=== PATIENT | male | born 2000 | race Caucasian/White ===

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

== ENCOUNTER 2019-10-20 13:11 | Emergency (ER) | payer BC ==
[2019-10-20] MEDS ORDERED: MORPHINE 4 MG/ML SYR ONE (14:46)
[2019-10-20] MEDS ORDERED: ONDANSETRON 4 MG/2 ML VIAL ONE (14:46)
[2019-10-20] MEDS ORDERED: NA CHLORIDE 0.9% 1,000 ML ONE (14:46)
[2019-10-20 14:47] LABS: Absolute Lymphocytes (CBC) 1.7 K/uL (0.7-4.9); Basophils % 0.9 % (0-1.3); Hematocrit 41.9 % (39.6-49.0); Lymphocytes % 19.3 % (15.3-44.8); MPV 9.1 fL (7.6-11.3); RBC Red Blood Cell Count 4.81 M/uL (4.33-5.43)
[2019-10-20 15:11] LABS: Albumin 4.1 g/dL (3.4-5.0); Bilirubin Direct 0.1 mg/dL (0-0.2); Bilirubin Total 0.5 mg/dL (0.2-1.0); Potassium 3.6 mmol/L (3.5-5.1); Protein, Total 7.1 g/dL (6.4-8.2)
--- NOTE | 2019-10-20 15:23 | RAD REPORT ---
EXAM DESCRIPTION: CT - Stone Protocol - 10/20/2019 2:52 pm CLINICAL HISTORY: Abdominal pain, dysuria, history of kidney stones COMPARISON: April 2018 CT comparison TECHNIQUE: Axial 5 mm thick images were obtained without oral or IV contrast. The sriit-si-hewu span s the entirety of the system partially obscuring uppermost abdomen and lung bases. All CT scans are performed using dose optimization technique as appropriate and may include automated exposure control or mA/KV adjustment according to patient size. FINDINGS: No hydronephrosis is present and no obstructing ureteral calculi. No suspicious renal mass es. Isodense masses and pyelonephritis are not excluded on a stone protocol CT scan. No urinary bladd er suspicious finding. No significant adrenal finding. Prostate gland normal. Imaged portions of the liver, spleen and pancreas show no suspicious findings on non-contrast imaging . No gallbladder or biliary tree abnormality identified. Gallbladder is contracted. Stones can be occ ult on CT imaging. No suspicious bowel findings. Appendix is normal. Moderate stool volume throughout colon. Rectum is d istended by stool. No hernia, mass or bulky lymphadenopathy noted. No free air, free fluid or inflammatory stranding. No significant bony abnormality. IMPRESSION: No hydronephrosis, obstructing calculus or acute finding. Isodense masses and pyelonephritis are not excluded on stone protocol technique. Moderate stool volume throughout the colon with the rectum distended by stool.
--- NOTE | 2019-10-20 15:56 | EDPHYS ---
Physician Documentation [facility] Name: Hari Rincon Age: 19 yrs Sex: Male : 2000 Arrival Date: 10/20/2019 Time: 13:15 Bed 27 Private MD: Cuba Whittaker B ED Physician Julius Koo HPI: 10/20 14:10 This 19 yrs old Male presents to ER via Ambulatory with complaints of Back jmm Pain. 14:10 The patient presents with pain that is acute. Onset: The symptoms/episode jmm began/occurred gradually, 2 day(s) ago. The pain does not radiate. Associated signs and symptoms: Pertinent positives: dysuria. This is a 19 year old male with a history of kidney stones that presents to the ED with complaints with bilateral flank pain worse on the left side. Denies vomiting or fever. Complains of difficulty with urination. . Historical: - Allergies: 13:22 No Known Allergies; sv - PMHx: 13:23 Kidney stones; sv - PSHx: 13:23 Lithotripsy; hand; sv - Immunization history:: Adult Immunizations up to date, Flu vaccine is not up to date. - Social history:: Smoking status: Patient/guardian denies using tobacco. - Ebola Screening: : No symptoms or risks identified at this time. ROS: 14:10 Constitutional: Negative for fever, chills, and weight loss, Cardiovascular: Negative jmm for chest pain, palpitations, and edema, Respiratory: Negative for shortness of breath, cough, wheezing, and pleuritic chest pain. 14:10 Back: Positive for flank pain, on the left. 14:10 All other systems are negative. Exam: 14:10 Constitutional: This is a well developed, well nourished patient who is awake, alert, jmm and in no acute distress. Head/Face: atraumatic. Eyes: EOMI, no conjunctival erythema appreciated ENT: Moist Mucus Membranes Neck: Trachea midline, Supple Chest/axilla: Normal chest wall appearance and motion. Cardiovascular: Regular rate and rhythm. No edema appreciated Respiratory: Normal respirations, no respiratory distress appreciated 14:10 Abdomen/GI: Inspection: abdomen appears normal, Bowel sounds: normal, Palpation: abdomen is soft and non-tender. 14:10 Back: CVA tenderness, is absent. 14:10 Musculoskeletal/extremity: ROM: intact in all extremities. 14:10 Skin: Appearance: Color: normal in color. 14:10 Neuro: Orientation: is normal, Mentation: is normal, Memory: is normal. 14:10 Psych: Behavior/mood is pleasant, cooperative. Vital Signs: 13:23 BP 148 / 100; Pulse 86; Resp 20; Temp 98; Pulse Ox 100% ; Weight 74.84 kg; Height 5 ft. sv 9 in. (175.26 cm); Pain 2/10; 13:23 Body Mass Index 24.37 (74.84 kg, 175.26 cm) sv MDM: 14:10 Patient medically screened. [facility] 15:54 Data reviewed: vital signs, nurses notes. Counseling: I had a detailed discussion with [facility] the patient and/or guardian regarding: the historical points, exam findings, and any diagnostic results supporting the discharge/admit diagnosis, lab results, radiology results, to return to the emergency department if symptoms worsen or persist or if there are any questions or concerns that arise at home. 10/20 14:21 Order name: Basic Metabolic Panel; Complete Time: 15:26 [facility] 10/20 14:21 Order name: CBC with Diff; Complete Time: 15: [facility] 10/20 14:21 Order name: Creatinine for Radiology; Complete Time: 15: [facility] 10/20 14:21 Order name: Hepatic Function; Complete Time: 15: [facility] 10/20 14:21 Order name: Lipase; Complete Time: 15: [facility] 10/20 14:50 Order name: Urine Dipstick--Ancillary (enter results) [place] 10/20 14:21 Order name: CT Stone Protocol; Complete Time: 15:26 [facility] 10/20 14:21 Order name: IV Saline Lock; Complete Time: 14:33 [facility] 10/20 14:21 Order name: Labs collected and sent; Complete Time: 14:33 [facility] Administered Medications: 15:22 Drug: Zofran 4 mg Route: IVP; Site: left antecubital; tr5 16:00 Follow up: Response: Nausea is decreased tr5 15:22 Drug: NS 0.9% 1000 ml Route: IV; Rate: 1 bolus; Site: left antecubital; tr5 16:00 Follow up: IV Status: Completed infusion; IV Intake: 1000ml tr5 15:23 Drug: morphine 4 mg {Note: RASS:0.} Route: IVP; Site: left antecubital; tr5 16:00 Follow up: Response: Pain is decreased; RASS: Alert and Calm (0) tr5 Disposition: 10/21 07:53 Co-signature as Attending Physician, Julius Koo MD I agree with the assessment and kdr plan of care. Disposition: 10/20/19 15:55 Discharged to Home. Impression: Flank Pain, Dysuria, Constipation, unspecified. - Condition is Stable. - Discharge Instructions: Constipation, Adult, Dysuria. - Prescriptions for Miralax 17 gram/dose Oral - take 1 packet by ORAL route once daily dilute powder in 8 ounces of water or juice; 1 Pack. - Work release form, Medication Reconciliation Form, Thank You Letter, Antibiotic Education, Prescription Opioid Use form. - Follow up: Cuba Whittaker MD; When: 2 - 3 days; Reason: Recheck today's complaints, Continuance of care, Re-evaluation by your physician. Signatures: Dispatcher [employer] EDTreasure Kaye, RN RN Julius Koo MD MD kdr Mickail, Joel, PA PA jmm Rodriguez, Tommie RN RN tr5 Corrections: (The following items were deleted from the chart) 10/20 16:12 15:55 10/20/2019 15:55 Discharged to Home. Impression: Flank Pain; Dysuria; tr5 Constipation, unspecified. Condition is Stable. Forms are Medication Reconciliation Form, Thank You Letter, Antibiotic Education, Prescription Opioid Use. Follow up: Cuba Whittaker; When: 2 - 3 days; Reason: Recheck today's complaints, Continuance of care, Re-evaluation by your physician. noemi
--- NOTE | 2019-10-20 15:56 | ER ---
Nurse's Notes [facility] Name: Hari Rincon Age: 19 yrs Sex: Male : 2000 Arrival Date: 10/20/2019 Time: 13:15 Bed 27 Private MD: Cuba Whittaker B Diagnosis: Flank Pain;Dysuria;Constipation, unspecified Presentation: 10/20 13:21 Presenting complaint: Patient states: bilateral low back pain started 2 days, denies sv dysuria. Transition of care: patient was not received from another setting of care. Onset of symptoms was October 18, 2019. Risk Assessment: Do you want to hurt yourself or someone else? Patient reports no desire to harm self or others. Care prior to arrival: Medication(s) given: Motrin, Flomax taken an hr ago. 13:21 Method Of Arrival: Ambulatory sv 13:21 Acuity: NANDO 3 sv 14:15 Initial Sepsis Screen: Does the patient meet any 2 criteria? No. Patient's initial tr5 sepsis screen is negative. Does the patient have a suspected source of infection? No. Patient's initial sepsis screen is negative. Historical: - Allergies: 13:22 No Known Allergies; sv - PMHx: 13:23 Kidney stones; sv - PSHx: 13:23 Lithotripsy; hand; sv - Immunization history:: Adult Immunizations up to date, Flu vaccine is not up to date. - Social history:: Smoking status: Patient/guardian denies using tobacco. - Ebola Screening: : No symptoms or risks identified at this time. Screenin:20 Abuse screen: Denies threats or abuse. Nutritional screening: No deficits noted. tr5 Tuberculosis screening: No symptoms or risk factors identified. Fall Risk None identified. Assessment: 14:20 General: Appears uncomfortable, Behavior is calm, cooperative, appropriate for age. tr5 Pain: Complains of pain in back. Neuro: Level of Consciousness is awake, Oriented to person, place, time. Cardiovascular: Heart tones present. Respiratory: Airway is patent Respiratory effort is even, unlabored, Respiratory pattern is regular, symmetrical, Breath sounds are clear bilaterally. GI: No signs and/or symptoms were reported involving the gastrointestinal system. : No signs and/or symptoms were reported regarding the genitourinary system. EENT: No signs and/or symptoms were reported regarding the EENT system. Derm: No signs and/or symptoms reported regarding the dermatologic system. Musculoskeletal: No signs and/or symptoms reported regarding the musculoskeletal system. Vital Signs: 13:23 BP 148 / 100; Pulse 86; Resp 20; Temp 98; Pulse Ox 100% ; Weight 74.84 kg; Height 5 ft. sv 9 in. (175.26 cm); Pain 2/10; 13:23 Body Mass Index 24.37 (74.84 kg, 175.26 cm) sv ED Course: 13:15 Patient arrived in ED. mr 13:15 Cuba Whittaker MD is Private Physician. mr 13:22 Triage completed. sv 13:24 Arm band placed on. sv 13:58 Brady Hicks PA is PHCP. jmm 13:58 Julius Koo MD is Attending Physician. jmm 14:10 Rolando Workman, KAITLIN is Primary Nurse. tr5 14:20 Bed in low position. Call light in reach. Side rails up X 1. tr5 14:37 Initial lab(s) drawn, by me, sent to lab. Inserted saline lock: 20 gauge in left lt1 antecubital area, using aseptic technique. 14:53 CT Stone Protocol In Process Unspecified. EDMS 14:53 CT completed. Patient tolerated procedure well. Patient moved back from CT. bq 15:55 Cuba Whittaker MD is Referral Physician. [facility] 16:11 No provider procedures requiring assistance completed. IV discontinued. tr5 Administered Medications: 15:22 Drug: Zofran 4 mg Route: IVP; Site: left antecubital; tr5 16:00 Follow up: Response: Nausea is decreased tr5 15:22 Drug: NS 0.9% 1000 ml Route: IV; Rate: 1 bolus; Site: left antecubital; tr5 16:00 Follow up: IV Status: Completed infusion; IV Intake: 1000ml tr5 15:23 Drug: morphine 4 mg {Note: RASS:0.} Route: IVP; Site: left antecubital; tr5 16:00 Follow up: Response: Pain is decreased; RASS: Alert and Calm (0) tr5 Intake: 16:00 IV: 1000ml; Total: 1000ml. tr5 Outcome: 15:55 Discharge ordered by . jmm 16:11 Discharged to home ambulatory, with family. tr5 16:11 Condition: stable 16:11 Discharge instructions given to patient, family, Instructed on discharge instructions, follow up and referral plans. medication usage, Demonstrated understanding of instructions, follow-up care, medications, Prescriptions given X 1. 16:12 Patient left the ED. tr5 Signatures: Dispatcher [employer] Treasure Zelaya RN RN Brady Hicks PA PA jmm Rivera, Supriya mr Glynndung, Syl [facility], [facility] Rolando Workman, KAITLIN RN tr5 Corrections: (The following items were deleted from the chart) 13:22 13:21 Care prior to arrival: None. sv sv 13:25 13:21 Acuity: NANDO 4 sv sv 13:25 13:23 Pulse 86bpm; Resp 20bpm; Pulse Ox 100%; Temp 98F; 74.84 kg; Height 5 ft. 9 in.; sv BMI: 24.3; Pain 2/10; sv
[2019-10-20 16:45] LABS: Urine Blood NEGATIVE (NEG); Urine Glucose NEGATIVE (NEG); Urine Protein NEGATIVE (NEG)
[2019-10-20 17:16] VITALS: BP 148/100; TEMP 98; O2SAT 100
== END 2019-10-20 16:12 | disposition home or self-care (01) ==
LOC: ER 13:11
DX: R30.0 Dysuria (principal); K59.00 Constipation, unspecified
CPT/HCPCS: 96361; 85025; 80048; 36415; 80076; 81003; 83690; 76377; 74176; 96375; 96374; 99284; J7030; J2405

== ENCOUNTER 2020-06-10 18:29 | Emergency (ER) | payer BC ==
[2020-06-10 19:03] LABS: Urine Blood 2+ (NEG); Urine Glucose NEGATIVE (NEG); Urine Protein NEGATIVE (NEG); Urine Specific Gravity 1.025 (1.005-1.030)
[2020-06-10] MEDS ORDERED: KETOROLAC 30 MG/ML INJ ONE (19:07)
[2020-06-10] MEDS ORDERED: NA CHLORIDE 0.9% 1,000 ML ONE (19:07)
[2020-06-10 19:25] LABS: Absolute Lymphocytes (CBC) 2.7 K/uL (0.7-4.9); Basophils % 0.8 % (0-1.3); Hematocrit 44.7 % (39.6-49.0); Lymphocytes % 29.4 % (15.3-44.8); MPV 10.3 fL (7.6-11.3); RBC Red Blood Cell Count 5.11 M/uL (4.33-5.43)
--- NOTE | 2020-06-10 19:28 | RAD REPORT ---
EXAM DESCRIPTION: CT - Stone Protocol - 06/10/2020 7:10 pm CLINICAL HISTORY: FLANK PAIN COMPARISON: Stone Protocol dated 10/20/2019 TECHNIQUE: Axial 5 mm thick images were obtained without oral or IV contrast. The uktuf-[id number]-hped span s the entirety of the system including uppermost abdomen and lung bases. All CT scans are performed using dose optimization technique as appropriate and may include automated exposure control or mA/KV adjustment according to patient size. FINDINGS: Mild left-sided hydronephrosis is present secondary to a 2 mm distal left ureteral calculu s. Stone is just proximal to the bladder. No other obstructing or nonobstructing calculi. No right-si ded hydronephrosis. No suspicious renal masses. Isodense masses and pyelonephritis are not excluded o n a stone protocol CT scan. No significant adrenal finding. No urinary bladder suspicious finding. Imaged portions of the liver, spleen and pancreas show no suspicious findings on non-contrast imaging . No gallbladder or biliary tree abnormality identified. No suspicious bowel findings. Appendix is normal. No hernia, mass or bulky lymphadenopathy noted. No free air, free fluid or inflammatory stranding. No significant bony abnormality. IMPRESSION: Mild left-sided hydronephrosis secondary to a 2 mm distal left ureteral calculus near th e UVJ. Isodense masses and pyelonephritis are not excluded on stone protocol technique.
[2020-06-10] MEDS ORDERED: MAGNESIUM SULFATE 1 gm IVPB 1 GM/100 ML BAG IV ONE (19:42)
[2020-06-10] MEDS ORDERED: TAMSULOSIN 0.4 MG SR CAP ONE (19:42)
[2020-06-10] MEDS ORDERED: MORPHINE 4 MG/ML SYR ONE (19:45)
[2020-06-10] MEDS ORDERED: ONDANSETRON 4 MG/2 ML VIAL ONE (19:45)
[2020-06-10 21:14] LABS: BUN Blood Urea Nitrogen 9 mg/dL (7-18); Bicarbonate 24 mmol/L (21-32); Glucose Level 84 mg/dL (74-106); Potassium 4.1 mmol/L (3.5-5.1); Sodium Level 143 mmol/L (136-145)
--- NOTE | 2020-06-10 21:15 | EDPHYS ---
Physician Documentation [facility] Name: Hari Rincon Age: 19 yrs Sex: Male : 2000 Arrival Date: 06/10/2020 Time: 18:31 Bed 8 Private MD: ED Physician Inderjit Acosta HPI: 06/10 19:50 This 19 yrs old Male presents to ER via Ambulatory with complaints of kb Possible Kidney Stone. 19:51 The patient complains of pain in the left flank. The pain radiates to the left lower kb quadrant. The patient has not experienced similar symptoms in the past. The patient has not recently seen a physician. 19:52 Onset: The symptoms/episode began/occurred today. Modifying factors: The symptoms are kb alleviated by nothing. the symptoms are aggravated by nothing. Associated signs and symptoms: Pertinent positives: dysuria, Pertinent negatives: diarrhea, dizziness, fever, urinary frequency, headache, hematuria, nausea, pain radiating to the lower extremities, vomiting. Severity of pain: At its worst the pain was moderate in the emergency department the pain is unchanged. 19:52 Pt reports left flank pain that radiates to left groin, painful urination and feels kb like he cannot empty bladder completely, . Historical: - Allergies: 18:44 No Known Allergies; ca1 - Home Meds: 18:44 None [Active]; ca1 - PMHx: 18:44 Kidney stones; ca1 - PSHx: 18:44 Lithotripsy; hand; ca1 - Immunization history:: Adult Immunizations up to date. - Social history:: Smoking status: Patient denies any tobacco usage or history of. ROS: 19:49 Constitutional: Negative for fever, chills, and weight loss, Cardiovascular: Negative kb for chest pain, palpitations, and edema, Respiratory: Negative for shortness of breath, cough, wheezing, and pleuritic chest pain, Abdomen/GI: Negative for abdominal pain, nausea, vomiting, diarrhea, and constipation, Back: Negative for injury and pain, MS/Extremity: Negative for injury and deformity, Skin: Negative for injury, rash, and discoloration, Neuro: Negative for headache, weakness, numbness, tingling, and seizure. 19:49 : Positive for flank pain, burning with urination. Exam: 19:49 Constitutional: This is a well developed, well nourished patient who is awake, alert, kb and in no acute distress. Head/Face: Normocephalic, atraumatic. Chest/axilla: Normal chest wall appearance and motion. Nontender with no deformity. No lesions are appreciated. Cardiovascular: Regular rate and rhythm with a normal S1 and S2. No gallops, murmurs, or rubs. Normal PMI, no JVD. No pulse deficits. Respiratory: Lungs have equal breath sounds bilaterally, clear to auscultation and percussion. No rales, rhonchi or wheezes noted. No increased work of breathing, no retractions or nasal flaring. Back: No spinal tenderness. No costovertebral tenderness. Full range of motion. Skin: Warm, dry with normal turgor. Normal color with no rashes, no lesions, and no evidence of cellulitis. MS/ Extremity: Pulses equal, no cyanosis. Neurovascular intact. Full, normal range of motion. Neuro: Awake and alert, GCS 15, oriented to person, place, time, and situation. Cranial nerves II-XII grossly intact. Motor strength 5/5 in all extremities. Sensory grossly intact. Cerebellar exam normal. Normal gait. 19:49 Abdomen/GI: Inspection: abdomen appears normal, Bowel sounds: normal, in all quadrants, Palpation: soft, in all quadrants, mild abdominal tenderness, in the left lower quadrant. Vital Signs: 18:41 BP 138 / 93; Pulse 68; Resp 15 S; Temp 98(TE); Pulse Ox 100% on R/A; Weight 74.84 kg ca1 (R); Height 5 ft. 10 in. (177.80 cm) (R); Pain 7/10; 19:31 BP 145 / 95; Pulse 70; Resp 18; Pulse Ox 100% ; mg2 19:58 BP 125 / 84; Pulse 80; Resp 17; Pulse Ox 99% on R/A; rv 20:31 BP 121 / 87; Pulse 81; Resp 18; Pulse Ox 100% on R/A; mg2 21:22 BP 124 / 83; Pulse 60; Resp 17; Temp 98; Pulse Ox 100% on R/A; rv 18:41 Body Mass Index 23.67 (74.84 kg, 177.80 cm) ca1 MDM: 18:47 Patient medically screened. kb 19:50 Data reviewed: vital signs, nurses notes. Data interpreted: Pulse oximetry: on room air kb is 100 %. Interpretation: normal. Counseling: I had a detailed discussion with the patient and/or guardian regarding: the historical points, exam findings, and any diagnostic results supporting the discharge/admit diagnosis, lab results, radiology results, the need for outpatient follow up, a family practitioner, a urologist, to return to the emergency department if symptoms worsen or persist or if there are any questions or concerns that arise at home. 06/10 18:52 Order name: Basic Metabolic Panel; Complete Time: 21:14 kb 06/10 18:52 Order name: CBC with Diff; Complete Time: 19:40 kb 06/10 18:52 Order name: CT Stone Protocol; Complete Time: 19:30 kb 06/10 18:54 Order name: Urine Dipstick--Ancillary (enter results); Complete Time: 19:05 eb 06/10 18:36 Order name: Urine Dipstick-Ancillary (obtain specimen); Complete Time: 18:55 kb 06/10 18:52 Order name: IV Saline Lock; Complete Time: 19:02 kb 06/10 18:52 Order name: Labs collected and sent; Complete Time: 19:02 kb Administered Medications: 19:02 Drug: TORadol - Ketorolac 15 mg Route: IVP; Site: left antecubital; bp 19:30 Follow up: Response: No adverse reaction mg2 19:02 Drug: NS 0.9% 1000 ml Route: IV; Rate: 1000 ml; Site: left antecubital; bp 19:30 Follow up: Response: No adverse reaction; IV Status: Completed infusion; IV Intake: mg2 1000ml 19:41 Drug: morphine 4 mg Route: IVP; Site: left antecubital; mg2 21:06 Follow up: Response: No adverse reaction; RASS: Alert and Calm (0) mg2 19:41 Drug: Zofran (Ondansetron) 4 mg Route: IVP; Site: left antecubital; mg2 21:06 Follow up: Response: No adverse reaction mg2 19:42 Drug: Magnesium Sulfate 1 grams Route: IVPB; Infused Over: 1 hrs; Site: left mg2 antecubital; 21:23 Follow up: IV Status: Completed infusion; IV Intake: 100ml rv 19:42 Drug: Flomax 0.4 mg Route: PO; mg2 21:06 Follow up: Response: No adverse reaction mg2 Disposition: 06/11 07:06 Co-signature as Attending Physician, Inderjit Acosta MD. rn Disposition: 06/10/20 21:15 Discharged to Home. Impression: Calculus of kidney and ureter. - Condition is Stable. - Discharge Instructions: Kidney Stones, [id number], Dietary Guidelines to Help Prevent Kidney Stones. - Prescriptions for Zofran 4 mg Oral Tablet - take 1 tablet by ORAL route every 6 hours As needed; 20 tablet. Flomax 0.4 mg Oral Capsule, Sust. Release 24 hr - take 1 capsule by ORAL route once daily 1/2 hour following the same meal each day; 10 capsule. Diclofenac Sodium 75 mg Oral Tablet, Delayed Release (E.C.) - take 1 tablet by ORAL route 2 times per day As needed; 30 tablet. - Medication Reconciliation Form, Thank You Letter, Antibiotic Education, Prescription Opioid Use form. - Follow up: Emergency Department; When: As needed; Reason: Worsening of condition. Follow up: Private Physician; When: 2 - 3 days; Reason: Recheck today's complaints, Continuance of care, Re-evaluation by your physician. Signatures: Dispatcher [employer] EDMS Josy Kim, TRANSPORT TECHNICIAN-C TRANSPORT TECHNICIAN-Ckb Inderjit Acosta MD MD rn Peltier, Brian RN RN Bahman Shah, Enrique Fair RN, Yu Ruiz RN RN RN ca1 Corrections: (The following items were deleted from the chart) 06/10 21:23 21:15 06/10/2020 21:15 Discharged to Home. Impression: Calculus of kidney and ureter. rv Condition is Stable. Forms are Medication Reconciliation Form, Thank You Letter, Antibiotic Education, Prescription Opioid Use. Follow up: Emergency Department; When: As needed; Reason: Worsening of condition. Follow up: Private Physician; When: 2 - 3 days; Reason: Recheck today's complaints, Continuance of care, Re-evaluation by your physician. kb
--- NOTE | 2020-06-10 21:15 | ER ---
Nurse's Notes [facility] Name: Hari Rincon Age: 19 yrs Sex: Male : 2000 Arrival Date: 06/10/2020 Time: 18:31 Bed 8 Private MD: Diagnosis: Calculus of kidney and ureter Presentation: 06/10 18:41 Chief complaint: Patient states: L flank pain radiating to the front since 10 hrs ago. ca1 Had previous kidney stones and feels exactly the same. Reports nausea and burning with urination. Coronavirus screen: Proceed with normal triage. Patient denies a cough. Patient denies shortness of breath or difficulty breathing. Patient denies measured and/or subjective temperature greater than 100.4F prior to today's visit. Patient denies travel on a cruise ship or to a country the [facility] currently lists as an affected area. Patient denies contact with known and/or suspected case of COVID-19. Ebola Screen: Patient negative for fever greater than or equal to 101.5 degrees Fahrenheit, and additional compatible Ebola Virus Disease symptoms Patient denies exposure to infectious person. Patient denies travel to an Ebola-affected area in the 21 days before illness onset. No symptoms or risks identified at this time. Initial Sepsis Screen: Does the patient meet any 2 criteria? No. Patient's initial sepsis screen is negative. Does the patient have a suspected source of infection? No. Patient's initial sepsis screen is negative. Risk Assessment: Do you want to hurt yourself or someone else? Patient reports no desire to harm self or others. Onset of symptoms was June 10, 2020. 18:41 Method Of Arrival: Ambulatory ca1 18:41 Acuity: NANDO 3 ca1 Triage Assessment: 18:49 General: Appears in no apparent distress. uncomfortable, Behavior is calm, cooperative, bp appropriate for age. Pain: Complains of pain in left flank. EENT: No deficits noted. Neuro: No deficits noted. Cardiovascular: No deficits noted. Respiratory: No deficits noted. GI: Abdomen is non-distended. : Reports burning with urination. Derm: No deficits noted. Musculoskeletal: No deficits noted. Historical: - Allergies: 18:44 No Known Allergies; ca1 - Home Meds: 18:44 None [Active]; ca1 - PMHx: 18:44 Kidney stones; ca1 - PSHx: 18:44 Lithotripsy; hand; ca1 - Immunization history:: Adult Immunizations up to date. - Social history:: Smoking status: Patient denies any tobacco usage or history of. Screenin:50 Abuse screen: Denies threats or abuse. Denies injuries from another. Nutritional bp screening: No deficits noted. Tuberculosis screening: No symptoms or risk factors identified. Fall Risk None identified. Assessment: 18:50 General: SEE TRIAGE NOTE. bp 19:21 General: Appears in no apparent distress. comfortable, Behavior is calm, cooperative. mg2 Pain: Complains of pain in left flank Pain currently is 5 out of 10 on a pain scale. Quality of pain is described as aching, Pain began gradually. Neuro: Level of Consciousness is awake, alert, obeys commands, Oriented to person, place, time, situation. Cardiovascular: Capillary refill < 3 seconds Patient's skin is warm and dry. Respiratory: Airway is patent Respiratory effort is even, unlabored, Respiratory pattern is regular, symmetrical. GI: Bowel sounds present X 4 quads. Abd is soft X 4 quads. :. EENT: No signs and/or symptoms were reported regarding the EENT system. Derm: Skin is intact, is healthy with good turgor, Skin is pink, warm \T\ dry. normal. Musculoskeletal: Circulation, motion, and sensation intact. Capillary refill < 3 seconds. 20:31 Reassessment: Patient appears in no apparent distress at this time. Patient and/or mg2 family updated on plan of care and expected duration. Pain level reassessed. Patient is alert, oriented x 3, equal unlabored respirations, skin warm/dry/pink. Vital Signs: 18:41 BP 138 / 93; Pulse 68; Resp 15 S; Temp 98(TE); Pulse Ox 100% on R/A; Weight 74.84 kg ca1 (R); Height 5 ft. 10 in. (177.80 cm) (R); Pain 7/10; 19:31 BP 145 / 95; Pulse 70; Resp 18; Pulse Ox 100% ; mg2 19:58 BP 125 / 84; Pulse 80; Resp 17; Pulse Ox 99% on R/A; rv 20:31 BP 121 / 87; Pulse 81; Resp 18; Pulse Ox 100% on R/A; mg2 21:22 BP 124 / 83; Pulse 60; Resp 17; Temp 98; Pulse Ox 100% on R/A; rv 18:41 Body Mass Index 23.67 (74.84 kg, 177.80 cm) ca1 ED Course: 18:31 Patient arrived in ED. bp1 18:36 Josy Kim FNP-C is PHCP. kb 18:36 Inderjit Acosta MD is Attending Physician. kb 18:44 Triage completed. ca1 18:44 Arm band placed on right wrist. ca1 18:45 Matti Herrera, KAITLIN is Primary Nurse. bp 18:50 Patient has correct armband on for positive identification. Bed in low position. Call bp light in reach. Side rails up X2. 19:00 Inserted saline lock: 18 gauge in left antecubital area, using aseptic technique. Blood mt2 collected. 19:01 Initial lab(s) drawn, by me, sent to lab. mt2 19:02 Basic Metabolic Panel Sent. mt2 19:02 CBC with Diff Sent. mt2 19:11 CT Stone Protocol In Process Unspecified. EDMS 19:27 No provider procedures requiring assistance completed. mg2 Administered Medications: 19:02 Drug: TORadol - Ketorolac 15 mg Route: IVP; Site: left antecubital; bp 19:30 Follow up: Response: No adverse reaction mg2 19:02 Drug: NS 0.9% 1000 ml Route: IV; Rate: 1000 ml; Site: left antecubital; bp 19:30 Follow up: Response: No adverse reaction; IV Status: Completed infusion; IV Intake: mg2 1000ml 19:41 Drug: morphine 4 mg Route: IVP; Site: left antecubital; mg2 21:06 Follow up: Response: No adverse reaction; RASS: Alert and Calm (0) mg2 19:41 Drug: Zofran (Ondansetron) 4 mg Route: IVP; Site: left antecubital; mg2 21:06 Follow up: Response: No adverse reaction mg2 19:42 Drug: Magnesium Sulfate 1 grams Route: IVPB; Infused Over: 1 hrs; Site: left mg2 antecubital; 21:23 Follow up: IV Status: Completed infusion; IV Intake: 100ml rv 19:42 Drug: Flomax 0.4 mg Route: PO; mg2 21:06 Follow up: Response: No adverse reaction mg2 Intake: 19:30 IV: 1000ml; Total: 1000ml. mg2 21:23 IV: 100ml; Total: 1100ml. rv Outcome: 21:15 Discharge ordered by MD. paige 21:23 Patient left the ED. rv Signatures: Dispatcher [employer] EDMS Josy Kim, KORTNEY MARTINEZ-Matti Presley, RN RN bp Bahman Wallace RN RN mg2 Enrique Marsh RN RN rv Yu Carvajal RN RN [facility] Jess Mujica [facility] Alida Lora RN RN mt2
[2020-06-10 21:48] VITALS: TEMP 98
[2020-06-10 21:52] VITALS: O2SAT 100
[2020-06-10 21:53] VITALS: BP 124/83
== END 2020-06-10 21:23 | disposition home or self-care (01) ==
LOC: ER 18:29
DX: N20.2 Calculus of kidney with calculus of ureter (principal); Z87.442 Personal history of urinary calculi
CPT/HCPCS: 96365; 85025; 80048; 36415; 81003; 76377; 74176; 96375; 99284; 96366; J3475; J7030; J2405

== ENCOUNTER 2020-06-11 01:23 | Emergency (ER) | payer BC ==
[2020-06-11] MEDS ORDERED: MORPHINE 4 MG/ML SYR ONE (01:49)
[2020-06-11] MEDS ORDERED: ONDANSETRON 4 MG/2 ML VIAL ONE (01:50)
[2020-06-11] MEDS ORDERED: KETOROLAC 30 MG/ML INJ ONE (01:56)
[2020-06-11] MEDS ORDERED: NA CHLORIDE 0.9% 1,000 ML ONE (01:56)
[2020-06-11] MEDS ORDERED: FENTANYL CITR 100 MCG/2 ML ONE (02:32)
--- NOTE | 2020-06-11 04:07 | ER ---
Nurse's Notes [facility] Name: Hari Rincon Age: 19 yrs Sex: Male : 2000 Arrival Date: 06/11/2020 Time: 01:23 Bed 14 Private MD: Diagnosis: Hydronephrosis with renal and ureteral calculous obstruction-2mm distal left Presentation: 06/11 01:29 Chief complaint: Patient states: Reports he was here earlier tonight, was diagnosed ea with kidney stone, pt reports the pain has gotten worse since. Coronavirus screen: Proceed with normal triage. Ebola Screen: No symptoms or risks identified at this time. Initial Sepsis Screen: Does the patient meet any 2 criteria? HR > 90 bpm. No. Patient's initial sepsis screen is negative. Does the patient have a suspected source of infection? No. Patient's initial sepsis screen is negative. Risk Assessment: Do you want to hurt yourself or someone else? Patient reports no desire to harm self or others. Onset of symptoms was June 11, 2020. 01:29 Method Of Arrival: Wheelchair ea 01:29 Acuity: NANDO 3 ea Triage Assessment: 01:31 General: Appears uncomfortable, Behavior is appropriate for age. Pain: Complains of ea pain in left flank. Historical: - Allergies: 02:51 No Known Allergies; ea - PMHx: 02:51 Kidney stones; ea - PSHx: 02:51 Lithotripsy; hand; ea - Immunization history:: Adult Immunizations up to date. - Social history:: Smoking status: unknown. Screenin:31 Abuse screen: Denies threats or abuse. Nutritional screening: No deficits noted. ea Tuberculosis screening: No symptoms or risk factors identified. Fall Risk None identified. Assessment: 01:35 General: Appears uncomfortable, Behavior is restless. Pain: Complains of pain in left ea flank and left lower quadrant. Neuro: Level of Consciousness is awake, alert, obeys commands, Oriented to person, place, time. Respiratory: Airway is patent Respiratory effort is even, unlabored, Respiratory pattern is regular, symmetrical. Derm: Skin is pink, warm \T\ dry. 01:51 Reassessment: Pt resting with eyes closed, prior to administration of pain medication. ea Pt responded to verbal stimulus, when asked what his pain level was pt reported it was a 9/10 on his left side. 02:40 Reassessment: Patient and/or family updated on plan of care and expected duration. Pain ea level reassessed. Patient is alert, oriented x 3, equal unlabored respirations, skin warm/dry/pink. 04:18 Reassessment: Patient and/or family updated on plan of care and expected duration. Pain ea level reassessed. Patient is alert, oriented x 3, equal unlabored respirations, skin warm/dry/pink. Discharge instruction given to patient, verbalized the understanding of instruction. Pt awaiting for ride to come pick him up. 04:20 Reassessment: Patient and/or family updated on plan of care and expected duration. Pain ea level reassessed. Patient is alert, oriented x 3, equal unlabored respirations, skin warm/dry/pink. Pt ride at facility, pt left ED ambulatory, tolerating well. Vital Signs: 01:29 BP 150 / 94; Pulse 104; Resp 19; Temp 98.6; Pulse Ox 99% ; Weight 74.84 kg; Height 5 ea ft. 10 in. (177.80 cm); Pain 9/10; 02:50 BP 128 / 72; Pulse 58; Resp 16; Pulse Ox 98% ; ea 03:16 BP 114 / 70; Pulse 57; Resp 16; Pulse Ox 96% on R/A; ea 04:19 BP 121 / 61; Pulse 60; Resp 18; Temp 98.4; Pulse Ox 98% ; ea 01:29 Body Mass Index 23.67 (74.84 kg, 177.80 cm) ea ED Course: 01:23 Patient arrived in ED. ds1 01:26 Pippa Morales, RN is Primary Nurse. ea 01:31 Triage completed. ea 01:31 Arm band placed on right wrist. Patient placed in an exam room, on a stretcher, on ea pulse oximetry. 01:31 Patient has correct armband on for positive identification. Bed in low position. Call ea light in reach. 01:35 Josy Kim FNP-C is PHCP. kb 01:35 Gage Rosa MD is Attending Physician. kb 01:35 Inserted saline lock: 22 gauge in right forearm, using aseptic technique. ea 04:06 Miguel Andres MD is Referral Physician. roni 04:19 No provider procedures requiring assistance completed. IV discontinued, intact, ea bleeding controlled, No redness/swelling at site. Pressure dressing applied. Administered Medications: 01:45 Drug: morphine 4 mg Route: IVP; Site: right forearm; ea 02:00 Follow up: Response: No adverse reaction; Pain is decreased ea 01:45 Drug: Zofran (Ondansetron) 4 mg Route: IVP; Site: right forearm; ea 02:00 Follow up: Response: No adverse reaction ea 01:50 Drug: NS 0.9% 1000 ml Route: IV; Rate: 1000 ml; Site: right forearm; ea 02:30 Follow up: Response: No adverse reaction; IV Status: Completed infusion; IV Intake: ea 1000ml 01:50 Drug: TORadol 30 mg Route: IVP; Site: right forearm; ea 02:00 Follow up: Response: No adverse reaction ea 02:26 Drug: fentaNYL (PF) 50 mcg {Note: rass 0.} Route: IVP; Site: right forearm; ea 03:17 Follow up: Response: No adverse reaction; Pain is decreased ea Intake: 02:30 IV: 1000ml; Total: 1000ml. ea Outcome: 04:06 Discharge ordered by . roni 04:20 Discharge instructions given to patient, Instructed on discharge instructions, follow ea up and referral plans. medication usage, Demonstrated understanding of instructions, follow-up care, medications, Prescriptions given X 2. 04:20 Discharged to home ambulatory, with family. ea 04:20 Condition: stable 04:20 Patient left the ED. ea Signatures: Josy Kim, WEAPONS SYSTEM INSTRUMENT MECHANIC-C WEAPONS SYSTEM INSTRUMENT MECHANIC-Ckb Gage Rosa MD MD cha Sanford, Demi ds1 Pippa Morales RN RN ea Corrections: (The following items were deleted from the chart) 01:45 General: Appears uncomfortable, Behavior is restless, ea ea 53 01:45 Pain: Complains of pain in left flank and left lower quadrant ea ea 01:45 Neuro: Level of Consciousness is awake, alert, obeys commands, Oriented to ea person, place, time, ea 01:45 Respiratory: Airway is patent Respiratory effort is even, unlabored, Respiratory ea pattern is regular, symmetrical, ea 01:45 Derm: Skin is pink, warm \T\ dry. ea ea
--- NOTE | 2020-06-11 04:07 | EDPHYS ---
Physician Documentation [facility] Name: Hari Rincon Age: 19 yrs Sex: Male : 2000 Arrival Date: 06/11/2020 Time: 01:23 Bed 14 Private MD: EVA Physician Gage Rosa HPI: 06/11 01:40 This 19 yrs old Male presents to ER via Wheelchair with complaints of Kidney kb Stone. 01:40 The patient complains of pain in the left flank. The pain radiates to the left lower kb quadrant. Onset: The symptoms/episode began/occurred this morning. Modifying factors: The symptoms are alleviated by nothing. the symptoms are aggravated by nothing. Associated signs and symptoms: Pertinent positives: dysuria, Pertinent negatives: diarrhea, dizziness, fever, urinary frequency, headache, hematuria, nausea, pain radiating to the lower extremities, vomiting. Severity of pain: At its worst the pain was moderate severe in the emergency department the pain is unchanged. The patient has experienced similar episodes in the past. The patient has been recently seen at the [facility] Emergency Department, today, by me, for similar complaints labs were performed, CT scan was performed, was given a prescription for pain medications, was given a prescription for an antiemetic. Pt was diagnosed with 2mm stone distal left ureter with mild hydronephrosis earlier tonight. Pain resolved with morphine at the time, labs were normal. Pt discharged home to follow up with nephrology. Returned to ER for increasing pain.. Historical: - Allergies: 02:51 No Known Allergies; ea - PMHx: 02:51 Kidney stones; ea - PSHx: 02:51 Lithotripsy; hand; ea - Immunization history:: Adult Immunizations up to date. - Social history:: Smoking status: unknown. ROS: 01:39 Constitutional: Negative for fever, chills, and weight loss, Cardiovascular: Negative kb for chest pain, palpitations, and edema, Respiratory: Negative for shortness of breath, cough, wheezing, and pleuritic chest pain, Back: Negative for injury and pain, MS/Extremity: Negative for injury and deformity, Skin: Negative for injury, rash, and discoloration, Neuro: Negative for headache, weakness, numbness, tingling, and seizure. 01:39 Abdomen/GI: Positive for abdominal pain, Negative for nausea, vomiting, and diarrhea. kb 01:39 : Positive for burning with urination, difficulty urinating. Exam: 01:39 Constitutional: This is a well developed, well nourished patient who is awake, alert, kb and in no acute distress. Head/Face: Normocephalic, atraumatic. Chest/axilla: Normal chest wall appearance and motion. Nontender with no deformity. No lesions are appreciated. Cardiovascular: Regular rate and rhythm with a normal S1 and S2. No gallops, murmurs, or rubs. Normal PMI, no JVD. No pulse deficits. Respiratory: Lungs have equal breath sounds bilaterally, clear to auscultation and percussion. No rales, rhonchi or wheezes noted. No increased work of breathing, no retractions or nasal flaring. Back: No spinal tenderness. No costovertebral tenderness. Full range of motion. Skin: Warm, dry with normal turgor. Normal color with no rashes, no lesions, and no evidence of cellulitis. MS/ Extremity: Pulses equal, no cyanosis. Neurovascular intact. Full, normal range of motion. Neuro: Awake and alert, GCS 15, oriented to person, place, time, and situation. Cranial nerves II-XII grossly intact. Motor strength 5/5 in all extremities. Sensory grossly intact. Cerebellar exam normal. Normal gait. 01:39 Abdomen/GI: Inspection: abdomen appears normal, Bowel sounds: normal, in all quadrants, Palpation: soft, in all quadrants, mild abdominal tenderness, in the left lower quadrant. Vital Signs: 01:29 BP 150 / 94; Pulse 104; Resp 19; Temp 98.6; Pulse Ox 99% ; Weight 74.84 kg; Height 5 ea ft. 10 in. (177.80 cm); Pain 9/10; 02:50 BP 128 / 72; Pulse 58; Resp 16; Pulse Ox 98% ; ea 03:16 BP 114 / 70; Pulse 57; Resp 16; Pulse Ox 96% on R/A; ea 04:19 BP 121 / 61; Pulse 60; Resp 18; Temp 98.4; Pulse Ox 98% ; ea 01:29 Body Mass Index 23.67 (74.84 kg, 177.80 cm) ea MDM: 01:35 Patient medically screened. kb 01:39 Data reviewed: vital signs, nurses notes. Data interpreted: Pulse oximetry: on room air kb is 99 %. Interpretation: normal. 01:44 ED course: Discussed pt condition and prior visit as well as diagnostics with ERP. kb Recommended NS bolus and 30mg toradol IV. . 02:44 Transition of care: After a detail discussion of the patient's case, care is kb transferred to Gage Rosa MD. 06/11 01:38 Order name: IV Start; Complete Time: 01:39 kb Administered Medications: 01:45 Drug: morphine 4 mg Route: IVP; Site: right forearm; ea 02:00 Follow up: Response: No adverse reaction; Pain is decreased ea 01:45 Drug: Zofran (Ondansetron) 4 mg Route: IVP; Site: right forearm; ea 02:00 Follow up: Response: No adverse reaction ea 01:50 Drug: NS 0.9% 1000 ml Route: IV; Rate: 1000 ml; Site: right forearm; ea 02:30 Follow up: Response: No adverse reaction; IV Status: Completed infusion; IV Intake: ea 1000ml 01:50 Drug: TORadol 30 mg Route: IVP; Site: right forearm; ea 02:00 Follow up: Response: No adverse reaction ea 02:26 Drug: fentaNYL (PF) 50 mcg {Note: rass 0.} Route: IVP; Site: right forearm; ea 03:17 Follow up: Response: No adverse reaction; Pain is decreased ea Disposition: 08:42 Co-signature as Attending Physician, Gage Rosa MD I agree with the assessment and roni plan of care. Disposition: 06/11/20 04:06 Discharged to Home. Impression: Hydronephrosis with renal and ureteral calculous obstruction - 2mm distal left. - Condition is Stable. - Discharge Instructions: Kidney Stones, Kidney Stones, [id number], Hydronephrosis, Dietary Guidelines to Help Prevent Kidney Stones. - Prescriptions for Tylenol- Codeine #3 300-30 mg Oral Tablet - take 2 tablets by ORAL route every 6 hours As needed; 20 tablet. Bactrim DS 800- 160 mg Oral Tablet - take 1 tablet by ORAL route every 12 hours for 5 days; 10 tablet. - Medication Reconciliation Form, Thank You Letter, Antibiotic Education, Prescription Opioid Use form. - Follow up: Private Physician; When: 2 - 3 days; Reason: Recheck today's complaints, Continuance of care, Re-evaluation by your physician. Follow up: Miguel Andres; When: 2 - 3 days; Reason: Recheck today's complaints, Re-evaluation by your physician. - Problem is new. - Symptoms have improved. Signatures: Josy Kim, VIDEO INTERN-C VIDEO INTERN-Ckb Gage Rosa MD MD cha Antunez, Elena RN RN ea Corrections: (The following items were deleted from the chart) 01:40 01:39 Constitutional: Negative for fever, chills, and weight loss, Cardiovascular: kb Negative for chest pain, palpitations, and edema, Respiratory: Negative for shortness of breath, cough, wheezing, and pleuritic chest pain, Back: Negative for injury and pain, MS/Extremity: Negative for injury and deformity, Skin: Negative for injury, rash, and discoloration, Neuro: Negative for headache, weakness, numbness, tingling, and seizure, kb 04:20 04:06 06/11/2020 04:06 Discharged to Home. Impression: Hydronephrosis with renal and ea ureteral calculous obstruction - 2mm distal left. Condition is Stable. Discharge Instructions: Kidney Stones, Kidney Stones, Dtie-il-Pece, Hydronephrosis, Dietary Guidelines to Help Prevent Kidney Stones. Prescriptions for Tylenol-Codeine #3 300-30 mg Oral Tablet - take 2 tablets by ORAL route every 6 hours As needed; 20 tablet, Bactrim DS 800-160 mg Oral Tablet - take 1 tablet by ORAL route every 12 hours for 5 days; 10 tablet. and Forms are Medication Reconciliation Form, Thank You Letter, Antibiotic Education, Prescription Opioid Use. Follow up: Private Physician; When: 2 - 3 days; Reason: Recheck today's complaints, Continuance of care, Re-evaluation by your physician. Follow up: Miguel Andres; When: 2 - 3 days; Reason: Recheck today's complaints, Re-evaluation by your physician. Problem is new. Symptoms have improved. roni
[2020-06-11 04:53] VITALS: BP 121/61; TEMP 98.4; O2SAT 98
== END 2020-06-11 04:20 | disposition home or self-care (01) ==
LOC: ER 01:23
DX: N13.2 Hydronephrosis with renal and ureteral calculous obstruction (principal); Z87.442 Personal history of urinary calculi
CPT/HCPCS: 96361; 96375; 96374; 99284; J3010; J7030; J2405

== ENCOUNTER 2020-06-11 21:47 | Emergency (ER) | payer BC ==
[2020-06-11 22:31] LABS: Urine Blood 2+ (NEG); Urine Glucose NEGATIVE (NEG); Urine Protein NEGATIVE (NEG); Urine Specific Gravity 1.005 (1.005-1.030)
[2020-06-11] MEDS ORDERED: KETOROLAC 30 MG/ML INJ ONE (23:36)
[2020-06-11] MEDS ORDERED: ONDANSETRON 4 MG/2 ML VIAL ONE (23:37)
[2020-06-12 00:01] LABS: Absolute Lymphocytes (CBC) 2.7 K/uL (0.7-4.9); Basophils % 0.6 % (0-1.3); Lymphocytes % 33.2 % (15.3-44.8); MPV 10.4 fL (7.6-11.3); RBC Red Blood Cell Count 4.76 M/uL (4.33-5.43)
[2020-06-12 00:09] LABS: Potassium 3.3 mmol/L (3.5-5.1)
--- NOTE | 2020-06-12 00:24 | ER ---
Nurse's Notes [facility] Name: Hari Rincon Age: 19 yrs Sex: Male : 2000 Arrival Date: 06/11/2020 Time: 21:50 Bed 14 Private MD: Diagnosis: Hydronephrosis with renal and ureteral calculous obstruction Presentation: 06/11 22:21 Chief complaint: Patient states: c/o L lower back pain radiating to groin an L leg. Pt ks7 seen in ED last night for similar complaint, d/c DX: kidney stones. Pain intolerable tonight. Coronavirus screen: Patient denies a cough. Patient denies shortness of breath or difficulty breathing. Patient denies measured and/or subjective temperature greater than 100.4F prior to today's visit. Patient denies travel on a cruise ship or to a country the [facility] currently lists as an affected area. Patient denies contact with known and/or suspected case of COVID-19. Proceed with normal triage. 22:21 Method Of Arrival: Ambulatory ks7 22:21 Ebola Screen: Patient negative for fever greater than or equal to 101.5 degrees ks7 Fahrenheit, and additional compatible Ebola Virus Disease symptoms Patient denies exposure to infectious person. Patient denies travel to an Ebola-affected area in the 21 days before illness onset. No symptoms or risks identified at this time. Initial Sepsis Screen: Does the patient meet any 2 criteria? No. Patient's initial sepsis screen is negative. Does the patient have a suspected source of infection? No. Patient's initial sepsis screen is negative. Risk Assessment: Do you want to hurt yourself or someone else? Patient reports no desire to harm self or others. Onset of symptoms was June 07, 2020. 22:21 Acuity: NANDO 3 ks7 Triage Assessment: 22:27 General: Appears uncomfortable. Pain: Complains of pain in buttocks and back Pain ks7 radiates to back of left leg. Musculoskeletal: pain to L back, flank, buttock 06/12 00:31 General: Behavior is cooperative. ks7 Historical: - Allergies: 06/11 22:26 No Known Allergies; ks7 - Home Meds: 22:27 None [Active]; ks7 - Immunization history:: Adult Immunizations up to date. - Social history:: Smoking status: Patient denies any tobacco usage or history of. Screenin:30 Abuse screen: Denies threats or abuse. Nutritional screening: No deficits noted. ks7 Tuberculosis screening: No symptoms or risk factors identified. Fall Risk None identified. Assessment: 22:30 General: Appears uncomfortable. Neuro: No deficits noted. : CVA tenderness noted on ks7 left Reports pain in left flank(s), in lower back. 06/12 00:08 Reassessment: Patient states feeling better. 3/10 pain. pt feels better, able to sleep. ks7 Vital Signs: 06/11 22:21 BP 137 / 91; Pulse 80; Resp 18; Temp 99.1(TE); Pulse Ox 99% on R/A; Weight 74.84 kg; ks7 Height 5 ft. 10 in. (177.80 cm); Pain 8/10; 22:29 Temp 99.2(TE); ks7 23:33 BP 113 / 86; Pulse 58; Resp 18; Pulse Ox 99% on R/A; Pain 8/10; ks7 06/12 00:07 BP 112 / 62; Pulse 60; Resp 16; Temp 98(TE); Pulse Ox 98% on R/A; Pain 3/10; ks7 00:07 BP 112 / 62; Pulse 66; Resp 16; Temp 98(TE); Pulse Ox 99% ; Pain 3/10; ks7 00:07 Temp 98(TE); Pulse Ox 99% ; Pain 3/10; ks7 00:30 BP 113 / 65; Pulse 65; Resp 16; Temp 98(TE); Pulse Ox 98% on R/A; Pain 3/10; ks7 06/11 22:21 Body Mass Index 23.67 (74.84 kg, 177.80 cm) ks7 ED Course: 06/11 21:50 Patient arrived in ED. ag3 22:19 Rei Ray, KAITLIN is Primary Nurse. rr5 22:19 Favian Turpin PA is PHCP. jr8 22:20 Gage Rosa MD is Attending Physician. jr8 22:26 Triage completed. ks7 22:27 Arm band placed on right wrist. Patient urine sample obtained. ks7 22:30 Patient has correct armband on for positive identification. Bed in low position. Call ks7 light in reach. Side rails up X2. 22:30 Urine Dipstick--Ancillary (enter results) Sent. ks7 22:30 No provider procedures requiring assistance completed. ks7 22:42 Helen Nolasco, RN is Primary Nurse. ks7 23:24 Inserted saline lock: 20 gauge in right antecubital area, using aseptic technique. 4 23:25 Basic Metabolic Panel Sent. ks7 23:25 CBC with Diff Sent. ks7 06/12 00:23 Suzanne Palacios MD is Referral Physician. jr8 00:31 Patient did not have IV access during this emergency room visit. ks7 Administered Medications: 06/11 22:30 Drug: Zofran (Ondansetron) 4 mg Route: IVP; Site: left antecubital; ks7 06/12 00:07 Follow up: BP 112 / 62; Pulse 66 bpm; Resp 16 bpm; Temp 98 Temporal; Pulse Ox 99% ; ks7 Pain 3/10 Adult 06/11 22:31 Drug: TORadol - Ketorolac 15 mg Route: IVP; Site: left antecubital; ks7 06/12 00:07 Follow up: Temp 98 Temporal; Pulse Ox 99% ; Pain 3/10 Adult ks7 00:33 Not Given (patient left prior to admin): Potassium Chloride 40 mEq PO once ks7 Outcome: 00:23 Discharge ordered by . jr8 00:30 Discharged to home ambulatory. ks7 00:30 Condition: stable 00:30 Discharge instructions given to patient, Instructed on discharge instructions, Demonstrated understanding of instructions. 00:32 Patient left the ED. ks7 Signatures: Favian Turpin PA PA jr8 Harika Morgan 3 Rei Ray, RN RN rr5 Uzair Woodard 4 Helen Nolasco, RN RN ks7
--- NOTE | 2020-06-12 00:24 | EDPHYS ---
Physician Documentation [facility] Name: Hari Rincon Age: 19 yrs Sex: Male : 2000 Arrival Date: 06/11/2020 Time: 21:50 Bed 14 Private MD: ED Physician Gage Rosa HPI: 06/11 23:00 This 19 yrs old Male presents to ER via Ambulatory with complaints of Flank jr8 Pain. 23:00 The patient complains of pain in the left flank. The pain radiates to the abdomen. jr8 Onset: The symptoms/episode began/occurred acutely, 2 day(s) ago. Modifying factors: The symptoms are alleviated by nothing. the symptoms are aggravated by nothing. Associated signs and symptoms: The patient has no apparent associated signs or symptoms. Severity of pain: At its worst the pain was moderate in the emergency department the pain is unchanged. The patient has experienced similar episodes in the past, a few times. The patient has been recently seen by a physician:. This is patients third time to ED in last 2 days. Diagnosed with distal left ureteral stone. Given pain meds, Abx, and flomax. Came back today for continued worsening pain despite his meds being taken . Historical: - Allergies: 22:26 No Known Allergies; ks7 - Home Meds: 22:27 None [Active]; ks7 - Immunization history:: Adult Immunizations up to date. - Social history:: Smoking status: Patient denies any tobacco usage or history of. ROS: 23:00 Eyes: Negative for injury, pain, redness, and discharge, ENT: Negative for injury, jr8 pain, and discharge, Neck: Negative for injury, pain, and swelling, Cardiovascular: Negative for chest pain, palpitations, and edema, Respiratory: Negative for shortness of breath, cough, wheezing, and pleuritic chest pain, MS/Extremity: Negative for injury and deformity, Skin: Negative for injury, rash, and discoloration, Neuro: Negative for headache, weakness, numbness, tingling, and seizure. 23:00 Abdomen/GI: Positive for abdominal pain, nausea, Negative for vomiting, diarrhea, constipation, abdominal cramps, abdominal distension, anorexia, dysphagia, hematemesis, black/tarry stool, rectal pain, rectal bleeding, bowel incontinence, flatulence. 23:00 Back: Positive for flank pain, on the left. 23:00 : Positive for difficulty urinating. jr8 Exam: 23:00 Eyes: Pupils equal round and reactive to light, extra-ocular motions intact. Lids and jr8 lashes normal. Conjunctiva and sclera are non-icteric and not injected. Cornea within normal limits. Periorbital areas with no swelling, redness, or edema. ENT: Nares patent. No nasal discharge, no septal abnormalities noted. Tympanic membranes are normal and external auditory canals are clear. Oropharynx with no redness, swelling, or masses, exudates, or evidence of obstruction, uvula midline. Mucous membranes moist. Neck: Trachea midline, no thyromegaly or masses palpated, and no cervical lymphadenopathy. Supple, full range of motion without nuchal rigidity, or vertebral point tenderness. No Meningismus. Cardiovascular: Regular rate and rhythm with a normal S1 and S2. No gallops, murmurs, or rubs. Normal PMI, no JVD. No pulse deficits. Respiratory: Lungs have equal breath sounds bilaterally, clear to auscultation and percussion. No rales, rhonchi or wheezes noted. No increased work of breathing, no retractions or nasal flaring. Skin: Warm, dry with normal turgor. Normal color with no rashes, no lesions, and no evidence of cellulitis. MS/ Extremity: Pulses equal, no cyanosis. Neurovascular intact. Full, normal range of motion. Neuro: Awake and alert, GCS 15, oriented to person, place, time, and situation. Cranial nerves II-XII grossly intact. Motor strength 5/5 in all extremities. Sensory grossly intact. Cerebellar exam normal. Normal gait. 23:00 Abdomen/GI: Inspection: abdomen appears normal, Bowel sounds: active, all quadrants, Palpation: soft, in all quadrants, mild abdominal tenderness, in the anterior aspect of left lateral abdomen and left lower quadrant, mass, is not appreciated, rebound tenderness, is not appreciated, voluntary guarding, is elicited in all quadrants, involuntary guarding, is not appreciated, no appreciated organomegaly, Indicators: McBurney's point is not tender, Cool's sign is negative, Rovsing's sign is negative, Liver: tenderness, is not appreciated. 23:00 Back: pain, that is moderate, of the left flank, ROM is normal, normal spinal alignment noted, CVA tenderness, is absent. Vital Signs: 22:21 BP 137 / 91; Pulse 80; Resp 18; Temp 99.1(TE); Pulse Ox 99% on R/A; Weight 74.84 kg; ks7 Height 5 ft. 10 in. (177.80 cm); Pain 8/10; 22:29 Temp 99.2(TE); ks7 23:33 BP 113 / 86; Pulse 58; Resp 18; Pulse Ox 99% on R/A; Pain 8/10; ks7 06/12 00:07 BP 112 / 62; Pulse 60; Resp 16; Temp 98(TE); Pulse Ox 98% on R/A; Pain 3/10; ks7 00:07 BP 112 / 62; Pulse 66; Resp 16; Temp 98(TE); Pulse Ox 99% ; Pain 3/10; ks7 00:07 Temp 98(TE); Pulse Ox 99% ; Pain 3/10; ks7 00:30 BP 113 / 65; Pulse 65; Resp 16; Temp 98(TE); Pulse Ox 98% on R/A; Pain 3/10; ks7 06/11 22:21 Body Mass Index 23.67 (74.84 kg, 177.80 cm) ks7 MDM: 06/11 22:20 Patient medically screened. jr8 06/12 00:22 Data reviewed: vital signs, nurses notes, old medical records. Data interpreted: Pulse jr8 oximetry: on room air is 98 %. Interpretation: normal. Counseling: I had a detailed discussion with the patient and/or guardian regarding: the historical points, exam findings, and any diagnostic results supporting the discharge/admit diagnosis, lab results, radiology results, the need for outpatient follow up, a urologist, to return to the emergency department if symptoms worsen or persist or if there are any questions or concerns that arise at home. Response to treatment: the patient's symptoms have markedly improved after treatment. ED course: No changes in labs. Pain in control. Able to urinate and keep fluids down. VS stable. Will d/c home to f/u with urology. Knows to come back if worse . 06/11 22:26 Order name: Urine Dipstick--Ancillary (enter results); Complete Time: 22:47 tt3 06/11 22:51 Order name: Basic Metabolic Panel; Complete Time: 00:10 06/11 22:51 Order name: CBC with Diff; Complete Time: 00:04 06/11 22:51 Order name: IV Saline Lock; Complete Time: 23:25 06/11 22:51 Order name: Labs collected and sent; Complete Time: 23:25 Administered Medications: 06/11 22:30 Drug: Zofran (Ondansetron) 4 mg Route: IVP; Site: left antecubital; ks7 06/12 00:07 Follow up: BP 112 / 62; Pulse 66 bpm; Resp 16 bpm; Temp 98 Temporal; Pulse Ox 99% ; ks7 Pain 3/10 Adult 06/11 22:31 Drug: TORadol - Ketorolac 15 mg Route: IVP; Site: left antecubital; 06/12 00:07 Follow up: Temp 98 Temporal; Pulse Ox 99% ; Pain 02/03 Adult 00:33 Not Given (patient left prior to admin): Potassium Chloride 40 mEq PO once ks7 Disposition: 06:12 Co-signature as Attending Physician, Gage Rosa MD I agree with the assessment and roni plan of care. Disposition: 06/12/20 00:23 Discharged to Home. Impression: Hydronephrosis with renal and ureteral calculous obstruction. - Condition is Stable. - Discharge Instructions: Kidney Stones, Hydronephrosis. - Medication Reconciliation Form, Thank You Letter, Antibiotic Education, Prescription Opioid Use form. - Follow up: Suzanne Palacios MD; When: 2 - 3 days; Reason: Recheck today's complaints, Continuance of care, Re-evaluation by your physician. - Problem is new. - Symptoms have improved. Signatures: Dispatcher [employer] [facility] Gage Rosa MD MD cha Roszak, Josh, PA PA jr8 Helen Nolasco RN RN ks7 Corrections: (The following items were deleted from the chart) 00:32 00:23 06/12/2020 00:23 Discharged to Home. Impression: Hydronephrosis with renal and ks7 ureteral calculous obstruction. Condition is Stable. Forms are Medication Reconciliation Form, Thank You Letter, Antibiotic Education, Prescription Opioid Use. Follow up: Suzanne Palacios; When: 2 - 3 days; Reason: Recheck today's complaints, Continuance of care, Re-evaluation by your physician. Problem is new. Symptoms have improved. jr8
[2020-06-12 01:45] VITALS: TEMP 98; O2SAT 98
[2020-06-12 01:48] VITALS: BP 113/65
== END 2020-06-12 00:32 | disposition home or self-care (01) ==
LOC: ER 21:47
DX: N13.2 Hydronephrosis with renal and ureteral calculous obstruction (principal)
CPT/HCPCS: 85025; 80048; 36415; 81003; 96375; 96374; 99284; J2405

== ENCOUNTER 2021-07-12 15:34 | Emergency (ER) | payer BC ==
[2021-07-12 16:02] LABS: Absolute Lymphocytes (CBC) 2.1 K/uL (0.7-4.9); Basophils % 0.5 % (0-1.3); Hematocrit 43.1 % (39.6-49.0); MPV 9.1 fL (7.6-11.3); RBC Red Blood Cell Count 4.88 M/uL (4.33-5.43)
[2021-07-12 16:23] LABS: Protime INR 1.13
[2021-07-12 16:40] LABS: Albumin 4.9 g/dL (3.4-5.0); Bilirubin Direct 0.2 mg/dL (0-0.2); Bilirubin Total 0.8 mg/dL (0.2-1.0); Magnesium 1.7 mg/dL (1.8-2.4); Potassium 2.8 mmol/L (3.5-5.1); Protein, Total 8.5 g/dL (6.4-8.2); Troponin (Emerg Dept Use Only) 0.02 ng/mL (0.0-0.045)
[2021-07-12] MEDS ORDERED: NA CHLORIDE 0.9% 1,000 ML ONE ×2 (17:19→18:12)
[2021-07-12] MEDS ORDERED: KCL 20 MEQ/100 mL IVPB 20 MEQ/100 ML BAG IV ONE (17:19)
[2021-07-12] MEDS ORDERED: POTASSIUM CL SA 10 MEQ TAB PO ONE (19:05)
--- NOTE | 2021-07-12 20:28 | EDPHYS ---
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 Patient states this has happened previously which was initially attributed to a anxiety related condition. Patient currently denies chest pain or shortness of breath.. ROS: 15:43 Constitutional: Negative for fever, chills, and weight loss, Cardiovascular: Negative [facility] for chest pain, palpitations, and edema, Respiratory: Negative for shortness of breath, cough, wheezing, and pleuritic chest pain. 15:43 Neuro: Positive for tingling. 15:43 All other systems are negative. Exam: 15:43 Constitutional: This is a well developed, well nourished patient who is awake, alert, [facility] and in no acute distress. Head/Face: atraumatic. Eyes: EOMI, no conjunctival erythema appreciated ENT: Moist Mucus Membranes Neck: Trachea midline, Supple Chest/axilla: Normal chest wall appearance and motion. Cardiovascular: Regular rate and rhythm. No edema appreciated Respiratory: Normal respirations, no respiratory distress appreciated Abdomen/GI: Non distended, soft Back: Normal ROM Skin: General appearance color normal MS/ Extremity: Moves all extremities, no obvious deformities appreciated, no edema noted to the lower extremities Neuro: Awake and alert, normal gait Psych: Behavior is normal, Mood is normal, Patient is cooperative and pleasant Vital Signs: 16:50 Weight 79.38 kg; iw 17:13 BP 134 / 78; Pulse 66; Resp 16; Temp 97.6; Pulse Ox 100% on R/A; iw MDM: 16:00 Patient medically screened. [facility] 18:48 Data reviewed: vital signs, nurses notes. Counseling: I had a detailed discussion with [facility] the patient and/or guardian regarding: the historical points, exam findings, and any diagnostic results supporting the discharge/admit diagnosis, lab results, the need for outpatient follow up, to return to the emergency department if symptoms worsen or persist or if there are any questions or concerns that arise at home. ED course: Labs concerning for dehydration. Patient does not have any ST changes concerning for a STEMI. After rehydration the patient states he felt much better. I did want to repeat labs chemistries and troponin. Patient declined. Patient eloped from the ED prior to final disposition.. 07/12 15:43 Order name: Basic Metabolic Panel; Complete Time: 16:45 [facility] 07/12 15:43 Order name: CBC with Diff; Complete Time: 16:45 [facility] 07/12 15:43 Order name: LFT's; Complete Time: 16:45 [facility] 07/12 15:43 Order name: Magnesium; Complete Time: 16:45 [facility] 07/12 15:43 Order name: NT PRO-BNP; Complete Time: 16:45 [facility] 07/12 15:43 Order name: PT-INR; Complete Time: 16:45 [facility] 07/12 15:43 Order name: Troponin (emerg Dept Use Only); Complete Time: 16:45 [facility] 07/12 15:43 Order name: EKG; Complete Time: 15:43 [facility] 07/12 15:43 Order name: Cardiac monitoring [facility] 07/12 15:43 Order name: EKG - Nurse/Tech [facility] 07/12 15:45 Order name: CPK; Complete Time: 16:45 [facility] 07/12 15:43 Order name: IV Saline Lock; Complete Time: 17:26 [facility] 07/12 15:43 Order name: Labs collected and sent; Complete Time: 17:26 [facility] 07/12 15:43 Order name: O2 Per Protocol [facility] 07/12 15:43 Order name: O2 Sat Monitoring [facility] Administered Medications: 17:15 Drug: NS 0.9% (30 ml/kg) 30 ml/kg Route: IV; Rate: bolus; Site: right antecubital; iw 19:00 Follow up: IV Status: Completed infusion iw 17:15 Drug: Potassium Chloride 10 mEq Route: IV; Rate: calculated rate; Site: right iw antecubital; 19:00 Follow up: IV Status: Completed infusion iw 18:46 Drug: Potassium Chloride Liquid 40 mEq Route: PO; iw 19:00 Follow up: Response: No adverse reaction iw Disposition: 07/13 18:55 Co-signature as Attending Physician, Cammy Avila I agree with the assessment and plan sp3 of care. Disposition Summary: 07/12/21 20:27 Eloped Disposition: after being seen by provider noemi Reason: feeling better noemi Condition: Stable noemi Diagnosis - Hypokalemia jmm - Dehydration mae Followup: jmm - With: Private Physician - When: 2 - 3 days - Reason: Recheck today's complaints, Continuance of care, Re-evaluation by your physician Signatures: Dispatcher [employer] EDMS Brady Hicks PA PA jmm Williams, Irene, RN RN Cammy Duque sp3 Corrections: (The following items were deleted from the chart) 07/12 20:26 18:48 ED course: Labs concerning for dehydration. . noemi franklin
--- NOTE | 2021-07-12 20:28 | ER ---
Nurse's Notes [facility] Name: Hari Rincon Age: 20 yrs Sex: Male : 2000 Arrival Date: 07/12/2021 Time: 15:40 Bed External Waiting Private MD: Diagnosis: Hypokalemia;Dehydration Presentation: 07/12 15:40 Chief complaint: EMS states: possible dehydration and anxiety, was having cramping and iw hyperventilating, works outside, fluids given and symptoms improved. Initial Sepsis Screen: Does the patient meet any 2 criteria? No. Patient's initial sepsis screen is negative. Does the patient have a suspected source of infection? No. Patient's initial sepsis screen is negative. Risk Assessment: Do you want to hurt yourself or someone else? Patient reports no desire to harm self or others. Onset of symptoms was July 12, 2021. 15:40 Acuity: NANDO 3 iw Vital Signs: 16:50 Weight 79.38 kg; iw 17:13 BP 134 / 78; Pulse 66; Resp 16; Temp 97.6; Pulse Ox 100% on R/A; iw ED Course: 15:40 Patient arrived in ED. iw 15:41 Triage completed. iw 15:42 Brady Hicks PA is PHCP. [facility] 15:42 Cammy Avila is Attending Physician. [facility] 16:46 Rhina Kang, KAITLIN is Primary Nurse. iw 19:30 Primary Nurse role handed off by Rhina Kang, KAITLIN mw2 Administered Medications: 17:15 Drug: NS 0.9% (30 ml/kg) 30 ml/kg Route: IV; Rate: bolus; Site: right antecubital; iw 19:00 Follow up: IV Status: Completed infusion iw 17:15 Drug: Potassium Chloride 10 mEq Route: IV; Rate: calculated rate; Site: right iw antecubital; 19:00 Follow up: IV Status: Completed infusion iw 18:46 Drug: Potassium Chloride Liquid 40 mEq Route: PO; iw 19:00 Follow up: Response: No adverse reaction iw Outcome: 20:27 Patient left the ED. iw 20:27 Eloped from patient exam room, after seeing physician Signatures: Brady Hicks PA PA jmm Ballard, Brenda, RN RN Rhina Kang RN RN Ml Haywood mw2 Corrections: (The following items were deleted from the chart) 07/13 07:32 07:11 Patient left the ED. george gupta
[2021-07-13 07:15] VITALS: BP 134/78; TEMP 97.6; O2SAT 100
--- NOTE | 2021-07-13 16:56 | EKG ---
Test Date: 2021-07-12 Test Time: 18:54:36 Qm Nurse: LU MEASUREMENT RESULTS: Intervals: Rate: 81 ND: 128 QRSD: 100 QT: 346 QTc: 401 [place]: P: 52 ND: 128 QRS: 58 T: 57 INTERPRETIVE STATEMENTS: Normal sinus rhythm with sinus arrhythmia Nonspecific ST and T wave abnormality Abnormal ECG Compared to ECG 03/12/2013 10:50:40 T-wave abnormality no longer present ST (T wave) deviation still present Electronically Signed On 07-13-21 16:53:39 CDT by Rolando Lopez
== END 2021-07-13 07:11 | disposition left against medical advice (07) ==
LOC: ER 15:34
DX: E86.0 Dehydration (principal)
CPT/HCPCS: 96365; 96368; 93005; 85025; 80048; 36415; 83735; 82550; 85610; 80076; 84484; 83880; 99282; 96366; J3480; J7030 ×2

== ENCOUNTER 2021-08-25 21:02 | Emergency (ER) | payer BC ==
[2021-08-25] MEDS ORDERED: ALBUTEROL 2.5 MG/3 ML NEB SOL ONE (22:18)
[2021-08-25] MEDS ORDERED: METHYLPREDNISOLONE 125 MG INJ ONE (22:18)
[2021-08-25] MEDS ORDERED: IPRATROPIUM BROM 0.5MG/2.5ML ONE (22:19)
--- NOTE | 2021-08-25 22:26 | EDPHYS ---
Physician Documentation [facility] Name: Hari Rincon Age: 20 yrs Sex: Male : 2000 Arrival Date: 08/25/2021 Time: 21:03 Bed 11 Private MD: ED Physician Hardy Adorno HPI: 08/25 22:24 This 20 yrs old Male presents to ER via Ambulatory with complaints of jr8 Shortness Of Breath, Asthma Exacerbation. 22:24 The patient has shortness of breath at rest. Onset: The symptoms/episode began/occurred jr8 acutely, today. Duration: The symptoms are continuous. The patient's shortness of breath has no apparent modifying factors. Associated signs and symptoms: Pertinent positives: non-productive cough. Severity of symptoms: At their worst the symptoms were mild in the emergency department the symptoms are unchanged. The patient has experienced similar episodes in the past, a few times. The patient has not recently seen a physician. Patient stated that he has been out of his asthmatic medications. Started habits mild flareup today. Historical: - Allergies: 21:09 No Known Allergies; kg - Home Meds: 21:09 albuterol sulfate Inhl [Active]; kg - PMHx: 21:09 Asthma; kg - PSHx: 21:09 None; kg - Immunization history:: Adult Immunizations not up to date, Client reports having NOT received the Covid vaccine. - Social history:: Smoking status: Reported history of juuling and/or vaping. Patient uses alcohol, but reports only rare drinking. ROS: 22:24 Eyes: Negative for injury, pain, redness, and discharge, ENT: Negative for injury, jr8 pain, and discharge, Neck: Negative for injury, pain, and swelling, Cardiovascular: Negative for chest pain, palpitations, and edema, Abdomen/GI: Negative for abdominal pain, nausea, vomiting, diarrhea, and constipation, Back: Negative for injury and pain, MS/Extremity: Negative for injury and deformity, Skin: Negative for injury, rash, and discoloration, Neuro: Negative for headache, weakness, numbness, tingling, and seizure. 22:24 Respiratory: Positive for cough, shortness of breath, wheezing. Exam: 22:24 Constitutional: This is a well developed, well nourished patient who is awake, alert, jr8 and in no acute distress. Cardiovascular: Regular rate and rhythm with a normal S1 and S2. No gallops, murmurs, or rubs. Normal PMI, no JVD. No pulse deficits. Abdomen/GI: Soft, non-tender, with normal bowel sounds. No distension or tympany. No guarding or rebound. No evidence of tenderness throughout. Back: No spinal tenderness. No costovertebral tenderness. Full range of motion. Skin: Warm, dry with normal turgor. Normal color with no rashes, no lesions, and no evidence of cellulitis. MS/ Extremity: Pulses equal, no cyanosis. Neurovascular intact. Full, normal range of motion. Neuro: Awake and alert, GCS 15, oriented to person, place, time, and situation. Cranial nerves II-XII grossly intact. Motor strength 5/5 in all extremities. Sensory grossly intact. Cerebellar exam normal. Normal gait. 22:24 Respiratory: the patient does not display signs of respiratory distress, Respirations: normal, Breath sounds: wheezing: expiratory that is mild, is heard diffusely. Vital Signs: 20:00 BP 137 / 90; Pulse 86; Resp 18; Pulse Ox 100% ; cc4 21:06 Pulse 79; Resp 20; Temp 97.7(TE); Pulse Ox 100% on R/A; Weight 77.11 kg (R); Height 5 kg ft. 10 in. (177.80 cm); Pain 0/10; 22:45 BP 128 / 74; Pulse 98; Resp 16; Temp 96.1; Pulse Ox 97% on R/A; cc4 21:06 Body Mass Index 24.39 (77.11 kg, 177.80 cm) kg MDM: 21:50 Patient medically screened. jr8 22:24 Data reviewed: vital signs, nurses notes, and as a result, I will discharge patient. jr8 Data interpreted: Pulse oximetry: on room air is 100 %. Interpretation: normal. Counseling: I had a detailed discussion with the patient and/or guardian regarding: the historical points, exam findings, and any diagnostic results supporting the discharge/admit diagnosis, the need for outpatient follow up, a family practitioner, to return to the emergency department if symptoms worsen or persist or if there are any questions or concerns that arise at home. ED course: Patient feels markedly better. No wheezing bilaterally upon reexamination. We will send him home on steroids, albuterol ampules, and new inhaler.. Administered Medications: 22:00 Drug: SOLU-Medrol (methylPREDNISolone sodium succinate) 125 mg Route: IM; Site: left cc4 gluteus; 22:45 Follow up: Response: No adverse reaction; Marked relief of symptoms cc4 22:01 Drug: Albuterol - atroVENT (ipratropium) (3:1) (2.5 mg - 0.5 mg) 3 ml Route: Nebulizer; cc4 22:45 Follow up: Response: No adverse reaction; Marked relief of symptoms cc4 Disposition: 08/26 00:24 Co-signature as Attending Physician, Hardy Adorno MD. pkl Disposition Summary: 08/25/21 22:25 Discharge Ordered Location: Home jr8 Problem: new jr8 Symptoms: have improved jr8 Condition: Stable jr8 Diagnosis - Mild intermittent asthma with (acute) exacerbation jr8 Followup: jr8 - With: Private Physician - When: 2 - 3 days - Reason: Recheck today's complaints, Continuance of care, Re-evaluation by your physician Discharge Instructions: - Discharge Summary Sheet jr8 - Asthma, Adult jr8 Forms: - Medication Reconciliation Form jr8 - Thank You Letter jr8 - Antibiotic Education jr8 - Prescription Opioid Use jr8 Prescriptions: - albuterol sulfate 90 mcg/actuation Inhalation HFA aerosol inhaler - inhale 2 puff by INHALATION route every 4 hours; 1 Inhaler; Refills: 0, Product jr8 Selection Permitted - Prednisone 20 mg Oral Tablet - take 1 tablet by ORAL route once daily for 5 days; 5 tablet; Refills: 0, jr8 Product Selection Permitted - Albuterol Sulfate 2.5 mg /3 mL (0.083 %) Inhalation Solution for Nebulization - inhale 1 unit by NEBULIZATION route every 8 hours As needed; 1 box; Refills: 0, jr8 Product Selection Permitted Signatures: Hardy Adorno MD MD pkFavian Olson PA PA jr8 Elida Okeefe RN RN kg Kelly Gaytan RN RN cc4 Corrections: (The following items were deleted from the chart) 08/25 21:09 21:09 PSHx: Unable to Obtain; kg kg
--- NOTE | 2021-08-25 22:26 | ER ---
Nurse's Notes [facility] Name: Hari Ricnon Age: 20 yrs Sex: Male : 2000 Arrival Date: 08/25/2021 Time: 21:03 Bed 11 Private MD: Diagnosis: Mild intermittent asthma with (acute) exacerbation Presentation: 08/25 21:06 Chief complaint: Patient states: Pt stated, " I woke up from a nap and was really SOB kg at 20:30. I have allergy induced asthma but I'm not sure what would cause this. I have an inhaler but I'm out. Coronavirus screen: Vaccine status: Patient reports being unvaccinated. Client denies travel out of the [place] in the last 14 days. shortness of breath, Client presents with at least one sign or symptom that may indicate coronavirus-19. Standard/surgical mask placed on the client. Provider contacted for isolation considerations. Ebola Screen: Patient negative for fever greater than or equal to 101.5 degrees Fahrenheit, and additional compatible Ebola Virus Disease symptoms Patient denies exposure to infectious person. Patient denies travel to an Ebola-affected area in the 21 days before illness onset. Initial Sepsis Screen: Does the patient meet any 2 criteria? No. Patient's initial sepsis screen is negative. Does the patient have a suspected source of infection? No. Patient's initial sepsis screen is negative. Risk Assessment: Do you want to hurt yourself or someone else? Patient reports no desire to harm self or others. Onset of symptoms was August 25, 2021 at 20:30. 21:06 Method Of Arrival: Ambulatory kg 21:06 Acuity: NANDO 3 kg Triage Assessment: 21:09 General: Appears distressed, Behavior is calm, cooperative, appropriate for age, quiet. kg Pain: Denies pain. Respiratory: Reports shortness of breath at rest on exertion since 20:30 air hunger since 20:30 Onset: The symptoms/episode began/occurred suddenly, the patient has moderate shortness of breath. Historical: - Allergies: 21:09 No Known Allergies; kg - Home Meds: 21:09 albuterol sulfate Inhl [Active]; kg - PMHx: 21:09 Asthma; kg - PSHx: 21:09 None; kg - Immunization history:: Adult Immunizations not up to date, Client reports having NOT received the Covid vaccine. - Social history:: Smoking status: Reported history of juuling and/or vaping. Patient uses alcohol, but reports only rare drinking. Screenin:51 Abuse screen: Denies threats or abuse. Nutritional screening: No deficits noted. cc4 Tuberculosis screening: No symptoms or risk factors identified. Fall Risk None identified. Assessment: 21:51 Respiratory: Airway is patent slight inspiratory wheeze lung left upper/lower lung cc4 field; right lung field CTA. 21:51 Cardiovascular: Rhythm is sinus rhythm. cc4 22:45 Respiratory: Respiratory effort is even, unlabored, relaxed, Breath sounds are clear cc4 bilaterally. Vital Signs: 20:00 BP 137 / 90; Pulse 86; Resp 18; Pulse Ox 100% ; cc4 21:06 Pulse 79; Resp 20; Temp 97.7(TE); Pulse Ox 100% on R/A; Weight 77.11 kg (R); Height 5 kg ft. 10 in. (177.80 cm); Pain 0/10; 22:45 BP 128 / 74; Pulse 98; Resp 16; Temp 96.1; Pulse Ox 97% on R/A; cc4 21:06 Body Mass Index 24.39 (77.11 kg, 177.80 cm) kg ED Course: 21:03 Patient arrived in ED. do 21:09 Triage completed. kg 21:09 Arm band placed on right wrist. kg 21:36 Kelly Gaytan, KAITLIN is Primary Nurse. cc4 21:50 Favian Turpin PA is PHCP. jr8 21:50 Hardy Adorno MD is Attending Physician. jr8 21:51 No provider procedures requiring assistance completed. cc4 22:45 Patient has correct armband on for positive identification. Call light in reach. cc4 22:45 Patient did not have IV access during this emergency room visit. cc4 Administered Medications: 22:00 Drug: SOLU-Medrol (methylPREDNISolone sodium succinate) 125 mg Route: IM; Site: left cc4 gluteus; 22:45 Follow up: Response: No adverse reaction; Marked relief of symptoms cc4 22:01 Drug: Albuterol - atroVENT (ipratropium) (3:1) (2.5 mg - 0.5 mg) 3 ml Route: Nebulizer; cc4 22:45 Follow up: Response: No adverse reaction; Marked relief of symptoms cc4 Outcome: 22:25 Discharge ordered by MD. steel 22:45 Condition: improved cc4 22:45 Discharged to home ambulatory. cc4 22:45 Condition: improved 22:45 Discharge instructions given to patient, Instructed on discharge instructions, follow up and referral plans. medication usage, Demonstrated understanding of instructions, follow-up care, medications. 22:53 Patient left the ED. cc4 Signatures: Favian Turpin PA PA jr8 [place], Danielle do Graham, Kristen RN RN kg Kelly Gaytan RN RN cc4 Corrections: (The following items were deleted from the chart) 21:09 21:09 PSHx: Unable to Obtain; kg kg
[2021-08-25 23:15] VITALS: BP 128/74; TEMP 96.1; O2SAT 97
== END 2021-08-25 22:53 | disposition home or self-care (01) ==
LOC: ER 21:02
DX: J45.21 Mild intermittent asthma with (acute) exacerbation (principal)
CPT/HCPCS: 96372; 99284; J2930

== ENCOUNTER 2021-10-06 12:19 | Emergency (ER) | payer BC ==
[2021-10-06] MEDS ORDERED: LORazepam 2 MG/ML VIAL ONE (12:37)
[2021-10-06 12:53] LABS: Absolute Lymphocytes (CBC) 1.9 K/uL (0.7-4.9); Basophils % 0.5 % (0-1.3); Hematocrit 44.6 % (39.6-49.0); Lymphocytes % 14.7 % (15.3-44.8); MPV 9.3 fL (7.6-11.3); RBC Red Blood Cell Count 5.06 M/uL (4.33-5.43)
[2021-10-06 13:01] LABS: Potassium 3.1 mmol/L (3.5-5.1); Sodium Level 144 mmol/L (136-145)
[2021-10-06 13:08] LABS: BUN Blood Urea Nitrogen 10 mg/dL (7-18); Bicarbonate 19 mmol/L (21-32); Creatine Phosphokinase 96 U/L (39-308); Glucose Level 88 mg/dL (74-106); Magnesium 1.5 mg/dL (1.8-2.4)
[2021-10-06] MEDS ORDERED: Magnesium Sulfate 2gm IVPB 2 G/50 ML BAG IV ONE (13:27)
[2021-10-06] MEDS ORDERED: POTASSIUM CL SA 10 MEQ TAB PO ONE (13:27)
[2021-10-06] MEDS ORDERED: NA CHLORIDE 0.9% 1,000 ML ONE (13:27)
--- NOTE | 2021-10-06 14:28 | EDPHYS ---
Physician Documentation [facility] Name: Hari Rincon Age: 21 yrs Sex: Male : 2000 Arrival Date: 10/06/2021 Time: 12:22 Bed 24 Private MD: ED Physician Jared Morgan HPI: 10/06 13:17 This 21 yrs old Male presents to ER via EMS with complaints of Dizziness. jr 13:17 This is a 21-year-old male patient with a history of anxiety that presented to the [facility] emergency room after becoming dizzy and vomiting at work. Patient stated that he had just finished lunch and was going back to work when he became acutely dizzy and then had vomited. Patient stated since then he has had anxiety and feels increased shortness of breath.. Historical: - Allergies: 12:29 No Known Allergies; ss - Home Meds: 12:29 None [Active]; ss - PMHx: 12:29 Anxiety; ss - PSHx: 12:29 None; ss - Immunization history:: Client reports having NOT received the Covid vaccine. - Social history:: Smoking status: Patient denies any tobacco usage or history of. Patient/guardian denies using alcohol, street drugs. ROS: 13:17 Eyes: Negative for injury, pain, redness, and discharge, ENT: Negative for injury, jr8 pain, and discharge, Neck: Negative for injury, pain, and swelling, Cardiovascular: Negative for chest pain, palpitations, and edema, Back: Negative for injury and pain, MS/Extremity: Negative for injury and deformity, Skin: Negative for injury, rash, and discoloration. 13:17 Respiratory: Positive for shortness of breath. 13:17 Abdomen/GI: Positive for nausea and vomiting, Negative for abdominal pain, diarrhea. 13:17 Neuro: Positive for dizziness. 13:17 Psych: Positive for anxiety. Exam: 13:17 Eyes: Pupils equal round and reactive to light, extra-ocular motions intact. Lids and jr8 lashes normal. Conjunctiva and sclera are non-icteric and not injected. Cornea within normal limits. Periorbital areas with no swelling, redness, or edema. ENT: Nares patent. No nasal discharge, no septal abnormalities noted. Tympanic membranes are normal and external auditory canals are clear. Oropharynx with no redness, swelling, or masses, exudates, or evidence of obstruction, uvula midline. Mucous membranes moist. Neck: Trachea midline, no thyromegaly or masses palpated, and no cervical lymphadenopathy. Supple, full range of motion without nuchal rigidity, or vertebral point tenderness. No Meningismus. Abdomen/GI: Soft, non-tender, with normal bowel sounds. No distension or tympany. No guarding or rebound. No evidence of tenderness throughout. Back: No spinal tenderness. No costovertebral tenderness. Full range of motion. Skin: Warm, dry with normal turgor. Normal color with no rashes, no lesions, and no evidence of cellulitis. MS/ Extremity: Pulses equal, no cyanosis. Neurovascular intact. Full, normal range of motion. Neuro: Awake and alert, GCS 15, oriented to person, place, time, and situation. Cranial nerves II-XII grossly intact. Motor strength 5/5 in all extremities. Sensory grossly intact. Cerebellar exam normal. Normal gait. 13:17 Cardiovascular: Regular rate and rhythm with a normal S1 and S2. No gallops, murmurs, or rubs. Normal PMI, no JVD. No pulse deficits. 13:17 Constitutional: The patient appears alert, awake, anxious. 13:17 Respiratory: the patient does not display signs of respiratory distress, Respirations: tachypnea, that is mild, Breath sounds: are clear throughout, no bronchial sounds, no decreased breath sounds, no rales, rhonchi, no stridor, no wheezing. Vital Signs: 12:25 BP 145 / 104; Pulse 100; Resp 24; Temp 98.4(O); Pulse Ox 100% on R/A; Weight 72.57 kg; ss Height 5 ft. 10 in. (177.80 cm); Pain 0/10; 12:40 BP 143 / 101; Pulse 92; Resp 21; Pulse Ox 94% on R/A; ld1 13:30 BP 148 / 97; Pulse 91; Resp 26; Pulse Ox 99% on R/A; ld1 14:15 BP 154 / 89; Pulse 91; Resp 17; Pulse Ox 100% on R/A; ld1 12:25 Body Mass Index 22.96 (72.57 kg, 177.80 cm) MDM: 12:28 Patient medically screened. jr8 13:17 Data reviewed: vital signs, nurses notes, lab test result(s). Data interpreted: Pulse jr8 oximetry: on room air is 95 %. Interpretation: normal. Counseling: I had a detailed discussion with the patient and/or guardian regarding: the historical points, exam findings, and any diagnostic results supporting the discharge/admit diagnosis, lab results, the need for outpatient follow up, a family practitioner, to return to the emergency department if symptoms worsen or persist or if there are any questions or concerns that arise at home. 14:26 ED course: Patient feeling markedly better. Vital signs stable at this time. We will jr8 send him home with close return precautions. Counseled him on fluid hydration electrolyte replacement. Reviewed worsening point time to come back. Patient good with all this at this time and will follow up otherwise.. 10/06 12:33 Order name: CBC with Diff; Complete Time: 13:8 10/06 12:33 Order name: Basic Metabolic Panel; Complete Time: 13: 8 10/06 12:33 Order name: Magnesium; Complete Time: 13:8 10/06 12:33 Order name: CPK; Complete Time: 13:8 10/06 12:33 Order name: IV; Complete Time: 12:35 jr8 Administered Medications: 12:44 Drug: Ativan (LORazepam) 0.5 mg Route: IVP; Site: right antecubital; ld1 12:44 Follow up: Response: No adverse reaction ld1 13:42 Drug: NS 0.9% 1000 ml Route: IV; Rate: 1000 ml; Site: right antecubital; ld1 13:42 Drug: Magnesium Sulfate 2 grams Route: IVPB; Infused Over: 2 hrs; Site: right ld1 antecubital; 13:42 Drug: Potassium Chloride 40 mEq Route: PO; ld1 13:42 Follow up: Response: No adverse reaction ld1 Disposition Summary: 10/06/21 14:27 Discharge Ordered Location: Home [facility] Problem: new jr8 Symptoms: have improved jr8 Condition: Stable jr8 Diagnosis - Dehydration jr8 - Hypomagnesemia jr8 - Hypokalemia jr8 Followup: jr8 - With: Private Physician - When: 1 - 2 days - Reason: Recheck today's complaints, Continuance of care, Re-evaluation by your physician Discharge Instructions: - Discharge Summary Sheet jr8 - Dehydration, Adult jr8 - Rehydration, Adult jr8 Forms: - Medication Reconciliation Form jr8 - Thank You Letter jr8 - Work release form ss - Antibiotic Education jr8 - Prescription Opioid Use jr8 Addendum: 10/11/2021 05:31 Co-signature as Attending Physician, Jared stevens a2 Signatures: Dispatcher [employer] Johanna Patterson RN RN ss Favian Turpin PA PA jr8 Jared Morgan MD MD ma2 Ale Donnelly RN RN ld1 Corrections: (The following items were deleted from the chart) 10/06 12:30 12:29 PMHx: Asthma; ss ss
--- NOTE | 2021-10-06 14:28 | ER ---
Nurse's Notes [facility] Name: Hari Rincon Age: 21 yrs Sex: Male : 2000 Arrival Date: 10/06/2021 Time: 12:22 Bed 24 Private MD: Diagnosis: Dehydration;Hypomagnesemia;Hypokalemia Presentation: 10/06 12:25 Chief complaint: EMS states: "He was found subconscious on the ground in the parking ss lot at work. Last time this happened he was overheated and began to cramp up. It wasn't that hot outside today and his oral temperature was 98.4. Also c/o cramping to hands and feet." Pt states, "I just started tingling all over and was really dizzy.". Coronavirus screen: Client denies travel out of the [place] in the last 14 days. Ebola Screen: Patient denies exposure to infectious person. Patient denies travel to an Ebola-affected area in the 21 days before illness onset. Initial Sepsis Screen: Does the patient meet any 2 criteria? No. Patient's initial sepsis screen is negative. Does the patient have a suspected source of infection? No. Patient's initial sepsis screen is negative. Risk Assessment: Do you want to hurt yourself or someone else? Patient reports no desire to harm self or others. Onset of symptoms was October 06, 2021. 12:25 Method Of Arrival: EMS: [facility] 12:25 Acuity: NANDO 3 ss Historical: - Allergies: 12:29 No Known Allergies; ss - Home Meds: 12:29 None [Active]; ss - PMHx: 12:29 Anxiety; ss - PSHx: 12:29 None; ss - Immunization history:: Client reports having NOT received the Covid vaccine. - Social history:: Smoking status: Patient denies any tobacco usage or history of. Patient/guardian denies using alcohol, street drugs. Screenin:02 Abuse screen: Denies threats or abuse. Denies injuries from another. Nutritional ld1 screening: No deficits noted. Tuberculosis screening: No symptoms or risk factors identified. Fall Risk None identified. Assessment: 12:40 General: Appears in no apparent distress. uncomfortable, Behavior is cooperative, ld1 appropriate for age, anxious. 12:40 Pain: Denies pain. Neuro: Level of Consciousness is awake, alert, obeys commands, ld1 Oriented to person, place, time, situation, Appropriate for age. Cardiovascular: Capillary refill < 3 seconds Patient's skin is warm and dry. Rhythm is regular. Respiratory: Airway is patent Respiratory effort is even, unlabored, Respiratory pattern is regular, symmetrical. GI: Abdomen is flat, non-distended. : No signs and/or symptoms were reported regarding the genitourinary system. EENT: No signs and/or symptoms were reported regarding the EENT system. Derm: No signs and/or symptoms reported regarding the dermatologic system. Musculoskeletal: No signs and/or symptoms reported regarding the musculoskeletal system. 13:45 Reassessment: Patient appears in no apparent distress at this time. Patient and/or ld1 family updated on plan of care and expected duration. Pain level reassessed. Patient is alert, oriented x 3, equal unlabored respirations, skin warm/dry/pink. Laying in bed resting. Denies concerns at this time. RR 25. Vital Signs: 12:25 BP 145 / 104; Pulse 100; Resp 24; Temp 98.4(O); Pulse Ox 100% on R/A; Weight 72.57 kg; Height 5 ft. 10 in. (177.80 cm); Pain 0/10; 12:40 BP 143 / 101; Pulse 92; Resp 21; Pulse Ox 94% on R/A; ld1 13:30 BP 148 / 97; Pulse 91; Resp 26; Pulse Ox 99% on R/A; ld1 14:15 BP 154 / 89; Pulse 91; Resp 17; Pulse Ox 100% on R/A; ld1 12:25 Body Mass Index 22.96 (72.57 kg, 177.80 cm) ED Course: 12:22 Patient arrived in ED. ds1 12:28 Favian Turpin PA is PHCP. jr8 12:28 Jared Morgan MD is Attending Physician. jr8 12:29 Triage completed. ss 12:29 Arm band placed on right wrist. ss 13:00 Ale Donnelly, KAITLIN is Primary Nurse. ld1 13:02 Patient has correct armband on for positive identification. Bed in low position. Call ld1 light in reach. Side rails up X2. strategy consultant on. Pulse ox on. NIBP on. Door closed. Noise minimized. Warm blanket given. 13:02 No provider procedures requiring assistance completed. Maintain EMS IV. Dressing ld1 intact. Good blood return noted. Site clean \\T\\ dry. Gauge \\T\\ site: 20G RAC. 14:41 IV discontinued, intact, bleeding controlled, No redness/swelling at site. ld1 Administered Medications: 12:44 Drug: Ativan (LORazepam) 0.5 mg Route: IVP; Site: right antecubital; ld1 12:44 Follow up: Response: No adverse reaction ld1 13:42 Drug: NS 0.9% 1000 ml Route: IV; Rate: 1000 ml; Site: right antecubital; ld1 13:42 Drug: Magnesium Sulfate 2 grams Route: IVPB; Infused Over: 2 hrs; Site: right ld1 antecubital; 13:42 Drug: Potassium Chloride 40 mEq Route: PO; ld1 13:42 Follow up: Response: No adverse reaction ld1 Outcome: 14:27 Discharge ordered by MD. steel 14:41 Discharged to home ambulatory, with family. ld1 14:41 Condition: stable 14:41 Discharge instructions given to patient, family, Instructed on discharge instructions, follow up and referral plans. Demonstrated understanding of instructions, follow-up care. 14:41 Patient left the ED. ld1 Signatures: Belem Hernandez1 Johanna Duarte RN RN Favian Turpin PA PA jr8 Ale Donnelly RN RN ld1 Corrections: (The following items were deleted from the chart) 12:30 12:29 PMHx: Asthma; ss ss
[2021-10-06 15:10] VITALS: TEMP 98.4
[2021-10-06 15:14] VITALS: BP 154/89; O2SAT 100
== END 2021-10-06 14:41 | disposition home or self-care (01) ==
LOC: ER 12:19
DX: E86.0 Dehydration (principal); E87.6 Hypokalemia; E83.42 Hypomagnesemia; F41.9 Anxiety disorder, unspecified
CPT/HCPCS: 85025; 80048; 36415; 83735; 82550; 96375; 96374; 99284; J3475; J7030

== ENCOUNTER 2022-07-05 15:49 | Emergency (ER) | payer BC ==
[2022-07-05] MEDS ORDERED: ONDANSETRON 4 MG/2 ML VIAL ONE (16:24)
[2022-07-05] MEDS ORDERED: MORPHINE 4 MG/ML SYR ONE ×2 (16:24→17:34)
[2022-07-05] MEDS ORDERED: NA CHLORIDE 0.9% 1,000 ML ONE (16:25)
[2022-07-05 16:29] LABS: Absolute Lymphocytes (CBC) 3.6 K/uL (0.7-4.9); Hematocrit 49.1 % (39.6-49.0); Lymphocytes % 29.5 % (15.3-44.8); MCV 87.2 fL (80-100); MPV 9.5 fL (7.6-11.3); RBC Red Blood Cell Count 5.63 M/uL (4.33-5.43)
[2022-07-05 16:41] LABS: Albumin 4.9 g/dL (3.4-5.0); Bilirubin Total 0.6 mg/dL (0.2-1.0); Potassium 3.3 mmol/L (3.5-5.1); Protein, Total 8.3 g/dL (6.4-8.2)
--- NOTE | 2022-07-05 16:53 | RAD REPORT ---
EXAM DESCRIPTION: CT - Stone Protocol - 07/05/2022 4:44 pm CLINICAL HISTORY: Flank pain. flank pain COMPARISON: Stone Protocol dated 06/10/2020 TECHNIQUE: Axial images were obtained without oral or IV contrast. Lack of contrast limits solid org an and vascular assessment. The [id number] spans the entirety of the system partially obscuring uppermost abdomen and lung bases. Coronal reformatted images were obtained and reviewed. All CT scans are performed using dose optimization technique as appropriate and may include automated exposure control or mA/KV adjustment according to patient size. FINDINGS: The lower lung gomez are clear. Imaged portions of the liver and spleen show no suspicious findings on non-contrast imaging. The panc reas and adrenal glands are normal. No pathologic lymphadenopathy in the abdomen or pelvis. 1-2 mm calculus is present left UVJ with mild left hydronephrosis. Additional punctate calculi are se en in the calices of both kidneys. No bowel obstruction, free air, free fluid or abscess. Normal appendix noted. No significant bony abnormality. IMPRESSION: Quite small punctate stone left UVJ with mild left hydronephrosis.
[2022-07-05] MEDS ORDERED: MAGNESIUM SULFATE 1 gm IVPB 1 GM/100 ML BAG IV ONE (17:11)
[2022-07-05] MEDS ORDERED: KETOROLAC 30 MG/ML INJ ONE (17:11)
[2022-07-05] MEDS ORDERED: TAMSULOSIN 0.4 MG SR CAP ONE (17:11)
[2022-07-05 18:02] LABS: Urine Blood 3+ (Negative); Urine Glucose Negative (Negative); Urine Protein Negative (Negative); Urine pH 6.5 (5.0-7.0)
[2022-07-05] MEDS ORDERED: HYDROMORPHONE HCL 1 MG/ML INJ ONE (18:13)
[2022-07-05] MEDS ORDERED: POTASSIUM CL SA 10 MEQ TAB PO ONE (18:19)
--- NOTE | 2022-07-05 18:57 | EDPHYS ---
Physician Documentation [facility] Name: Hari Rincon Age: 21 yrs Sex: Male : 2000 Arrival Date: 07/05/2022 Time: 15:49 Bed 9 Private MD: EVA Physician Gage Rosa HPI: 07/05 20:25 This 21 yrs old Male presents to ER via Wheelchair with complaints of Possible Kidney kb Stone. 20:25 The patient complains of pain in the left flank. The pain radiates to the left lower kb quadrant. Onset: The symptoms/episode began/occurred this morning. Modifying factors: The symptoms are alleviated by nothing. the symptoms are aggravated by nothing. Associated signs and symptoms: The patient has no apparent associated signs or symptoms. Severity of pain: At its worst the pain was moderate severe in the emergency department the pain is unchanged. The patient has not experienced similar symptoms in the past. The patient has not recently seen a physician. Historical: - Allergies: 16:00 No Known Allergies; iw - Home Meds: 16:00 None [Active]; iw - PMHx: 16:00 Anxiety; Kidney stone; iw - PSHx: 16:00 Lithotripsy; iw - Immunization history:: Adult Immunizations up to date. - Social history:: Smoking status: unknown. ROS: 20:21 Constitutional: Negative for fever, chills, and weight loss. kb 20:21 Back: Positive for flank pain, on the left. 20:21 All other systems are negative. kb Exam: 20:25 Constitutional: This is a well developed, well nourished patient who is awake, alert, kb and in no acute distress. Head/Face: Normocephalic, atraumatic. ENT: Moist Mucous membranes Cardiovascular: Regular rate and rhythm with a normal S1 and S2. No gallops, murmurs, or rubs. No pulse deficits. Respiratory: Respirations even and unlabored. No increased work of breathing. Talking in full sentences Skin: Warm, dry with normal turgor. Normal color. MS/ Extremity: Pulses equal, no cyanosis. Neurovascular intact. Full, normal range of motion. Neuro: Awake and alert, GCS 15, oriented to person, place, time, and situation. Moves all extremities. Normal gait. Psych: Awake, alert, with orientation to person, place and time. Behavior, mood, and affect are within normal limits. 20:25 Abdomen/GI: Inspection: abdomen appears normal, Bowel sounds: normal, in all quadrants, Palpation: soft, in all quadrants, mild abdominal tenderness, in the left lower quadrant. 20:25 Back: CVA tenderness, that is moderate, is noted on the left. Vital Signs: 15:58 BP 134 / 85; Pulse 89; Resp 18; Temp 97.9; Pulse Ox 100% on R/A; iw 17:34 Pulse 81; Resp 18; Pulse Ox 100% on R/A; Pain 9/10; ss MDM: 16:00 Patient medically screened. kb 20:23 Data reviewed: vital signs, nurses notes. Data interpreted: Pulse oximetry: on room air kb is 100 %. Interpretation: normal. Counseling: I had a detailed discussion with the patient and/or guardian regarding: the historical points, exam findings, and any diagnostic results supporting the discharge/admit diagnosis, lab results, radiology results, the need for outpatient follow up, a urologist, to return to the emergency department if symptoms worsen or persist or if there are any questions or concerns that arise at home. ED course: Pain controlled prior to discharge. Mother states they will follow up with urology, will call tomorrow to make an appt. . 07/05 16:09 Order name: CBC with Diff; Complete Time: 16:31 kb 07/05 16:09 Order name: CMP; Complete Time: 16:55 kb 07/05 16:00 Order name: CT Stone Protocol; Complete Time: 16:55 kb 07/05 18:03 Order name: Urine Dipstick-Ancillary; Complete Time: 18:03 EDMS 07/05 16:00 Order name: Urine Dipstick-Ancillary (obtain specimen); Complete Time: 18:01 kb 07/05 16:09 Order name: IV Saline Lock; Complete Time: 16:14 kb 07/05 16:09 Order name: Labs collected and sent; Complete Time: 16:14 kb Administered Medications: 16:17 Drug: NS 0.9% 1000 ml Route: IV; Rate: 1 bolus; Site: left antecubital; jh5 16:17 Drug: Zofran (Ondansetron) 4 mg Route: IVP; Site: left antecubital; 5 17:13 Follow up: Response: No adverse reaction ss 16:17 Drug: morphine 4 mg Route: IVP; Infused Over: 4 mins; Site: left antecubital; 5 17:33 Follow up: Response: No adverse reaction; minimal relief of pain for short period of ss time. 17:10 Drug: Ketorolac 15 mg Route: IVP; Site: left antecubital; 5 17:34 Follow up: Response: No adverse reaction ss 17:10 Drug: Magnesium Sulfate 1 grams Route: IVPB; Infused Over: 1 hrs; Site: left [facility] antecubital; 18:10 Follow up: IV Status: Completed infusion; IV Intake: 100ml ss 17:10 Drug: Flomax (tamsulosin) 0.4 mg Route: PO; 5 17:34 Follow up: Response: No adverse reaction ss 17:33 Drug: morphine 4 mg {Note: RASS 0.} Route: IVP; Infused Over: 4 mins; Site: left antecubital; 18:09 Follow up: Response: No adverse reaction; RASS: Restless (+1) ss 18:09 Drug: Dilaudid (HYDROmorphone) 1 mg {Note: RASS +1.} Route: IVP; Site: left antecubital; 18:18 Follow up: Response: No adverse reaction; Marked relief of symptoms; Pain is decreased; RASS: Alert and Calm (0) 18:18 Drug: Potassium Chloride 20 mEq Route: PO; ss 19:07 Follow up: Response: No adverse reaction; Medication administered at discharge. ss Disposition Summary: 07/05/22 18:56 Discharge Ordered Location: Home kb Condition: Stable kb Diagnosis - Calculus of kidney with calculus of ureter kb Followup: kb - With: Emergency Department - When: As needed - Reason: Worsening of condition Followup: kb - With: Private Physician - When: 2 - 3 days - Reason: Recheck today's complaints, Continuance of care, Re-evaluation by your physician Followup: kb - With: Harley Chun MD - When: 2 - 3 days - Reason: Recheck today's complaints Discharge Instructions: - Discharge Summary Sheet kb - Kidney Stones, [id number] kb - Dietary Guidelines to Help Prevent Kidney Stones kb Forms: - Medication Reconciliation Form kb - Thank You Letter kb - Antibiotic Education kb - Prescription Opioid Use kb Prescriptions: - Zofran 4 mg Oral Tablet - take 1 tablet by ORAL route every 6 hours As needed; 20 tablet; Refills: 0, kb Product Selection Permitted - Cipro 500 mg Oral Tablet - take 1 tablet by ORAL route every 12 hours for 7 days; 14 tablet; Refills: 0, kb Product Selection Permitted - Flomax 0.4 mg Oral capsule - take 1 capsule by ORAL route once daily 1/2 hour following the same meal each kb day; 10 capsule; Refills: 0, Product Selection Permitted - Diclofenac Sodium 75 mg Oral tablet,delayed release (DR/EC) - take 1 tablet by ORAL route 2 times per day As needed; 30 tablet; Refills: 0, kb Product Selection Permitted Signatures: Dispatcher [employer] Josy Salazar, WATER MANGLE TENDER-C WATER MANGLE TENDER-Rhina Malik RN RN iw Johanna Duarte RN RN ss Ila Hodges RN RN jh5 Corrections: (The following items were deleted from the chart) 20:22 20:21 Back: Positive for flank pain, kb kb
--- NOTE | 2022-07-05 18:57 | ER ---
Nurse's Notes [facility] Name: Hari Rincon Age: 21 yrs Sex: Male : 2000 Arrival Date: 07/05/2022 Time: 15:49 Bed 9 Private MD: Diagnosis: Calculus of kidney with calculus of ureter Presentation: 07/05 15:58 Chief complaint: Parent and/or Guardian states: pt has hx of kidney stones with iw lithotripsy and two retrievals , left flank pain today. Coronavirus screen: At this time, the client does not indicate any symptoms associated with coronavirus-19. Ebola Screen: Patient negative for fever greater than or equal to 101.5 degrees Fahrenheit, and additional compatible Ebola Virus Disease symptoms Patient denies exposure to infectious person. Patient denies travel to an Ebola-affected area in the 21 days before illness onset. No symptoms or risks identified at this time. Initial Sepsis Screen: Does the patient meet any 2 criteria? No. Patient's initial sepsis screen is negative. Does the patient have a suspected source of infection? No. Patient's initial sepsis screen is negative. Risk Assessment: Do you want to hurt yourself or someone else? Patient reports no desire to harm self or others. Onset of symptoms was July 05, 2022. 15:58 Method Of Arrival: Wheelchair 15:58 Acuity: NANDO 3 iw Historical: - Allergies: 16:00 No Known Allergies; iw - Home Meds: 16:00 None [Active]; iw - PMHx: 16:00 Anxiety; Kidney stone; iw - PSHx: 16:00 Lithotripsy; iw - Immunization history:: Adult Immunizations up to date. - Social history:: Smoking status: unknown. Screenin:34 Abuse screen: Denies threats or abuse. Denies injuries from another. Nutritional ss screening: On no prescribed diet. Tuberculosis screening: Never had TB. Fall Risk None identified. Assessment: 17:34 General: Appears uncomfortable, Behavior is cooperative, tearful, restless. Neuro: ss Level of Consciousness is awake, alert, obeys commands, Oriented to person, place, time, situation, Associate Professor [employer] are equal bilaterally. Neuro: Deng Agitation-Sedation Scale (RASS): +1 Restless. Respiratory: Airway is patent Respiratory effort is even, unlabored, Respiratory pattern is regular, symmetrical, Denies. GI: Reports severe pain to L flank area. Derm: Skin is pink, warm \T\ dry. normal. 18:18 Reassessment: PT reports significant relief of pain after Dilaudid administration. ss Mother assisting patient to eat crackers and take PO potassium ordered. 18:57 Reassessment: Patient appears in no apparent distress at this time. Patient and/or ss family updated on plan of care and expected duration. Pain level reassessed. Patient is alert, oriented x 3, equal unlabored respirations, skin warm/dry/pink. Patient states feeling better. Patient states symptoms have improved. Pain: Pain currently is 3 out of 10 on a pain scale. Vital Signs: 15:58 BP 134 / 85; Pulse 89; Resp 18; Temp 97.9; Pulse Ox 100% on R/A; iw 17:34 Pulse 81; Resp 18; Pulse Ox 100% on R/A; Pain 9/10; ss ED Course: 15:49 Patient arrived in ED. mr 15:53 [facility]y Kim F[facility]-C [facility] kb 15:53 Gage Rosa MD is Attending Physician. kb 16:00 Triage completed. iw 16:00 Arm band placed on. iw 16:11 Ila Hodges, KAITLIN is Primary Nurse. jh5 16:14 Inserted saline lock: 20 gauge in left antecubital area, using aseptic technique. Blood kc6 collected. 16:14 CBC with Diff Sent. kc6 16:14 CMP Sent. kc6 16:45 CT Stone Protocol In Process Unspecified. EDMS 17:34 Patient has correct armband on for positive identification. Bed in low position. ss 18:57 Harley Chun MD is Referral Physician. kb 19:06 No provider procedures requiring assistance completed. Patient did not have IV access ss during this emergency room visit. Administered Medications: 16:17 Drug: NS 0.9% 1000 ml Route: IV; Rate: 1 bolus; Site: left antecubital; jh5 16:17 Drug: Zofran (Ondansetron) 4 mg Route: IVP; Site: left antecubital; jh5 17:13 Follow up: Response: No adverse reaction ss 16:17 Drug: morphine 4 mg Route: IVP; Infused Over: 4 mins; Site: left antecubital; jh5 17:33 Follow up: Response: No adverse reaction; minimal relief of pain for short period of ss time. 17:10 Drug: Ketorolac 15 mg Route: IVP; Site: left antecubital; [facility] 17:34 Follow up: Response: No adverse reaction ss 17:10 Drug: Magnesium Sulfate 1 grams Route: IVPB; Infused Over: 1 hrs; Site: left [facility] antecubital; 18:10 Follow up: IV Status: Completed infusion; IV Intake: 100ml 17:10 Drug: Flomax (tamsulosin) 0.4 mg Route: PO; [facility] 17:34 Follow up: Response: No adverse reaction ss 17:33 Drug: morphine 4 mg {Note: RASS 0.} Route: IVP; Infused Over: 4 mins; Site: left antecubital; 18:09 Follow up: Response: No adverse reaction; RASS: Restless (+1) ss 18:09 Drug: Dilaudid (HYDROmorphone) 1 mg {Note: RASS +1.} Route: IVP; Site: left antecubital; 18:18 Follow up: Response: No adverse reaction; Marked relief of symptoms; Pain is decreased; RASS: Alert and Calm (0) 18:18 Drug: Potassium Chloride 20 mEq Route: PO; 19:07 Follow up: Response: No adverse reaction; Medication administered at discharge. ss Medication: 17:34 VIS not applicable for this client. ss Intake: 18:10 IV: 100ml; Total: 100ml. Outcome: 18:56 Discharge ordered by MD. paige 19:06 Discharged to home ambulatory, with family. 19:06 Condition: improved 19:06 Discharge instructions given to patient, family, Instructed on discharge instructions, follow up and referral plans. medication usage, Demonstrated understanding of instructions, follow-up care, medications, Prescriptions given X 4. 19:06 Patient left the ED. Signatures: Dispatcher [employer] EDMS Josy Kim, [place]ACH[place]-Bethanie Nunez Supriya greer Rhina Kang, RN Johanna Greene RN RN Ila Hodges RN RN Silvana Escalante Corrections: (The following items were deleted from the chart) 17:07 15:58 Resp 18bpm; Pulse Ox 100% RA; Temp 97.9F; iw iw
[2022-07-05 20:04] VITALS: BP 134/85; TEMP 97.9; O2SAT 100
== END 2022-07-05 19:06 | disposition home or self-care (01) ==
LOC: ER 15:49
DX: N20.2 Calculus of kidney with calculus of ureter (principal); Z87.442 Personal history of urinary calculi
CPT/HCPCS: 85025; 36415; 81003; 80053; 76377; 74176; J3475; J1170; J7030; J2405; 96365; 96375; 99284

== ENCOUNTER 2022-12-30 03:55 | Emergency (ER) | payer BC ==
[2022-12-30] MEDS ORDERED: MORPHINE 4 MG/ML SYR ONE (04:20)
[2022-12-30] MEDS ORDERED: KETOROLAC 30 MG/ML INJ ONE (04:20)
[2022-12-30] MEDS ORDERED: ONDANSETRON 4 MG/2 ML VIAL ONE (04:21)
[2022-12-30 04:33] LABS: Absolute Lymphocytes (CBC) 2.7 K/uL (0.7-4.9); Hematocrit 44.6 % (39.6-49.0); Lymphocytes % 27.3 % (15.3-44.8); MCV 88.3 fL (80-100); MPV 9.3 fL (7.6-11.3); RBC Red Blood Cell Count 5.05 M/uL (4.33-5.43)
[2022-12-30] MEDS ORDERED: NA CHLORIDE 0.9% 1,000 ML ONE (04:49)
[2022-12-30 04:50] LABS: Albumin 4.5 g/dL (3.4-5.0); Bilirubin Total 0.3 mg/dL (0.2-1.0); Potassium 3.7 mmol/L (3.5-5.1); Protein, Total 7.7 g/dL (6.4-8.2)
[2022-12-30 05:15] LABS: Urine Blood 3+ (Negative); Urine Glucose Negative (Negative); Urine Protein Trace (Negative)
[2022-12-30 05:35] LABS: Urine Bacteria <20 /HPF (<20); Urine Mucus Slight /HPF (None Seen); Urine RBC >50 /HPF (None Seen)
--- NOTE | 2022-12-30 05:42 | ER ---
Nurse's Notes [facility] Name: Hari Rincon Age: 22 yrs Sex: Male : 2000 Arrival Date: 12/30/2022 Time: 03:59 Bed 5 Private MD: Diagnosis: Calculus of ureter Presentation: 12/30 04:12 Chief complaint: Patient states: "I am hurting so bad. I think it is another kidney tw5 stone." Patient states that the pain started suddenly around 3 AM. Coronavirus screen: Vaccine status: Patient reports being unvaccinated. Ebola Screen: Patient negative for fever greater than or equal to 101.5 degrees Fahrenheit, and additional compatible Ebola Virus Disease symptoms Patient denies exposure to infectious person. Patient denies travel to an Ebola-affected area in the 21 days before illness onset. Initial Sepsis Screen: Does the patient meet any 2 criteria? No. Patient's initial sepsis screen is negative. Does the patient have a suspected source of infection? No. Patient's initial sepsis screen is negative. Risk Assessment: Do you want to hurt yourself or someone else? Patient reports no desire to harm self or others. Onset of symptoms was December 30, 2022 at 03:00. 04:12 Method Of Arrival: Wheelchair tw5 04:12 Acuity: NANDO 3 tw5 Triage Assessment: 04:15 General: Appears in no apparent distress. uncomfortable, Behavior is calm, cooperative, tw5 Smells of. General: Behavior is crying. Pain: Pain currently is 10 out of 10 on a pain scale. GI:. Historical: - Allergies: 04:15 No Known Allergies; tw5 - Home Meds: 04:15 albuterol sulfate Inhl [Active]; tw5 - PMHx: 04:15 Anxiety; Kidney stone; tw5 - PSHx: 04:15 Lithotripsy; tw5 - Immunization history:: Flu vaccine is not up to date. - Social history:: Smoking status: Patient denies any tobacco usage or history of. - Family history:: not pertinent. Screenin:[address] [facility] ED Fall Risk Assessment (Adult) History of falling in the last 3 months, pf1 including since admission No falls in past 3 months (0 pts) Confusion or Disorientation No (0 pts) Intoxicated or Sedated No (0 pts) Impaired Gait No (0 pts) Mobility Assist Device Used No (0 pt) Altered Elimination No (0 pt) Score/Fall Risk Level 0 - 2 = Low Risk Oriented to surroundings, Maintained a safe environment, Educated pt \\T\\ family on fall prevention, incl call for assistance when getting out of bed, Assessed \\T\\ reinforced patient's understanding of fall precautions, Provided non-skid footwear, Hourly rounding (assess needs \\T\\ fall precautionary measures) done, Used ambulatory aids as needed (educated on \\T\\ assisted with), Used gait belt as appropriate. Abuse screen: Denies threats or abuse. Nutritional screening: No deficits noted. Tuberculosis screening: No symptoms or risk factors identified. Assessment: 04:15 General: Appears in no apparent distress. uncomfortable, well groomed, well developed, pf1 Behavior is cooperative, crying. 04:15 Pain: Complains of pain in left flank pain that radiates to LLQ,onset 0300 with nausea pf1 Pain currently is 7 out of 10 on a pain scale. Neuro: No deficits noted. Level of Consciousness is awake, alert, obeys commands, Oriented to person, place, time, situation. Cardiovascular: No deficits noted. Capillary refill < 3 seconds Patient's skin is warm and dry. Respiratory: No deficits noted. Airway is patent Trachea midline Respiratory effort is even, unlabored, Respiratory pattern is regular, symmetrical, Breath sounds are clear bilaterally. GI: Reports lower abdominal pain, nausea, with left flank pain. : Reports urinary frequency, with dysuria,onset 2 weeks. Patient stated passed a kidney stone 3 days ago. EENT: No deficits noted. No signs and/or symptoms were reported regarding the EENT system. Derm: No deficits noted. No signs and/or symptoms reported regarding the dermatologic system. 04:54 Reassessment: Patient and/or family updated on plan of care and expected duration. Pain ll3 level reassessed. Patient is alert, oriented x 3, equal unlabored respirations, skin warm/dry/pink. States pain is 2/10 Patient states symptoms have improved. Vital Signs: 04:12 BP 169 / 104; Pulse 75; Resp 18; Temp 97; Pulse Ox 100% ; Weight 74.84 kg; Height 5 ft. tw5 9 in. (175.26 cm); Pain 10/10; 04:54 BP 139 / 94; Pulse 51; Resp 16; Pulse Ox 97% on R/A; Pain 2/10; ll3 04:12 Body Mass Index 24.37 (74.84 kg, 175.26 cm) tw5 ED Course: 03:59 Patient arrived in ED. ja2 04:04 Dhaval Ramirez MD is Attending Physician. rt 04:15 Triage completed. tw5 04:15 Arm band placed on. tw5 04:22 No provider procedures requiring assistance completed. Inserted saline lock: 22 gauge pf1 in left antecubital area, using aseptic technique. Blood collected. 04:25 CMP Sent. pf1 04:25 CBC with Diff Sent. pf1 04:44 CT Abd/Pelvis - Without Contrast In Process Unspecified. EDMS 05:14 UA MICROSCOPIC Sent. pf1 05:41 Harley Chun MD is Referral Physician. rt 05:52 Patient has correct armband on for positive identification. Placed in gown. Bed in low ll3 position. Call light in reach. Side rails up X 1. 05:52 IV discontinued, intact, bleeding controlled, No redness/swelling at site. Pressure ll3 dressing applied. Administered Medications: 04:30 Drug: Ketorolac 30 mg Route: IVP; Site: left antecubital; ll3 04:54 Follow up: Response: No adverse reaction; Marked relief of symptoms ll3 04:30 Drug: morphine 4 mg Route: IVP; Infused Over: 4 mins; Site: left antecubital; ll3 04:54 Follow up: Response: No adverse reaction; Marked relief of symptoms ll3 04:30 Drug: Zofran (Ondansetron) 4 mg Route: IVP; Site: left antecubital; ll3 04:54 Follow up: Response: No adverse reaction ll3 04:47 Drug: NS 0.9% 1000 ml Route: IV; Rate: 1 bolus; Site: left antecubital; ll3 Medication: 05:52 VIS not applicable for this client. ll3 Outcome: 05:41 Discharge ordered by . rt 05:52 Discharged to home ambulatory, with family. ll3 05:52 Condition: stable 05:52 Discharge instructions given to patient, family, Instructed on discharge instructions, follow up and referral plans. medication usage, Demonstrated understanding of instructions, follow-up care, medications, Prescriptions given X 3. 05:53 Patient left the ED. ll3 Signatures: Dispatcher [employer] EDMS Ila Sims Tiffany tw5 Alexander Alves RN RN ll3 Dhaval Ramirez MD MD rt Treasure arriaga RN RN pf1
--- NOTE | 2022-12-30 05:42 | EDPHYS ---
Physician Documentation [facility] Name: Hari Rincon Age: 22 yrs Sex: Male : 2000 Arrival Date: 12/30/2022 Time: 03:59 Bed 5 Private MD: ED Physician Dhaval Ramirez HPI: 12/30 04:23 This 22 yrs old Male presents to ER via Wheelchair with complaints of Possible Kidney rt Stone. 04:23 The patient complains of pain in the left mid back. The pain radiates. Onset: The rt symptoms/episode began/occurred 2 hour(s) ago. Modifying factors: The symptoms are alleviated by nothing. the symptoms are aggravated by nothing. Associated signs and symptoms: Pertinent positives: nausea. Severity of pain: At its worst the pain was severe. The patient has experienced similar episodes in the past. Historical: - Allergies: 04:15 No Known Allergies; tw5 - Home Meds: 04:15 albuterol sulfate Inhl [Active]; tw5 - PMHx: 04:15 Anxiety; Kidney stone; tw5 - PSHx: 04:15 Lithotripsy; tw5 - Immunization history:: Flu vaccine is not up to date. - Social history:: Smoking status: Patient denies any tobacco usage or history of. - Family history:: not pertinent. ROS: 04:23 Constitutional: Negative for fever, chills, and weight loss, Cardiovascular: Negative rt for chest pain, palpitations, and edema, Respiratory: Negative for shortness of breath, cough, wheezing, and pleuritic chest pain, MS/Extremity: Negative for injury and deformity, Skin: Negative for injury, rash, and discoloration, Neuro: Negative for headache, weakness, numbness, tingling, and seizure, Psych: Negative for depression, anxiety, suicide ideation, homicidal ideation, and hallucinations. 04:23 Abdomen/GI: Positive for nausea, Negative for abdominal pain. 04:23 Back: Positive for flank pain, Negative for decreased range of motion. Exam: 04:23 Constitutional: This is a well developed, well nourished patient who is awake, alert, rt and in no acute distress. Head/Face: Normocephalic, atraumatic. Chest/axilla: Normal chest wall appearance and motion. Nontender with no deformity. No lesions are appreciated. Cardiovascular: Regular rate and rhythm with a normal S1 and S2. No gallops, murmurs, or rubs. Normal PMI, no JVD. No pulse deficits. Respiratory: Lungs have equal breath sounds bilaterally, clear to auscultation and percussion. No rales, rhonchi or wheezes noted. No increased work of breathing, no retractions or nasal flaring. Skin: Warm, dry with normal turgor. Normal color with no rashes, no lesions, and no evidence of cellulitis. MS/ Extremity: Pulses equal, no cyanosis. Neurovascular intact. Full, normal range of motion. Neuro: Awake and alert, GCS 15, oriented to person, place, time, and situation. Cranial nerves II-XII grossly intact. Motor strength 5/5 in all extremities. Sensory grossly intact. Cerebellar exam normal. Normal gait. Psych: Awake, alert, with orientation to person, place and time. Behavior, mood, and affect are within normal limits. 04:23 Abdomen/GI: Mild suprapubic tenderness without rebound, guarding, distention. 04:23 Back: CVA tenderness, that is moderate, is noted on the left. Vital Signs: 04:12 BP 169 / 104; Pulse 75; Resp 18; Temp 97; Pulse Ox 100% ; Weight 74.84 kg; Height 5 ft. tw5 9 in. (175.26 cm); Pain 10/10; 04:54 BP 139 / 94; Pulse 51; Resp 16; Pulse Ox 97% on R/A; Pain 2/10; ll3 04:12 Body Mass Index 24.37 (74.84 kg, 175.26 cm) tw5 MDM: 04:06 Patient medically screened. rt 05:46 Differential diagnosis: nephrolithiasis, pyelonephritis. Data reviewed: vital signs, rt nurses notes, lab test result(s), EKG, radiologic studies. I considered the following discharge prescriptions or medication management in the emergency department Medications were administered in the Emergency Department. See MAR. Independent interpretation of the following test(s) in the Emergency Department CT Scan: My interpretation is Reviewed kidney stone. Historians other than the Patient: Parent: Mother gave prior history. Response to treatment: the patient's symptoms have resolved after treatment. 12/30 04:14 Order name: CBC with Diff; Complete Time: 04:43 rt 12/30 04:14 Order name: CMP; Complete Time: 05:35 rt 12/30 04:14 Order name: UA MICROSCOPIC; Complete Time: 05:35 rt 12/30 04:14 Order name: CT Abd/Pelvis - Without Contrast rt 12/30 05:15 Order name: Urine Dipstick-Ancillary; Complete Time: 05:35 EDMS 12/30 04:14 Order name: Urine Dipstick-Ancillary (obtain specimen); Complete Time: 05:14 rt Administered Medications: 04:30 Drug: Ketorolac 30 mg Route: IVP; Site: left antecubital; ll3 04:54 Follow up: Response: No adverse reaction; Marked relief of symptoms ll3 04:30 Drug: morphine 4 mg Route: IVP; Infused Over: 4 mins; Site: left antecubital; ll3 04:54 Follow up: Response: No adverse reaction; Marked relief of symptoms ll3 04:30 Drug: Zofran (Ondansetron) 4 mg Route: IVP; Site: left antecubital; ll3 04:54 Follow up: Response: No adverse reaction ll3 04:47 Drug: NS 0.9% 1000 ml Route: IV; Rate: 1 bolus; Site: left antecubital; ll3 Disposition Summary: 12/30/22 05:41 Discharge Ordered Location: Home rt Problem: an acute exacerbation rt Symptoms: have improved rt Condition: Stable rt Diagnosis - Calculus of ureter rt Followup: rt - With: Harley Chun MD - When: 2 - 3 days - Reason: Discharge Instructions: - Discharge Summary Sheet rt - Kidney Stones rt Forms: - Work release form rt - Medication Reconciliation Form rt - Thank You Letter rt - Antibiotic Education rt - Prescription Opioid Use rt Prescriptions: - ketorolac 10 mg Oral tablet - take 1 tablet by ORAL route every 6 hours not to exceed 40 mg in 24hrs; 18 rt tablet; Refills: 0, Product Selection Permitted - Tylenol-Codeine #3 300 mg-30 mg Oral - take 1 tablet by ORAL route every 6 hours; 18 tablet; Refills: 0, Product rt Selection Permitted - ondansetron 4 mg Oral - take 4 milligrams by SUBLINGUAL route every 6 hours; 21 tablet; Refills: 0, rt Product Selection Permitted Signatures: Dispatcher [employer] Edilma Wallace tw5 Alexander Alves RN RN ll3 Dhaval Ramirez, MD rt
[2022-12-30 05:59] VITALS: TEMP 97
[2022-12-30 06:01] VITALS: BP 139/94; O2SAT 97
--- NOTE | 2022-12-30 15:49 | RAD REPORT ---
EXAM DESCRIPTION: Abdomen Pelvis Wo Contrast CLINICAL HISTORY: 22 years Male Flank pain, kidney stone suspected COMPARISON: CT abdomen pelvis 07/05/2022. TECHNIQUE: CT of the abdomen and pelvis without contrast. All CT scans at this facility use dose modulation, iterative reconstruction, and/or weight based dosi ng when appropriate to reduce radiation dose to as low as reasonably achievable. FINDINGS: Lower thorax: Lung bases are clear Abdomen: Stomach: Within normal limits Liver: No focal lesions. No intrahepatic ductal distention. Gallbladder: Nondistended Pancreas: Within normal limits Spleen: Within normal limits Right kidney: No hydronephrosis.. Multiple renal stones, measuring up to 3 mm. Left kidney: Moderate hydronephrosis. Distal ureteral stone near the ureterovesicular junction measur ing 2 mm. Multiple tiny renal stones measuring 1 to 2 mm. Adrenal glands: Within normal limits Vascular structures: Within normal limits (although limited evaluation on noncontrast exam). Lymph nodes: No lymphadenopathy by size criteria Pelvis: Small bowel: No significant distention. Appendix: Within normal limits Colon: No distention or acute pericolonic edema. Peritoneum: No free intraperitoneal fluid or air. Bones: No acute bone findings. Bladder: Unremarkable. Reproductive organs: No acute findings. Note that evaluation of the bowel and solid organs is somewhat limited due to lack of intravenous and oral contrast. IMPRESSION: 1. Moderate left-sided hydronephrosis with 2 mm left distal ureteral stone near the ur eterovesicular junction. 2. Bilateral nephrolithiasis as above. Electronically signed by: Kris Wang MD 12/30/2022 5:00 AM [employer] Due to temporary technical issues with the PACS/Fluency reporting system, reports are being signed by the in house radiologists without review as a courtesy to insure prompt reporting. The interpreting radiologist is fully responsible for the content of the report.
== END 2022-12-30 05:53 | disposition home or self-care (01) ==
LOC: ER 03:55
DX: N20.1 Calculus of ureter (principal); Z87.442 Personal history of urinary calculi
CPT/HCPCS: 85025; 36415; 80053; 74176; 96375; 96374; 99284; J7030; J2405; 81003; 81015

== ENCOUNTER 2023-05-29 04:41 | Emergency (ER) | payer BC ==
[2023-05-29] MEDS ORDERED: ONDANSETRON 4 MG/2 ML VIAL ONE (05:06)
[2023-05-29] MEDS ORDERED: MORPHINE 4 MG/ML SYR ONE ×2 (05:06→05:51)
[2023-05-29] MEDS ORDERED: KETOROLAC 30 MG/ML INJ ONE ×2 (05:06→06:26)
[2023-05-29] MEDS ORDERED: NA CHLORIDE 0.9% 1,000 ML ONE ×2 (05:06→06:43)
[2023-05-29 05:39] LABS: Absolute Lymphocytes (CBC) 3.4 K/uL (0.7-4.9); Hematocrit 44.8 % (39.6-49.0); Lymphocytes % 34.2 % (15.3-44.8); MCV 87.5 fL (80-100); RBC Red Blood Cell Count 5.11 M/uL (4.33-5.43)
[2023-05-29 05:56] LABS: Albumin 4.5 g/dL (3.4-5.0); Bilirubin Total 0.5 mg/dL (0.2-1.0); Potassium 3.4 mEq/L (3.5-5.1); Protein, Total 7.9 g/dL (6.4-8.2)
[2023-05-29 05:59] LABS: Calcium Oxalate Crystals- Ur Moderate /HPF (None Seen); Specific Gravity 1.026 (1.005-1.030); Urine Bacteria None Seen /HPF (<20); Urine Bilirubin NEGATIVE (Negative); Urine Blood 3+ (OVER) (Negative); Urine Clarity Extremely Turbid (Clear); Urine Color Light-Orange (Yellow); Urine Glucose NEGATIVE (Negative); Urine Mucus 4+ /HPF (None Seen); Urine Protein 2+ (Negative); Urine RBC >50 /HPF (None Seen); Urine Urobilinogen Normal (Normal)
[2023-05-29] MEDS ORDERED: CEFTRIAXONE 1000 MG/VIAL ONE (06:38)
[2023-05-29] MEDS ORDERED: HYDROMORPHONE HCL 1 MG/ML INJ ONE (06:38)
--- NOTE | 2023-05-29 06:59 | ER ---
Nurse's Notes [facility] Name: Hari Rincon Age: 22 yrs Sex: Male : 2000 Arrival Date: 05/29/2023 Time: 04:41 Bed 18 Private MD: Diagnosis: Hydronephrosis with renal and ureteral calculous obstruction-4.7 MM DISTAL RIGHT;Hypokalemia Presentation: 05/29 04:51 Chief complaint: Patient states: right flank pain that started around 0400 am this as6 morning. pt has history of kidney stones. Coronavirus screen: At this time, the client does not indicate any symptoms associated with coronavirus-19. Ebola Screen: No symptoms or risks identified at this time. Onset of symptoms was May 29, 2023. 04:51 Acuity: NANDO 3 as6 04:51 Method Of Arrival: Wheelchair as6 04:56 Initial Sepsis Screen: Does the patient meet any 2 criteria? No. Patient's initial as6 sepsis screen is negative. Does the patient have a suspected source of infection? No. Patient's initial sepsis screen is negative. Risk Assessment: Do you want to hurt yourself or someone else? Patient reports no desire to harm self or others. Triage Assessment: 04:57 General: Appears uncomfortable, slender, Behavior is cooperative, crying, restless. as6 Pain: Complains of pain in right flank. : Reports pain in right flank(s). Historical: - Allergies: 04:57 No Known Allergies; as6 - PMHx: 04:57 Anxiety; Kidney stone; as6 - PSHx: 04:57 Lithotripsy; as6 - Immunization history:: Client reports having NOT received the Covid vaccine. - Social history:: Smoking status: Patient denies any tobacco usage or history of. - Family history:: not pertinent. Screenin:41 [facility] ED Fall Risk Assessment (Adult) History of falling in the last 3 months, os including since admission No falls in past 3 months (0 pts) Confusion or Disorientation No (0 pts) Intoxicated or Sedated No (0 pts) Impaired Gait No (0 pts) Mobility Assist Device Used No (0 pt) Altered Elimination No (0 pt) Score/Fall Risk Level 0 - 2 = Low Risk. Abuse screen: Denies threats or abuse. Nutritional screening: No deficits noted. Tuberculosis screening: No symptoms or risk factors identified. Assessment: 05:50 Reassessment: Patient appears in no apparent distress at this time. Patient and/or jb4 family updated on plan of care and expected duration. Pain level reassessed. Patient is alert, oriented x 3, equal unlabored respirations, skin warm/dry/pink. Pt reports pain has decreased and is now resting in bed comfortably. 06:44 Reassessment: Patient appears in no apparent distress at this time. Patient and/or jb4 family updated on plan of care and expected duration. Pain level reassessed. Patient is alert, oriented x 3, equal unlabored respirations, skin warm/dry/pink. 06:49 Reassessment: Pt noted to desat to 88% on RA after medication administration. Placed on jb4 2L NC now satting 97%. Awakens to verbal stimuli. 08:41 GI: Abd is soft. os Vital Signs: 04:56 BP 186 / 108; Pulse 84; Resp 18 S; Temp 97.5(O); Pulse Ox 100% on R/A; Weight 72.57 kg as6 (R); Height 5 ft. 9 in. (R); Pain 10/10; 05:13 BP 161 / 87; Pulse 63; Resp 23; Pulse Ox 100% on R/A; kd3 06:44 BP 180 / 94; Pulse 58; Resp 16; Pulse Ox 92% on R/A; jb4 08:17 BP 161 / 89; Pulse 61; Resp 14; Pulse Ox 99% on R/A; os 04:56 Body Mass Index 23.63 (72.57 kg, 175.26 cm) as6 04:56 Pain Scale: Adult as6 ED Course: 04:44 Patient arrived in ED. ja2 04:46 Gage Rosa MD is Attending Physician. roni 04:51 Triage completed. as6 04:57 Arm band placed on. as6 05:12 Miriam Schulz, KAITLIN is Primary Nurse. kd3 05:12 CBC with Diff Sent. kd3 05:12 CMP Sent. kd3 05:12 Lipase Sent. kd3 05:12 Urinalysis w/ reflexes Sent. kd3 05:13 Inserted saline lock: 20 gauge in right antecubital area, using aseptic technique. kd3 Blood collected. 05:33 CT Stone Protocol In Process Unspecified. EDFL 06:58 Harley Chun MD is Referral Physician. roni 08:41 No provider procedures requiring assistance completed. IV discontinued. os 08:42 Patient has correct armband on for positive identification. os Administered Medications: 05:12 Drug: NS 0.9% IV 1000 ml Route: IV; Rate: 1 bolus; Site: left antecubital; kd3 05:12 Drug: Ondansetron IVP 4 mg Route: IVP; Site: left antecubital; kd3 05:13 Drug: TORadol - Ketorolac IVP 15 mg Route: IVP; Site: left antecubital; kd3 05:13 Drug: morphine IVP or IV 4 mg Route: IVP; Infused Over: 4 mins; Site: left antecubital; kd3 05:44 Drug: morphine IVP or IV 4 mg Route: IVP; Infused Over: 4 mins; Site: left antecubital; jb4 05:50 Follow up: Response: No adverse reaction; Marked relief of symptoms; Pain is decreased jb4 06:19 Drug: Ketorolac IVP 15 mg Route: IVP; Site: left antecubital; kd3 06:36 Drug: Rocephin IV 1 grams Route: IV; Rate: per protocol; Site: left antecubital; kd3 06:37 Drug: NS 0.9% IV 1000 ml Route: IV; Rate: 1 bolus; Site: left antecubital; kd3 06:38 Drug: HYDROmorphone IVP 1 mg Route: IVP; Site: left antecubital; kd3 Medication: 08:42 VIS not applicable for this client. os Outcome: 06:58 Discharge ordered by . roni 08:41 Discharged to home os 08:41 Discharged to home ambulatory. 08:41 Condition: improved 08:41 Discharge instructions given to patient. 08:43 Patient left the ED. os Signatures: Dispatcher [employer] Gage Gómez MD MD cha Bryson, James, RN RN [email or web address] Ila Sims Ashby, RN RN as6 Miriam Schulz RN RN kd3 Lody Farley RN RN os Corrections: (The following items were deleted from the chart) 06:36 05:50 Reassessment: Pt reports pain has decreased and is now resting in bed jb4 comfortably. jb4 06:45 06:44 BP 176 / 91; Pulse 58bpm; Resp 16bpm; Pulse Ox 100% RA; jb4 jb4
--- NOTE | 2023-05-29 06:59 | EDPHYS ---
Physician Documentation [facility] Name: Hari Rincon Age: 22 yrs Sex: Male : 2000 Arrival Date: 05/29/2023 Time: 04:41 Bed 18 Private MD: EVA Physician Gage Rosa HPI: 05/29 06:09 This 22 yrs old Male presents to ER via Wheelchair with complaints of roni Possible Kidney Stone. 06:09 The patient presents with abdominal pain in the lower abdomen, right lower quadrant. roni Onset: The symptoms/episode began/occurred at 04:00. The patient complains of pain in the right mid back and right low back. The pain radiates to the right mid back and right low back. Onset: The symptoms/episode began/occurred at 04:00. Modifying factors: The symptoms are alleviated by nothing. the symptoms are aggravated by nothing. Associated signs and symptoms: Pertinent positives: nausea. Historical: - Allergies: 04:57 No Known Allergies; as6 - PMHx: 04:57 Anxiety; Kidney stone; as6 - PSHx: 04:57 Lithotripsy; as6 - Immunization history:: Client reports having NOT received the Covid vaccine. - Social history:: Smoking status: Patient denies any tobacco usage or history of. - Family history:: not pertinent. ROS: 06:09 Constitutional: Negative for fever, chills, and weight loss, Eyes: Negative for injury, roni pain, redness, and discharge, ENT: Negative for injury, pain, and discharge, Neck: Negative for injury, pain, and swelling, Cardiovascular: Negative for chest pain, palpitations, and edema, Respiratory: Negative for shortness of breath, cough, wheezing, and pleuritic chest pain, : Negative for injury, bleeding, discharge, and swelling, MS/Extremity: Negative for injury and deformity, Skin: Negative for injury, rash, and discoloration, Neuro: Negative for headache, weakness, numbness, tingling, and seizure, Psych: Negative for depression, anxiety, suicide ideation, homicidal ideation, and hallucinations, Allergy/Immunology: Negative for hives, rash, and allergies, Endocrine: Negative for neck swelling, polydipsia, polyuria, polyphagia, and marked weight changes, Hematologic/Lymphatic: Negative for swollen nodes, abnormal bleeding, and unusual bruising. 06:09 Abdomen/GI: Positive for abdominal pain, of the anterior aspect of right lateral abdomen, posterior aspect of right lateral abdomen, right upper quadrant and right lower quadrant. Exam: 06:09 Constitutional: This is a well developed, well nourished patient who is awake, alert, roni and in no acute distress. Head/Face: Normocephalic, atraumatic. Eyes: Pupils equal round and reactive to light, extra-ocular motions intact. Lids and lashes normal. Conjunctiva and sclera are non-icteric and not injected. Cornea within normal limits. Periorbital areas with no swelling, redness, or edema. ENT: Nares patent. No nasal discharge, no septal abnormalities noted. Tympanic membranes are normal and external auditory canals are clear. Oropharynx with no redness, swelling, or masses, exudates, or evidence of obstruction, uvula midline. Mucous membranes moist. Neck: Trachea midline, no thyromegaly or masses palpated, and no cervical lymphadenopathy. Supple, full range of motion without nuchal rigidity, or vertebral point tenderness. No Meningismus. Chest/axilla: Normal chest wall appearance and motion. Nontender with no deformity. No lesions are appreciated. Cardiovascular: Regular rate and rhythm with a normal S1 and S2. No gallops, murmurs, or rubs. Normal PMI, no JVD. No pulse deficits. Respiratory: Lungs have equal breath sounds bilaterally, clear to auscultation and percussion. No rales, rhonchi or wheezes noted. No increased work of breathing, no retractions or nasal flaring. Abdomen/GI: Soft, non-tender, with normal bowel sounds. No distension or tympany. No guarding or rebound. No evidence of tenderness throughout. Male : Normal genitalia with no discharge or lesions. Skin: Warm, dry with normal turgor. Normal color with no rashes, no lesions, and no evidence of cellulitis. MS/ Extremity: Pulses equal, no cyanosis. Neurovascular intact. Full, normal range of motion. Neuro: Awake and alert, GCS 15, oriented to person, place, time, and situation. Cranial nerves II-XII grossly intact. Motor strength 5/5 in all extremities. Sensory grossly intact. Cerebellar exam normal. Normal gait. Psych: Awake, alert, with orientation to person, place and time. Behavior, mood, and affect are within normal limits. 06:09 Back: pain, that is mild, that is moderate, of the right mid back and right low back, ROM is normal, normal spinal alignment noted, CVA tenderness, that is mild, is noted on the right. Vital Signs: 04:56 BP 186 / 108; Pulse 84; Resp 18 S; Temp 97.5(O); Pulse Ox 100% on R/A; Weight 72.57 kg as6 (R); Height 5 ft. 9 in. (R); Pain 10/10; 05:13 BP 161 / 87; Pulse 63; Resp 23; Pulse Ox 100% on R/A; kd3 06:44 BP 180 / 94; Pulse 58; Resp 16; Pulse Ox 92% on R/A; jb4 08:17 BP 161 / 89; Pulse 61; Resp 14; Pulse Ox 99% on R/A; os 04:56 Body Mass Index 23.63 (72.57 kg, 175.26 cm) as6 04:56 Pain Scale: Adult as6 MDM: 04:46 Patient medically screened. roni 06:15 Differential diagnosis: nephrolithiasis, pyelonephritis, UTI, diverticulitis, roni pancreatitis, Cholelithiasis, diverticulitis, pancreatitis, Peptic Ulcer Disease, Ureterolithiasis, urinary tract infection. Data reviewed: vital signs, nurses notes, lab test result(s), radiologic studies, CT scan. Consideration of Admission/Observation Escalation of care including admission/observation considered. I considered the following discharge prescriptions or medication management in the emergency department Medications were administered in the Emergency Department. See MAR. Test considered but Not performed: CT: stone. Care significantly affected by the following chronic conditions: anxiety, kidney stone. 05/29 04:56 Order name: CBC with Diff; Complete Time: 05:43 05/29 04:56 Order name: CMP; Complete Time: 06:21 05/29 04:56 Order name: Lipase; Complete Time: 06:21 05/29 04:56 Order name: Urinalysis w/ reflexes; Complete Time: 06:21 05/29 06:06 Order name: Urine Culture EDMS 05/29 04:56 Order name: CT Stone Protocol 05/29 04:56 Order name: IV Saline Lock; Complete Time: 05:12 05/29 04:56 Order name: Labs collected and sent; Complete Time: 05:12 as6 Administered Medications: 05:12 Drug: NS 0.9% IV 1000 ml Route: IV; Rate: 1 bolus; Site: left antecubital; kd3 05:12 Drug: Ondansetron IVP 4 mg Route: IVP; Site: left antecubital; kd3 05:13 Drug: TORadol - Ketorolac IVP 15 mg Route: IVP; Site: left antecubital; kd3 05:13 Drug: morphine IVP or IV 4 mg Route: IVP; Infused Over: 4 mins; Site: left antecubital; kd3 05:44 Drug: morphine IVP or IV 4 mg Route: IVP; Infused Over: 4 mins; Site: left antecubital; jb4 05:50 Follow up: Response: No adverse reaction; Marked relief of symptoms; Pain is decreased jb4 06:19 Drug: Ketorolac IVP 15 mg Route: IVP; Site: left antecubital; kd3 06:36 Drug: Rocephin IV 1 grams Route: IV; Rate: per protocol; Site: left antecubital; kd3 06:37 Drug: NS 0.9% IV 1000 ml Route: IV; Rate: 1 bolus; Site: left antecubital; kd3 06:38 Drug: HYDROmorphone IVP 1 mg Route: IVP; Site: left antecubital; kd3 Disposition Summary: 05/29/23 06:58 Discharge Ordered Location: Home roni Problem: new roni Symptoms: have improved roni Condition: Stable roni Diagnosis - Hydronephrosis with renal and ureteral calculous obstruction - 4.7 MM DISTAL RIGHT roni - Hypokalemia roni Followup: roni - With: Private Physician - When: 2 - 3 days - Reason: Recheck today's complaints, Continuance of care, Re-evaluation by your physician Followup: roni - With: - When: 2 - 3 days - Reason: Recheck today's complaints, Re-evaluation by your physician Discharge Instructions: - Discharge Summary Sheet roni - Potassium Content of Foods roni - Kidney Stones roni - Kidney Stones, [id number] roni - Hydronephrosis roni - Dietary Guidelines to Help Prevent Kidney Stones roni - Hypokalemia roni Forms: - Medication Reconciliation Form roni - Thank You Letter roni - Antibiotic Education roni - Prescription Opioid Use roni - [email or web address] [facility] Prescriptions: - Flomax 0.4 mg Oral capsule - take 1 capsule by ORAL route every 24 hours; 30 capsule; Refills: 0, Product [facility] Selection Permitted - acetaminophen-codeine 300-30 mg Oral tablet - take 2 tablet by ORAL route every 6 hours; 20 tablet; Refills: 0, Product [facility] Selection Permitted - Zofran 4 mg Oral Tablet - take 1 tablet by ORAL route every 12 hours As needed; 20 tablet; Refills: 0, [facility] Product Selection Permitted - Cipro 500 mg Oral Tablet - take 1 tablet by ORAL route every 12 hours for 7 days; 14 tablet; Refills: 0, [facility] Product Selection Permitted Signatures: Dispatcher [employer] Gage Gómez MD MD cha Bryson, James, RN RN jb4 Ap Danielle RN RN as6 Miriam Schulz RN RN kd3
[2023-05-29 08:50] VITALS: TEMP 97.5
[2023-05-29 08:53] VITALS: BP 161/89; O2SAT 99
--- NOTE | 2023-05-29 11:19 | RAD REPORT ---
EXAM DESCRIPTION: CT - Stone Protocol - 05/29/2023 6:27 am CLINICAL HISTORY: The patient is 22 years old and is Male; Abd pain; Flank pain TECHNIQUE: Axial computed tomography images of the abdomen and pelvis without intravenous contrast. Sagittal and coronal reformatted images were created and reviewed. This CT exam was performed usi ng one or more of the following dose reduction techniques: automated exposure control, adjustment o f the mA and/or kV according to patient size, and/or use of iterative reconstruction technique. COMPARISON: CT abdomen pelvis December 30, 2022. FINDINGS: Lung bases: Unremarkable. No mass. No consolidation. ABDOMEN: Liver: Unremarkable. Gallbladder and bile ducts: Unremarkable. No calcified stones. No ductal dilation. Pancreas: Unremarkable. No ductal dilation. Spleen: Unremarkable. No splenomegaly. Adrenals: Unremarkable. No mass. Kidneys and ureters: Right hydronephrosis with a 4.7 mm calculus in the distal right ureter. Punctate bilateral nephrolithiasis. Left kidney is otherwise unremarkable. Stomach and bowel: No bowel dilatation or obstruction. No bowel wall thickening. PELVIS: Appendix: The visualized appendix is normal. No pericecal inflammation to suggest acute appendici tis. Bladder: Unremarkable. No stones. Reproductive: Unremarkable as visualized. ABDOMEN and PELVIS: Intraperitoneal space: Unremarkable. No free air. No significant fluid collection. Bones/joints: No acute fracture visualized. No dislocation. Soft tissues: Unremarkable. Vasculature: Unremarkable. No abdominal aortic aneurysm. Lymph nodes: No pathologically enlarged lymph nodes. IMPRESSION: 1. Right hydronephrosis with a 4.7 mm calculus in the distal right ureter. 2. Punctate bilateral nephrolithiasis. Electronically signed by: Treasure Griffith MD 05/29/2023 6:14 AM CDT Due to temporary technical issues with the PACS/Fluency reporting system, reports are being signed by the in house radiologist without review as a courtesy to ensure prompt reporting. The interpreting r adiologist is fully responsible for the content of the report.
== END 2023-05-29 08:43 | disposition home or self-care (01) ==
LOC: ER 04:41
DX: N13.2 Hydronephrosis with renal and ureteral calculous obstruction (principal); E87.6 Hypokalemia; Z87.442 Personal history of urinary calculi
CPT/HCPCS: 87088; 85025; 81001; 87086; 36415; 83690; 80053; 76377; 74176; 96375; 96374; 99284; J1170; J2405; J7030 ×2; J0696

== ENCOUNTER → 2023-12-10 | Emergency (ER) | payer BC ==
[~2023-12-10] MED LIST: CEFTRIAXONE 1000 MG/VIAL ONE; HYDROMORPHONE HCL 1 MG/ML INJ ONE; KETOROLAC 30 MG/ML INJ ONE; NA CHLORIDE 0.9% 1,000 ML ONE; ONDANSETRON 4 MG/2 ML VIAL ONE; TAMSULOSIN 0.4 MG SR CAP ONE
[2023-12-10 07:51] LABS: Absolute Lymphocytes (CBC) 4.5 K/uL (0.7-4.9); Lymphocytes % 38.1 % (15.3-44.8); MCV 89.5 fL (80-100); MPV 9.1 fL (7.6-11.3); Platelets 326 thou/uL (152-406); RBC Red Blood Cell Count 5.03 M/uL (4.33-5.43)
[2023-12-10 08:05] LABS: Albumin 4.2 g/dL (3.4-5.0); Bilirubin Total 0.4 mg/dL (0.2-1.0); Potassium 3.4 mEq/L (3.5-5.1); Protein, Total 7.4 g/dL (6.4-8.2)
--- NOTE | 2023-12-10 08:25 | RAD REPORT ---
EXAM DESCRIPTION: CT - Stone Protocol - 12/10/2023 8:04 am CLINICAL HISTORY: Abdominal pain. Left flank pain COMPARISON: May 2023 TECHNIQUE: Computed axial tomography of the abdomen pelvis was obtained without oral or IV contrast. Lack of IV and oral contrast limits evaluation of solid organs, appendix, bowel, and vessels. Conway l reformatted images were obtained and reviewed. All CT scans are performed using dose optimization technique as appropriate and may include automated exposure control or mA/KV adjustment according to patient size. FINDINGS: 3 millimeter calculus left UVJ. Mild left hydronephrosis. Multiple, small bilateral renal calculi. No right hydronephrosis. The liver, spleen, pancreas and adrenals appear grossly normal There is no evidence of diverticulitis. The appendix appears normal IMPRESSION: 3 millimeters calculus left UVJ results in mild left hydronephrosis
--- NOTE | 2023-12-10 08:46 | ER ---
Nurse's Notes [facility] Name: Hari Rincon Age: 23 yrs Sex: Male : 2000 Arrival Date: 12/10/2023 Time: 07:28 Bed 7 Private MD: Diagnosis: Hydronephrosis with renal and ureteral calculous obstruction-3 mm left UVJ Presentation: 12/10 07:30 Chief complaint: Severe left flank pain and N/V that started at 0330 today. Hx of hb kidney stones. Coronavirus screen: At this time, the client does not indicate any symptoms associated with coronavirus-19. Ebola Screen: No symptoms or risks identified at this time. Initial Sepsis Screen: Does the patient meet any 2 criteria? No. Patient's initial sepsis screen is negative. Does the patient have a suspected source of infection? No. Patient's initial sepsis screen is negative. Risk Assessment: Do you want to hurt yourself or someone else? Patient reports no desire to harm self or others. Onset of symptoms was December 10, 2023. 07:30 Method Of Arrival: Ambulatory 07:30 Acuity: NANDO 2 hb Triage Assessment: 07:38 General: Appears uncomfortable, Behavior is anxious, crying. Pain: Complains of pain in mb9 back Pain radiates to left flank Pain currently is 10 out of 10 on a pain scale. Quality of pain is described as sharp, stabbing, throbbing, Pain began suddenly, Is continuous. EENT: No signs and/or symptoms were reported regarding the EENT system. Neuro: Deng Agitation-Sedation Scale (RASS): 0 - Alert and Calm Level of Consciousness is awake, alert, obeys commands, Oriented to person, place, time, situation, Appropriate for age. Cardiovascular: Patient's skin is warm and dry. Respiratory: Airway is patent Respiratory effort is even, unlabored, Respiratory pattern is regular, symmetrical. GI: Abdomen is flat, non-distended, Abd is soft and non tender X 4 quads. Reports nausea. : No signs and/or symptoms were reported regarding the genitourinary system. Derm: Skin is pink, warm \T\ dry. Musculoskeletal: Range of motion: intact in all extremities. Historical: - Allergies: 07:38 No Known Allergies; mb9 - PMHx: 07:37 Anxiety; Kidney stone; mb9 - PSHx: 07:37 Lithotripsy; mb9 - Immunization history:: Adult Immunizations up to date. - Social history:: Smoking status: Patient denies any tobacco usage or history of. - Family history:: not pertinent. Screenin:39 [facility] ED Fall Risk Assessment (Adult) History of falling in the last 3 months, mb9 including since admission No falls in past 3 months (0 pts) Confusion or Disorientation No (0 pts) Intoxicated or Sedated No (0 pts) Impaired Gait No (0 pts) Mobility Assist Device Used No (0 pt) Altered Elimination No (0 pt) Score/Fall Risk Level 0 - 2 = Low Risk Oriented to surroundings, Maintained a safe environment, Educated pt \T\ family on fall prevention, incl call for assistance when getting out of bed. Abuse screen: Denies threats or abuse. Nutritional screening: No deficits noted. Tuberculosis screening: No symptoms or risk factors identified. Assessment: 07:42 General: Appears distressed, uncomfortable, Behavior is anxious, crying, fussy. Pain: ld1 Complains of pain in anterior aspect of left lateral abdomen, posterior aspect of left lateral abdomen and left lower quadrant Pain does not radiate. Pain currently is 10 out of 10 on a pain scale. Quality of pain is described as sharp, shooting, throbbing, pinching, Pain began 4 hours ago. Is continuous. Neuro: Level of Consciousness is awake, alert, obeys commands, Oriented to person, place, time, situation. Cardiovascular: Capillary refill < 3 seconds Patient's skin is warm and dry. Rhythm is sinus rhythm. Respiratory: Airway is patent Respiratory effort is even, unlabored. GI: Abdomen is flat, non-distended, Bowel sounds present X 4 quads. : No signs and/or symptoms were reported regarding the genitourinary system. : Reports pain in left flank(s), lower quadrant(s). EENT: No signs and/or symptoms were reported regarding the EENT system. Derm: No signs and/or symptoms reported regarding the dermatologic system. Musculoskeletal: No signs and/or symptoms reported regarding the musculoskeletal system. 08:30 Reassessment: Patient and/or family updated on plan of care and expected duration. Pain mb9 level reassessed. Patient is alert, oriented x 3, equal unlabored respirations, skin warm/dry/pink. Patient states feeling better. Patient states symptoms have improved. Vital Signs: 07:30 BP 159 / 117; Pulse 100; Resp 18; Pulse Ox 100% on R/A; Weight 74.84 kg; Height 5 ft. 9 hb in. ; Pain 10/10; 07:42 BP 159 / 117; Pulse 68; Resp 22; Temp 97.5; Pulse Ox 100% ; Pain 10/10; mb9 08:21 BP 146 / 97; Pulse 74; Resp 16; Pulse Ox 100% on R/A; mb9 09:01 BP 140 / 86; Pulse 70; Resp 18; Pulse Ox 100% on R/A; mb9 07:30 Body Mass Index 24.37 (74.84 kg, 175.26 cm) hb 07:30 Pain Scale: Adult hb 07:42 Pain Scale: Adult mb9 ED Course: 07:29 Patient arrived in ED. rg4 07:33 Gage Rosa MD is Attending Physician. roni 07:37 Supriya Sarmiento RN is Primary Nurse. mb9 07:37 Arm band placed on. mb9 07:37 No provider procedures requiring assistance completed. mb9 07:40 Placed in gown. Bed in low position. Call light in reach. Side rails up X 1. Client mb9 placed on continuous cardiac and pulse oximetry monitoring. NIBP monitoring applied. 07:41 Triage completed. hb 07:41 Comprehensive Metabolic Panel Sent. ld1 07:41 CBC with Diff Sent. ld1 07:42 Inserted saline lock: 20 gauge in right forearm, using aseptic technique. Blood ld1 collected. 08:06 CT Stone Protocol In Process Unspecified. EDMS 08:45 Harley Chun MD is Referral Physician. roni 09:01 IV discontinued, intact, bleeding controlled, No redness/swelling at site. Pressure mb9 dressing applied. Administered Medications: 07:41 Drug: NS 0.9% IV 1000 ml IV at 1 bolus Per protocol; 1000 mL bolus Route: IV; Rate: 1 ld1 bolus; Site: right forearm; 08:48 Follow up: Response: No adverse reaction; IV Status: Completed infusion mb9 07:41 Drug: Ketorolac IVP 30 mg IVP once Route: IVP; Site: right forearm; ld1 07:52 Follow up: Response: No adverse reaction mb9 07:41 Drug: HYDROmorphone IVP 1 mg IVP once Route: IVP; Site: right forearm; ld1 07:52 Follow up: Response: No adverse reaction mb9 07:41 Drug: Ondansetron IVP 4 mg IVP once; over 2 minutes Route: IVP; Site: right forearm; ld1 07:52 Follow up: Response: No adverse reaction mb9 07:49 Drug: Ondansetron IVP 4 mg IVP once; over 2 minutes, may repeat Route: IVP; Site: right mb9 antecubital; 08:21 Follow up: Response: No adverse reaction mb9 07:50 Drug: HYDROmorphone IVP 1 mg IVP once; may repeat Route: IVP; Site: right antecubital; mb9 08:21 Follow up: Response: No adverse reaction mb9 07:51 Drug: Rocephin IV 1 grams IV at per protocol once; Given slow IV push per pharmacy mb9 instructions Route: IV; Rate: per protocol; Site: right antecubital; 07:51 Drug: NS 0.9% IV 1000 ml IV at 1 bolus Per protocol; 1000 mL bolus Route: IV; Rate: 1 mb9 bolus; Site: right antecubital; 08:48 Follow up: Response: No adverse reaction; IV Status: Completed infusion mb9 08:42 Drug: Flomax PO 0.4 mg PO Per protocol Route: PO; mb9 08:48 Follow up: Response: No adverse reaction mb9 Medication: 07:42 VIS not applicable for this client. ld1 Outcome: 08:46 Discharge ordered by MD. tamayo 09:01 Discharged to home via wheelchair, with family, mb9 09:01 Condition: stable 09:01 Discharge instructions given to patient, family, Instructed on discharge instructions, follow up and referral plans. Demonstrated understanding of instructions, follow-up care, medications, Prescriptions given X 4, 09:02 Patient left the ED. mb9 Signatures: Dispatcher [employer] EDGage Brandno MD MD cha Baxter, Heather RN RN Terese Santacruz rg4 Ale Sellers RN RN ld1 Supriya Sarmiento RN RN mb9 Corrections: (The following items were deleted from the chart) 07:54 07:42 BP 159 / 117; Pulse 68bpm; Resp 22bpm; Pulse Ox 100%; Pain 10/10, Adult; ld1 mb9 08:25 08:21 BP 150 / 100; Pulse 74bpm; Resp 16bpm; Pulse Ox 100% RA; mb9 mb9
--- NOTE | 2023-12-10 08:46 | EDPHYS ---
Physician Documentation [facility] Name: Hari Rincon Age: 23 yrs Sex: Male : 2000 Arrival Date: 12/10/2023 Time: 07:28 Bed 7 Private MD: EVA Physician Gage Rosa HPI: 12/10 08:39 This 23 yrs old Male presents to ER via Ambulatory with complaints of roni Possible Kidney Stone. 08:39 The patient presents with abdominal pain in the left lower quadrant. Onset: The roni symptoms/episode began/occurred just prior to arrival, this morning. The patient complains of pain in the left low back and left mid back. The pain radiates to the left low back and left mid back. Onset: The symptoms/episode began/occurred just prior to arrival, this morning. Modifying factors: The symptoms are alleviated by nothing. the symptoms are aggravated by nothing. The symptoms radiate to the left flank. Associated signs and symptoms: Pertinent positives: nausea. Associated signs and symptoms: none. Historical: - Allergies: 07:38 No Known Allergies; mb9 - PMHx: 07:37 Anxiety; Kidney stone; mb9 - PSHx: 07:37 Lithotripsy; mb9 - Immunization history:: Adult Immunizations up to date. - Social history:: Smoking status: Patient denies any tobacco usage or history of. - Family history:: not pertinent. ROS: 08:39 Constitutional: Negative for fever, chills, and weight loss, Eyes: Negative for injury, roni pain, redness, and discharge, ENT: Negative for injury, pain, and discharge, Neck: Negative for injury, pain, and swelling, Cardiovascular: Negative for chest pain, palpitations, and edema, Respiratory: Negative for shortness of breath, cough, wheezing, and pleuritic chest pain, Back: Negative for injury and pain, : Negative for injury, bleeding, discharge, and swelling, MS/Extremity: Negative for injury and deformity, Skin: Negative for injury, rash, and discoloration, Neuro: Negative for headache, weakness, numbness, tingling, and seizure, Psych: Negative for depression, anxiety, suicide ideation, homicidal ideation, and hallucinations, Allergy/Immunology: Negative for hives, rash, and allergies, Endocrine: Negative for neck swelling, polydipsia, polyuria, polyphagia, and marked weight changes, Hematologic/Lymphatic: Negative for swollen nodes, abnormal bleeding, and unusual bruising, 08:39 Abdomen/GI: Positive for abdominal pain, of the anterior aspect of left lateral abdomen, posterior aspect of left lateral abdomen and left lower quadrant, Exam: 08:39 Constitutional: This is a well developed, well nourished patient who is awake, alert, roni and in no acute distress. Head/Face: Normocephalic, atraumatic. Eyes: Pupils equal round and reactive to light, extra-ocular motions intact. Lids and lashes normal. Conjunctiva and sclera are non-icteric and not injected. Cornea within normal limits. Periorbital areas with no swelling, redness, or edema. ENT: Nares patent. No nasal discharge, no septal abnormalities noted. Tympanic membranes are normal and external auditory canals are clear. Oropharynx with no redness, swelling, or masses, exudates, or evidence of obstruction, uvula midline. Mucous membranes moist. Neck: Trachea midline, no thyromegaly or masses palpated, and no cervical lymphadenopathy. Supple, full range of motion without nuchal rigidity, or vertebral point tenderness. No Meningismus. Chest/axilla: Normal chest wall appearance and motion. Nontender with no deformity. No lesions are appreciated. Cardiovascular: Regular rate and rhythm with a normal S1 and S2. No gallops, murmurs, or rubs. Normal PMI, no JVD. No pulse deficits. Respiratory: Lungs have equal breath sounds bilaterally, clear to auscultation and percussion. No rales, rhonchi or wheezes noted. No increased work of breathing, no retractions or nasal flaring. Back: No spinal tenderness. No costovertebral tenderness. Full range of motion. Male : Normal genitalia with no discharge or lesions. Skin: Warm, dry with normal turgor. Normal color with no rashes, no lesions, and no evidence of cellulitis. MS/ Extremity: Pulses equal, no cyanosis. Neurovascular intact. Full, normal range of motion. Neuro: Awake and alert, GCS 15, oriented to person, place, time, and situation. Cranial nerves II-XII grossly intact. Motor strength 5/5 in all extremities. Sensory grossly intact. Cerebellar exam normal. Normal gait. Psych: Awake, alert, with orientation to person, place and time. Behavior, mood, and affect are within normal limits. 08:39 Abdomen/GI: Inspection: distension, Bowel sounds: normal, Palpation: abdomen is soft and non-tender, Liver: no appreciated palpable abnormalities, Hernia: not appreciated, Vital Signs: 07:30 BP 159 / 117; Pulse 100; Resp 18; Pulse Ox 100% on R/A; Weight 74.84 kg; Height 5 ft. 9 hb in. ; Pain 10/10; 07:42 BP 159 / 117; Pulse 68; Resp 22; Temp 97.5; Pulse Ox 100% ; Pain 10/10; mb9 08:21 BP 146 / 97; Pulse 74; Resp 16; Pulse Ox 100% on R/A; mb9 09:01 BP 140 / 86; Pulse 70; Resp 18; Pulse Ox 100% on R/A; mb9 07:30 Body Mass Index 24.37 (74.84 kg, 175.26 cm) hb 07:30 Pain Scale: Adult hb 07:42 Pain Scale: Adult mb9 MDM: 07:34 Patient medically screened. roni 08:43 Differential diagnosis: nephrolithiasis, pyelonephritis, UTI, testicular torsion, roni non-specific abd pain, Prostatitis, Pyelonephritis, Testicular Torsion, Ureterolithiasis. Data reviewed: vital signs, nurses notes, lab test result(s), radiologic studies, CT scan. Consideration of Admission/Observation Escalation of care including admission/observation considered. I considered the following discharge prescriptions or medication management in the emergency department Medications were administered in the Emergency Department. See MAR. Independent interpretation of the following test(s) in the Emergency Department CT Scan: My interpretation is ct stone. Test considered but Not performed: Ultrasound no renal usg. Care significantly affected by the following chronic conditions: kidney stone. 12/10 07:37 Order name: CBC with Diff; Complete Time: 08:37 roni 12/10 07:37 Order name: Comprehensive Metabolic Panel; Complete Time: 08:37 roni 12/10 07:37 Order name: CT Stone Protocol; Complete Time: 08:37 roni 12/10 08:38 Order name: PO challenge: juice; Complete Time: 08:42 roni Administered Medications: 07:41 Drug: NS 0.9% IV 1000 ml IV at 1 bolus Per protocol; 1000 mL bolus Route: IV; Rate: 1 ld1 bolus; Site: right forearm; 08:48 Follow up: Response: No adverse reaction; IV Status: Completed infusion mb9 07:41 Drug: Ketorolac IVP 30 mg IVP once Route: IVP; Site: right forearm; ld1 07:52 Follow up: Response: No adverse reaction mb9 07:41 Drug: HYDROmorphone IVP 1 mg IVP once Route: IVP; Site: right forearm; ld1 07:52 Follow up: Response: No adverse reaction mb9 07:41 Drug: Ondansetron IVP 4 mg IVP once; over 2 minutes Route: IVP; Site: right forearm; ld1 07:52 Follow up: Response: No adverse reaction mb9 07:49 Drug: Ondansetron IVP 4 mg IVP once; over 2 minutes, may repeat Route: IVP; Site: right mb9 antecubital; 08:21 Follow up: Response: No adverse reaction mb9 07:50 Drug: HYDROmorphone IVP 1 mg IVP once; may repeat Route: IVP; Site: right antecubital; mb9 08:21 Follow up: Response: No adverse reaction mb9 07:51 Drug: Rocephin IV 1 grams IV at per protocol once; Given slow IV push per pharmacy mb9 instructions Route: IV; Rate: per protocol; Site: right antecubital; 07:51 Drug: NS 0.9% IV 1000 ml IV at 1 bolus Per protocol; 1000 mL bolus Route: IV; Rate: 1 mb9 bolus; Site: right antecubital; 08:48 Follow up: Response: No adverse reaction; IV Status: Completed infusion mb9 08:42 Drug: Flomax PO 0.4 mg PO Per protocol Route: PO; mb9 08:48 Follow up: Response: No adverse reaction mb9 Disposition Summary: 12/10/23 08:46 Discharge Ordered Notes: Location: Home roni Problem: new roni Symptoms: have improved roni Condition: Stable roni Diagnosis - Hydronephrosis with renal and ureteral calculous obstruction - 3 mm left UVJ roni Followup: roni - With: Private Physician - When: 2 - 3 days - Reason: Recheck today's complaints, Continuance of care, Re-evaluation by your physician Followup: roni - With: Harley Chun MD - When: 2 - 3 days - Reason: Recheck today's complaints, Re-evaluation by your physician Discharge Instructions: - Discharge Summary Sheet roni - Kidney Stones roni - Kidney Stones, [id number] roni - Hydronephrosis roni - Dietary Guidelines to Help Prevent Kidney Stones roni Forms: - Medication Reconciliation Form roni - Thank You Letter roni - Antibiotic Education roni - Prescription Opioid Use roni - Patient Portal Instructions roni - Leadership Thank You Letter roni - Work release form eb Prescriptions: - acetaminophen-codeine 300-30 mg Oral tablet - take 2 tablet ORAL route every 6 hours as needed for pain; 20 tablet; Refills: roni 0, Product Selection Permitted - ketorolac 10 mg Oral tablet - take 1 tablet ORAL route 3 times per day for 3 days as needed for pain; 9 roni tablet; Refills: 0, Product Selection Permitted - ondansetron 4 mg Oral Tablet,disintegrating - take 1 tablet ORAL route every 6 to 8 hours for 5 days; 20 tablet; Refills: 0, [facility] Product Selection Permitted - Cipro 500 mg Oral Tablet - take 1 tablet ORAL route every 12 hours for 7 days; 14 tablet; Refills: 0, [facility] Product Selection Permitted Signatures: Dispatcher [employer] Gage Gómez MD MD cha Baxter, Heather, RN RN Ale Sellers RN RN ld1 Supriya Sarmiento RN RN mb9
[2023-12-10 09:23] VITALS: BP 140/86; TEMP 97.5; O2SAT 100
== END ==
LOC: ER 07:28
DX: N13.2 Hydronephrosis with renal and ureteral calculous obstruction (principal); Z87.442 Personal history of urinary calculi
CPT/HCPCS: 85025; 36415; 80053; 76377; 74176; 99284; J1170 ×2; J2405 ×2; J7030 ×2; J0696

== ENCOUNTER 2024-08-02 09:10 | Emergency (ER) | payer BC ==
--- NOTE | 2024-08-02 09:57 | RAD REPORT ---
EXAM DESCRIPTION: CTAbdomen Pelvis Wo Contrast - 08/02/2024 9:46 am CLINICAL HISTORY: Left flank pain COMPARISON: Stone Protocol dated 12/10/2023; Stone Protocol dated 05/29/2023; Abdomen Pelvis Wo Contr ast dated 12/30/2022; Stone Protocol dated 07/05/2022 TECHNIQUE: CT of the abdomen and pelvis was performed without contrast. All CT scans are performed using dose optimization technique as appropriate and may include automated exposure control or mA/KV adjustment according to patient size. FINDINGS: Lower chest: No acute abnormality. Liver: No acute abnormality or suspicious lesions. Biliary: No biliary ductal dilatation. Stomach: No significant focal abnormality. Duodenum: No significant focal abnormality. Pancreas: No significant abnormality. Spleen: No significant abnormality. Adrenal: No suspicious lesions. Kidney/ureter: No hydronephrosis. 2 mm stone in the left lower pole. Punctate right renal calculi. Retroperitoneum: No retroperitoneal adenopathy. Vascular: No aneurysm. Bowel: No significant focal abnormality. Normal appendix. Peritoneum: No ascites or free air. Bladder: 2 mm calcification likely within the bladder lumen is seen on image 71, series 203. Reproductive: No adnexal masses. Bones: No acute fracture. Other: n/a IMPRESSION: 2 mm calcification in the bladder lumen may be a recently passed ureteral stone. No hydr onephrosis. Nonobstructing renal calculi. Normal appendix .
[2024-08-02] MEDS ORDERED: KETOROLAC 30 MG/ML INJ ONE (10:08)
[2024-08-02] MEDS ORDERED: NA CHLORIDE 0.9% 1,000 ML ONE (10:08)
[2024-08-02] MEDS ORDERED: FAMOTIDINE 20 MG/2 ML VIAL IV ONE (10:08)
[2024-08-02 10:16] LABS: Absolute Basophils 0.1 K/uL (0-0.5); Absolute Eosinophils 0.7 K/uL (0-0.5); Absolute Lymphocytes (CBC) 1.8 K/uL (0.7-4.9); Absolute Neutrophil 7.4 K/uL (1.8-8.0); Basophils % 0.5 % (0-1.3); Eosinophils % 6.8 % (0-4.4); Hematocrit 46.4 % (39.6-49.0); Hemoglobin 16.3 g/dL (13.6-17.9); Lymphocytes % 16.2 % (15.3-44.8); MCH 31.1 pg (27.0-35.0); MCHC 35.2 g/dL (32.0-36.0); MCV 88.2 fL (80-100); Monocytes % 8.9 % (3.3-12.3); Neutrophils % 67.6 % (41.7-73.7); Nucleated Red Blood Cells % 0.2 % (0-0); Platelets 319 thou/uL (152-406); RBC Red Blood Cell Count 5.25 M/uL (4.33-5.43); Red Cell Distribution Width 13.2 % (12.1-15.2)
[2024-08-02 10:20] LABS: Sqamous Epithelial <5 /HPF (None Seen); Urine Bacteria None Seen /HPF (<20); Urine Bilirubin NEGATIVE (Negative); Urine Blood 3+ (OVER) (Negative); Urine Clarity Extremely Turbid (Clear); Urine Color Yellow (Yellow); Urine Culture Reflex Order NOT NEEDED; Urine Glucose NEGATIVE (Negative); Urine Ketones NEGATIVE (Negative); Urine Microscopic Reflex YN ORDER UMIC; Urine Mucus 4+ /HPF (None Seen); Urine Nitrite NEGATIVE (Negative); Urine Protein 1+ (Negative); Urine RBC >50 /HPF (None Seen); Urine Urobilinogen Normal (Normal); Urine Yeast (Budding) Trace /HPF (None Seen)
[2024-08-02 10:34] LABS: Albumin 4.6 g/dL (3.4-5.0); Albumin/Globulin Ratio 1.5 (1.1-1.8); Anion Gap 10.6 mEq/L (5.0-15.0); Globulin 3.1 g/dL (2.3-3.5); Potassium 3.6 mEq/L (3.5-5.1); Protein, Total 7.7 g/dL (6.4-8.2)
--- NOTE | 2024-08-02 10:43 | EDPHYS ---
Physician Documentation [facility] Name: Hari Rincon Age: 23 yrs Sex: Male : 2000 Arrival Date: 08/02/2024 Time: 09:10 Bed 18 Private MD: ED Physician Abraham Sellers HPI: 08/02 09:53 This 23 yrs old Male presents to ER via Ambulatory with complaints of Possible Kidney ms3 Stone. 09:53 23-year-old male with past medical history of anxiety, kidney stones presents to the [facility] [place] department for left flank pain. Patient states he was woken at 2:30 AM. Patient rates pain a 7/10. He states the pain is better when taking a hot bath. He denies inciting factors.. Historical: - Allergies: :35 No Known Allergies; hb - Home Meds: :35 None [Active]; hb - PMHx: 09:35 Anxiety; Kidney stone; hb - PSHx: 09:35 Lithotripsy; hb - Immunization history:: Adult Immunizations up to date. - Infectious Disease History:: Denies. - Social history:: Smoking status: Patient/guardian denies using tobacco. ROS: 09:53 Constitutional: Negative for fever, and chills. Cardiovascular: Negative for chest ms3 pain, and palpitations. Respiratory: Negative for shortness of breath, cough, wheezing, and pleuritic chest pain, Abdomen/GI: Negative for abdominal pain, nausea, vomiting, diarrhea, and constipation, MS/Extremity: Negative for injury and deformity, Skin: Negative for injury, rash, and discoloration, 09:53 Back: Positive for flank pain, on the left, Exam: 09:53 Constitutional: This is a well developed, well nourished patient who is awake, alert, ms3 and in no acute distress. Cardiovascular: Regular rate and rhythm with a normal S1 and S2. No gallops, murmurs, or rubs. Normal PMI, no JVD. No pulse deficits. Respiratory: Lungs have equal breath sounds bilaterally, clear to auscultation and percussion. No rales, rhonchi or wheezes noted. No increased work of breathing, no retractions or nasal flaring. Abdomen/GI: Soft, non-tender, with normal bowel sounds. No distension or tympany. No guarding or rebound. No evidence of tenderness throughout. 09:53 Back: pain, that is moderate, CVA tenderness, that is moderate, is noted on the left, Vital Signs: 09:32 BP 142 / 100; Pulse 87; Resp 20; Temp 97.9; Pulse Ox 100% on R/A; Weight 74.84 kg; hb Height 5 ft. 9 in. ; Pain 8/10; 10:47 BP 140 / 78; Pulse 72; Resp 15; Pulse Ox 97% ; Pain 1/10; jl7 09:32 Body Mass Index 24.37 (74.84 kg, 175.26 cm) hb 09:32 Pain Scale: Adult hb 10:47 Pain Scale: Adult jl7 MDM: 09:35 Patient medically screened. ms3 09:53 Differential diagnosis: nephrolithiasis, pyelonephritis, UTI. ms3 10:43 Data reviewed: vital signs, nurses notes, lab test result(s), radiologic studies, and ms3 as a result, I will discharge patient. I considered the following discharge prescriptions or medication management in the emergency department Medications were administered in the Emergency Department. See MAR. Independent interpretation of the following test(s) in the Emergency Department CT Scan: My interpretation is CT abdomen pelvis without contrast images reviewed by me does not reveal free air or ureterolithiasis. Counseling: I had a detailed discussion with the patient and/or guardian regarding the historical points, exam findings, and any diagnostic results supporting the discharge/admit diagnosis, lab results, radiology results, the need for outpatient follow up, to return to the emergency department if symptoms worsen or persist or if there are any questions or concerns that arise at home. Response to treatment: the patient's symptoms have markedly improved after treatment, and as a result, I will discharge patient. Special discussion: I discussed with the patient/guardian in detail that at this point there is no indication for admission to the hospital. It is understood, however, that if the symptoms persist or worsen the patient needs to return immediately for re-evaluation. ED course: Discussed calculus in patient's bladder. Patient's symptoms resolved at this time. Patient to follow-up with primary care physician in 2 to 3 days. Patient understands and agrees with plan. All questions were answered. Return precautions discussed include worsening symptoms, or any other concerns. 08/02 09:35 Order name: CBC with Diff; Complete Time: 10:37 ms3 08/02 09:35 Order name: CMP; Complete Time: 10:37 ms3 08/02 09:35 Order name: Lipase; Complete Time: 10:37 ms3 08/02 09:35 Order name: Urinalysis w/ reflexes; Complete Time: 10:37 ms3 08/02 09:35 Order name: CT Abd/Pelvis - Without Contrast; Complete Time: 09:59 ms3 08/02 09:35 Order name: IV Saline Lock; Complete Time: 10:14 ms3 08/02 09:35 Order name: Labs collected and sent; Complete Time: 10:14 ms3 Administered Medications: 10:10 Drug: NS 0.9% IV 1000 ml IV at 1 bolus Per protocol; 1000 mL bolus Route: IV; Rate: 1 jl7 bolus; Site: right antecubital; 11:14 Follow up: Response: No adverse reaction; IV Status: Completed infusion; IV Intake: jl7 1000ml 10:11 Drug: TORadol - Ketorolac IVP 15 mg IVP once Route: IVP; Site: right antecubital; jl7 10:48 Follow up: Response: No adverse reaction; Pain is decreased jl7 10:14 Drug: Famotidine IVP 20 mg IVP once; dilute with 10 mL 0.9% NaCl; give over 2 minutes jl7 Route: IVP; Site: right antecubital; 10:43 Follow up: Response: No adverse reaction jl7 Disposition Summary: 08/02/24 10:42 Discharge Ordered Notes: Location: Home ms3 Condition: Stable ms3 Diagnosis - Kidney Stone/ Calculus in bladder ms3 Followup: ms3 - With: Nader Avila DO - When: 2 - 3 days - Reason: Recheck today's complaints Discharge Instructions: - Discharge Summary Sheet ms3 - Kidney Stones, Awet-gn-Icrm ms3 - Dietary Guidelines to Help Prevent Kidney Stones ms3 Forms: - Medication Reconciliation Form ms3 - Antibiotic Education ms3 - Prescription Opioid Use ms3 - Patient Portal Instructions ms3 - Leadership Thank You Letter ms3 Signatures: Dispatcher [employer] Kaylan Dias RN RN Evy Walton RN RN jl7 Abraham Sellers DO DO ms3 Corrections: (The following items were deleted from the chart) 09:35 09:35 CBC+H.LAB.BRZ ordered. EDMS EDMS : 09:35 COMPREHENSIVE METABOLIC PANEL+C.LAB.BRZ ordered. EDMS EDMS 09:35 LIPASE+C.LAB.BRZ ordered. EDMS EDMS 09:35 Urinalysis+U.LAB.BRZ ordered. EDMS EDMS
--- NOTE | 2024-08-02 10:43 | ER ---
Nurse's Notes [facility] Name: Hari Rincon Age: 23 yrs Sex: Male : 2000 Arrival Date: 08/02/2024 Time: 09:10 Bed 18 Private MD: Diagnosis: Kidney Stone/ Calculus in bladder Presentation: 08/02 09:32 Chief complaint: Left flank pain, difficulty urinating, and nausea since last night. hb Coronavirus screen: At this time, the client does not indicate any symptoms associated with coronavirus-19. Ebola Screen: No symptoms or risks identified at this time. Initial Sepsis Screen: Does the patient meet any 2 criteria? No. Patient's initial sepsis screen is negative. Does the patient have a suspected source of infection? No. Patient's initial sepsis screen is negative. Risk Assessment: Do you want to hurt yourself or someone else? Patient reports no desire to harm self or others. Onset of symptoms was August 02, 2024. 09:32 Method Of Arrival: Ambulatory hb 09:32 Acuity: NANDO 3 hb Triage Assessment: 09:36 General: Appears in no apparent distress. Behavior is calm, cooperative. Pain: Pain hb currently is 8 out of 10 on a pain scale. Neuro: Level of Consciousness is awake, alert, obeys commands, Oriented to person, place, time, situation. Cardiovascular: No deficits noted. Respiratory: Respiratory effort is even, unlabored, Respiratory pattern is regular, symmetrical. GI: Reports nausea, left flank pain. : Reports difficulty urinating. Historical: - Allergies: 09:35 No Known Allergies; hb - Home Meds: 09:35 None [Active]; hb - PMHx: 09:35 Anxiety; Kidney stone; hb - PSHx: 09:35 Lithotripsy; hb - Immunization history:: Adult Immunizations up to date. - Infectious Disease History:: Denies. - Social history:: Smoking status: Patient/guardian denies using tobacco. Screenin:47 [facility] ED Fall Risk Assessment (Adult) History of falling in the last 3 months, jl7 including since admission No falls in past 3 months (0 pts) Confusion or Disorientation No (0 pts) Intoxicated or Sedated No (0 pts) Impaired Gait No (0 pts) Mobility Assist Device Used No (0 pt) Altered Elimination No (0 pt) Score/Fall Risk Level 0 - 2 = Low Risk Oriented to surroundings, Maintained a safe environment. Abuse screen: Denies threats or abuse. Denies injuries from another. Nutritional screening: No deficits noted. Tuberculosis screening: No symptoms or risk factors identified. Assessment: 09:45 General: Appears in no apparent distress. uncomfortable, Behavior is calm, cooperative, jl7 appropriate for age. Pain: Complains of pain in left lower quadrant Pain currently is 8 out of 10 on a pain scale. Neuro: Level of Consciousness is awake, alert, obeys commands, Oriented to person, place, time, situation. Cardiovascular: Patient's skin is warm and dry. Respiratory: Airway is patent Respiratory effort is even, unlabored, Respiratory pattern is regular, symmetrical. GI: not auscultated Abd is soft and non tender. : Reports pain in left lower quadrant(s). Derm: Skin is pink, warm \T\ dry. Vital Signs: 09:32 BP 142 / 100; Pulse 87; Resp 20; Temp 97.9; Pulse Ox 100% on R/A; Weight 74.84 kg; hb Height 5 ft. 9 in. ; Pain 8/10; 10:47 BP 140 / 78; Pulse 72; Resp 15; Pulse Ox 97% ; Pain 1/10; jl7 09:32 Body Mass Index 24.37 (74.84 kg, 175.26 cm) hb 09:32 Pain Scale: Adult hb 10:47 Pain Scale: Adult jl7 ED Course: 09:13 Patient arrived in ED. mr 09:14 Abraham Sellers DO is Attending Physician. ms3 09:33 Triage completed. hb 09:36 Arm band placed on. hb 09:37 Evy Walton, RN is Primary Nurse. jl7 09:48 CT Abd/Pelvis - Without Contrast In Process Unspecified. EDMS 10:00 Patient has correct armband on for positive identification. Placed in gown. Bed in low jl7 position. Call light in reach. Side rails up X 1. Provided Education on: use of call rodgers. Warm blanket given. 10:17 Initial lab(s) drawn, by me, sent to lab. Inserted saline lock: 20 gauge in right em1 forearm, using aseptic technique. Blood collected. Flushed with 10 mL NS. 10:42 Nader Avila DO is Referral Physician. ms3 11:14 No provider procedures requiring assistance completed. IV discontinued, intact, jl7 bleeding controlled, No redness/swelling at site. Pressure dressing applied. Administered Medications: 10:10 Drug: NS 0.9% IV 1000 ml IV at 1 bolus Per protocol; 1000 mL bolus Route: IV; Rate: 1 jl7 bolus; Site: right antecubital; 11:14 Follow up: Response: No adverse reaction; IV Status: Completed infusion; IV Intake: jl7 1000ml 10:11 Drug: TORadol - Ketorolac IVP 15 mg IVP once Route: IVP; Site: right antecubital; jl7 10:48 Follow up: Response: No adverse reaction; Pain is decreased jl7 10:14 Drug: Famotidine IVP 20 mg IVP once; dilute with 10 mL 0.9% NaCl; give over 2 minutes jl7 Route: IVP; Site: right antecubital; 10:43 Follow up: Response: No adverse reaction jl7 Medication: 10:47 VIS not applicable for this client. jl7 Intake: 11:14 IV: 1000ml; Total: 1000ml. jl7 Outcome: 10:42 Discharge ordered by MD. ms3 11:14 Discharged to home ambulatory, jl7 11:14 Condition: stable 11:14 Discharge instructions given to patient, Instructed on discharge instructions, follow up and referral plans. Demonstrated understanding of instructions, follow-up care, 11:15 Patient left the ED. jl7 Signatures: Dispatcher [employer] EDAZ Supriya Nunez, Venu Lea mr CastroLuis em1 Kaylan Kennedy RN RN Evy Walton RN RN jl7 Abraham Sellers DO DO ms3
[2024-08-02 11:24] VITALS: TEMP 97.9
[2024-08-02 11:25] VITALS: BP 140/78; O2SAT 97
== END 2024-08-02 11:15 | disposition home or self-care (01) ==
LOC: ER 09:10
DX: N20.0 Calculus of kidney (principal); N21.0 Calculus in bladder; Z87.442 Personal history of urinary calculi
CPT/HCPCS: 96361; 85025; 81001; 36415; 83690; 80053; 74176; 96375; 96374; 99284; J7030

== ENCOUNTER 2024-08-12 13:17 | Emergency (ER) | payer BC ==
[2024-08-12 14:00] LABS: Absolute Basophils 0.1 K/uL (0-0.5); Absolute Eosinophils 0.1 K/uL (0-0.5); Absolute Neutrophil 9.1 K/uL (1.8-8.0); Eosinophils % 0.9 % (0-4.4); Hematocrit 46.5 % (39.6-49.0); Hemoglobin 16.3 g/dL (13.6-17.9); Lymphocytes % 16.3 % (15.3-44.8); MCH 30.7 pg (27.0-35.0); MCV 87.9 fL (80-100); MPV 9.1 fL (7.6-11.3); Monocytes % 8.4 % (3.3-12.3); Neutrophils % 73.4 % (41.7-73.7); Platelets 369 thou/uL (152-406); RBC Red Blood Cell Count 5.29 M/uL (4.33-5.43)
[2024-08-12] MEDS ORDERED: ONDANSETRON 4 MG/2 ML VIAL ONE (14:00)
[2024-08-12] MEDS ORDERED: MORPHINE 4 MG/ML SYR ONE (14:00)
[2024-08-12 14:04] LABS: D-Dimer 0.263 FEUug/mL (0-0.500); PT Prothrombin Time 14.1 SECONDS (9.4-12.5); Protime INR 1.27
[2024-08-12 14:17] LABS: Albumin 4.6 g/dL (3.4-5.0); Albumin/Globulin Ratio 1.3 (1.1-1.8); Anion Gap 11.5 mEq/L (5.0-15.0); Bilirubin Direct 0.2 mg/dL (0-0.2); Bilirubin Indirect, Calculated 0.6 mg/dL (0.2-0.8); Bilirubin Total 0.8 mg/dL (0.2-1.0); Globulin 3.6 g/dL (2.3-3.5); Magnesium 1.8 mg/dL (1.6-2.4); Potassium 3.5 mEq/L (3.5-5.1); Protein, Total 8.2 g/dL (6.4-8.2); Troponin High Sensitivity 4.1 pg/mL (<58.9)
[2024-08-12] MEDS ORDERED: LORazepam 2 MG/ML VIAL ONE (14:24)
[2024-08-12 15:01] LABS: SARS-CoV-2 Antigen CONTROL BLUE LINE VIS/BG OK; SARS-CoV-2 Antigen Rapid Res Negative (Negative)
--- NOTE | 2024-08-12 15:22 | RAD REPORT ---
EXAMINATION: ONE VIEW CHEST XR CLINICAL INDICATION: Male, 23 years old. [facility] MAIN CHEST PAIN Bed Name: [id number] TECHNIQUE: Frontal chest projection is submitted. Examination is limited by patient positioning and t echnique. COMPARISON: No prior exam. FINDINGS: The lungs are well inflated and clear. No pneumothorax or sizable effusion. The heart is normal in s ize. IMPRESSION: No acute intrathoracic abnormalities.
[2024-08-12] MEDS ORDERED: DIPHENHYDRAMINE 50 MG/ML VIAL ONE (15:43)
--- NOTE | 2024-08-12 17:13 | RAD REPORT ---
EXAM: CT CHEST WITH CONTRAST CLINICAL INDICATION: Male, 23 years old. Chest pain TECHNIQUE: Routine CT scan of the chest with intravenous contrast. One or more of the following dose reduction techniques were used: Automated exposure control, adjustment of the mA and/or kV according to patient size, and/or iterative reconstruction. Unless otherwise specified, incidental fi ndings do not require dedicated imaging follow-up. COMPARISON: Chest radiograph of earlier the same day. FINDINGS: LUNGS: Airways are clear. No evidence of airspace or interstitial process. No nodules. PLEURA: No pleural effusion. No pneumothorax. MEDIASTINUM AND LYMPH NODES: No mediastinal mass or fluid collection. Normal size mediastinal, hilar, and axillary lymph nodes. To the extent evaluated, the aorta and proximal pulmonary arteries are unremarkable. OSSEOUS STRUCTURES AND CHEST WALL: Intact. UPPER ABDOMEN: No significant abnormalities. IMPRESSION: No acute or significant abnormalities in the chest.
[2024-08-12] MEDS ORDERED: NA CHLORIDE 0.9% 1,000 ML ONE (17:24)
[2024-08-12] MEDS ORDERED: KETOROLAC 30 MG/ML INJ ONE (17:24)
--- NOTE | 2024-08-12 18:26 | ER ---
Nurse's Notes [facility] Name: Hari Rincon Age: 23 yrs Sex: Male : 2000 Arrival Date: 08/12/2024 Time: 13:17 Bed 8 Private MD: Diagnosis: Chest pain, unspecified;Anxiety disorder, unspecified;Pain in left shoulder Presentation: 08/12 13:35 Chief complaint: Patient states: Chest pain to left and right chest onset this morning. cm10 Pt reports that the pain originally began in his left shoulder. Pt complaining of shortness of breath. Coronavirus screen: Client denies travel out of the [place] in the last 14 days. At this time, the client does not indicate any symptoms associated with coronavirus-19. Ebola Screen: Patient denies travel to an Ebola-affected area in the 21 days before illness onset. No symptoms or risks identified at this time. Initial Sepsis Screen: Does the patient meet any 2 criteria? RR > 20 per min. HR > 90 bpm. Does the patient have a suspected source of infection? No. Patient's initial sepsis screen is negative. Risk Assessment: Do you want to hurt yourself or someone else? Patient reports no desire to harm self or others. Onset of symptoms was August 12, 2024. 13:35 Method Of Arrival: Wheelchair cm10 13:35 Acuity: NANDO 2 cm10 Historical: - Allergies: 13:36 No Known Allergies; cm10 - PMHx: 13:36 Anxiety; Kidney stone; cm10 - PSHx: 13:36 Lithotripsy; cm10 - Immunization history:: Adult Immunizations up to date. - Infectious Disease History:: Denies. - Social history:: Smoking status: Patient/guardian denies using tobacco. Screenin:58 [facility] ED Fall Risk Assessment (Adult) History of falling in the last 3 months, ph including since admission No falls in past 3 months (0 pts) Confusion or Disorientation No (0 pts) Intoxicated or Sedated Yes (3 pts) Impaired Gait No (0 pts) Mobility Assist Device Used Yes (1 pt) Altered Elimination No (0 pt) Score/Fall Risk Level 0 - 2 = Low Risk Oriented to surroundings, Maintained a safe environment, Hourly rounding (assess needs \\T\\ fall precautionary measures) done. Abuse screen: Denies threats or abuse. Denies injuries from another. Nutritional screening: No deficits noted. Tuberculosis screening: No symptoms or risk factors identified. Assessment: 13:56 General: Appears in no apparent distress. uncomfortable, Behavior is cooperative, ph anxious. Pain: Complains of pain in chest Pain radiates to back Pain began this morning. Neuro: Level of Consciousness is awake, alert, obeys commands, Oriented to person, place, time, situation. Cardiovascular: Reports chest pain, shortness of breath. Respiratory: Airway is patent Respiratory effort is even, unlabored, Respiratory pattern is regular, symmetrical. Derm: Skin is pink, warm \\T\\ dry. Musculoskeletal: Circulation, motion, and sensation intact. Range of motion: intact in all extremities. 14:30 Reassessment: Patient appears in no apparent distress at this time. Patient and/or ph family updated on plan of care and expected duration. Pain level reassessed. 16:00 Reassessment: Patient appears in no apparent distress at this time. Patient and/or ph family updated on plan of care and expected duration. Pain level reassessed. Patient is alert, oriented x 3, equal unlabored respirations, skin warm/dry/pink. 17:39 Reassessment: Patient appears in no apparent distress at this time. Patient and/or ph family updated on plan of care and expected duration. Pain level reassessed. Patient is alert, oriented x 3, equal unlabored respirations, skin warm/dry/pink. Pt no longer appears anxious, states that most of his pain has been relieved, "It only hurts when I take a deep breath." Repeat EKG obtained and repeat cardiac enzymes sent. Vital Signs: 13:35 BP 122 / 90; Pulse 137; Resp 24; Temp 98.8; Pulse Ox 100% on R/A; Weight 74.84 kg; cm10 Height 5 ft. 9 in. ; Pain 10/10; 13:55 BP 127 / 96; Pulse 91; Resp 22; Pulse Ox 100% on R/A; ph 15:13 BP 123 / 79; Pulse 75; Resp 18; Pulse Ox 100% on R/A; ph 16:30 BP 125 / 87; Pulse 68; Resp 18; Pulse Ox 99% on R/A; ph 17:38 BP 120 / 92; Pulse 57; Resp 18; Pulse Ox 98% on R/A; ph 13:35 Body Mass Index 24.37 (74.84 kg, 175.26 cm) cm10 13:35 Pain Scale: Adult 10 ED Course: 13:19 Patient arrived in ED. ra3 13:24 [facility] Coates PA-C [facility]. sb4 13:24 Inderjit Acosta MD is Attending Physician. sb4 13:36 Triage completed. cm10 13:36 Arm band placed on Patient placed in an exam room, on a stretcher. EKG completed in cm10 triage. Results shown to MD. 13:36 EKG done, by ED staff, reviewed by Tova Coates PA-C. cm10 13:41 Matti Herrera, RN is Primary Nurse. bp 13:41 Basic Metabolic Panel Sent. cm10 13:41 CBC with Diff Sent. cm10 13:41 D-Dimer Sent. cm10 13:41 LFT's Sent. cm10 13:41 Magnesium Sent. cm10 13:41 NT PRO-BNP Sent. cm10 13:41 PT-INR Sent. cm10 13:41 Troponin HS Sent. cm10 13:41 Initial lab(s) drawn, by tn, sent to lab. Inserted saline lock: 18 gauge in left cm10 antecubital area, using aseptic technique. Blood collected. Flushed with 10 mL NS. 13:58 Patient has correct armband on for positive identification. Placed in gown. Bed in low ph position. Call light in reach. Side rails up X2. Client placed on continuous cardiac and pulse oximetry monitoring. NIBP monitoring applied. production solderer on. Door closed. Noise minimized. Warm blanket given. 13:58 Patient maintains SpO2 saturation greater than 95% on room air. ph 14:49 XRAY Chest (1 view) In Process Unspecified. EDMS 16:21 Chest W/ Con CT In Process Unspecified. EDMS 19:01 No provider procedures requiring assistance completed. IV discontinued, intact, ph bleeding controlled, No redness/swelling at site. Pressure dressing applied. Administered Medications: 14:04 Drug: morphine IVP or IV 4 mg IVP once over 4 mins Route: IVP; Infused Over: 4 mins; ph Site: left antecubital; 14:28 Follow up: Response: No adverse reaction; Pain is unchanged, physician notified ph 14:04 Drug: Ondansetron IVP 4 mg IVP once; over 2 minutes Route: IVP; Site: left antecubital; ph 14:28 Follow up: Response: No adverse reaction ph 14:28 Drug: Ativan IVP 1 mg IVP once Route: IVP; Site: left antecubital; ph 17:38 Follow up: Response: No adverse reaction; Anxiety decreased ph 15:49 Drug: diphenhydrAMINE IVP 25 mg IVP once Route: IVP; Site: left antecubital; bp 17:38 Follow up: Response: No adverse reaction ph 17:38 Drug: NS 0.9% IV 1000 ml IV at 1 bolus Per protocol; 1000 mL bolus Route: IV; Rate: 1 ph bolus; Site: left antecubital; 19:02 Follow up: Response: No adverse reaction; IV Status: Completed infusion; IV Intake: ph 1000ml 17:38 Drug: Ketorolac IVP 30 mg IVP once Route: IVP; Site: left antecubital; ph 18:15 Follow up: Response: No adverse reaction ph Medication: 13:58 VIS not applicable for this client. ph Intake: 19:02 IV: 1000ml; Total: 1000ml. ph Outcome: 18:26 Discharge ordered by MD. avina 19:02 Discharged to home ambulatory, with family, ph 19:02 Condition: good 19:02 Discharge instructions given to patient, family, Instructed on discharge instructions, follow up and referral plans. medication usage, Demonstrated understanding of instructions, follow-up care, medications, Prescriptions given X 1, 19:02 Patient left the ED. ph Signatures: Dispatcher [employer] EDSera Blank RN RN ph Peltier, Brian, RN RN Tova Michaud PA-C PAMaryjane Sheppard RN RN cm10 Pat Friedman ra3
--- NOTE | 2024-08-12 18:26 | EDPHYS ---
Physician Documentation [facility] Name: Hari Rincon Age: 23 yrs Sex: Male : 2000 Arrival Date: 08/12/2024 Time: 13:17 Bed 8 Private MD: ED Physician Inderjit Acosta HPI: 08/12 13:51 This 23 yrs old Male presents to ER via Wheelchair with complaints of Chest Pain. sb4 13:51 The patient or guardian reports chest pain that is located primarily in the substernal sb4 area. The pain radiates to back. Associated signs and symptoms: Pertinent positives: dizziness, shortness of breath. The chest pain is described as sharp. Modifying factors: The symptoms are alleviated by nothing. the symptoms are aggravated by nothing. The patient has not experienced similar symptoms in the past. sudden onset of chest pain this morning. denies any recent illnesses, has not been coughing or vomiting. does report history of asthma but states this is different. Historical: - Allergies: 13:36 No Known Allergies; cm10 - PMHx: 13:36 Anxiety; Kidney stone; cm10 - PSHx: 13:36 Lithotripsy; cm10 - Immunization history:: Adult Immunizations up to date. - Infectious Disease History:: Denies. - Social history:: Smoking status: Patient/guardian denies using tobacco. ROS: 13:51 Constitutional: Negative for fever, chills, and weight loss, sb4 13:51 Cardiovascular: Positive for chest pain, 13:51 Respiratory: Positive for shortness of breath, 13:51 Neuro: Positive for dizziness, 13:51 Psych: Positive for anxiety, 13:51 All other systems are negative, Exam: 13:51 Head/Face: Normocephalic, atraumatic. Eyes: Extra-ocular motions intact. Periorbital sb4 areas with no swelling, redness, or edema. ENT: Mucous membranes moist. Skin: Warm, dry with normal turgor. Normal color with no rashes, no lesions, and no evidence of cellulitis. 13:51 Constitutional: The patient appears alert, awake, anxious, in obvious pain, restless, crying 13:51 Cardiovascular: Rate: tachycardic, Rhythm: regular, 13:51 Respiratory: mild respiratory distress is noted, Respirations: shallow respirations, tachypnea, Breath sounds: are clear throughout, Vital Signs: 13:35 BP 122 / 90; Pulse 137; Resp 24; Temp 98.8; Pulse Ox 100% on R/A; Weight 74.84 kg; cm10 Height 5 ft. 9 in. ; Pain 10/10; 13:55 BP 127 / 96; Pulse 91; Resp 22; Pulse Ox 100% on R/A; ph 15:13 BP 123 / 79; Pulse 75; Resp 18; Pulse Ox 100% on R/A; ph 16:30 BP 125 / 87; Pulse 68; Resp 18; Pulse Ox 99% on R/A; ph 17:38 BP 120 / 92; Pulse 57; Resp 18; Pulse Ox 98% on R/A; ph 13:35 Body Mass Index 24.37 (74.84 kg, 175.26 cm) cm10 13:35 Pain Scale: Adult cm10 MDM: 13:37 Patient medically screened. sb4 17:16 Data reviewed: vital signs, nurses notes, lab test result(s), EKG, radiologic studies, sb4 and as a result, I will discharge patient. Historians other than the Patient: Parent: mom and dad. Scoring Tools HEART Score: History: ECG: Age: Risk Factors: 1 or 2 risk factors (1), Troponin: Total Score = 1. Counseling: I had a detailed discussion with the patient and/or guardian regarding the historical points, exam findings, and any diagnostic results supporting the discharge/admit diagnosis, lab results, radiology results, to return to the emergency department if symptoms worsen or persist or if there are any questions or concerns that arise at home. 08/12 13:37 Order name: Basic Metabolic Panel; Complete Time: 14:18 sb4 08/12 13:37 Order name: CBC with Diff; Complete Time: 14:05 sb4 08/12 13:37 Order name: D-Dimer; Complete Time: 14:05 sb4 08/12 13:37 Order name: LFT's; Complete Time: 14:18 sb4 08/12 13:37 Order name: Magnesium; Complete Time: 14:18 sb4 08/12 13:37 Order name: NT PRO-BNP; Complete Time: 14:18 sb4 08/12 13:37 Order name: PT-INR; Complete Time: 14:05 sb4 08/12 13:37 Order name: Troponin HS; Complete Time: 14:18 sb4 08/12 14:07 Order name: SARS RAPID; Complete Time: 15:01 sb4 08/12 14:07 Order name: Flu; Complete Time: 15:02 sb4 08/12 14:07 Order name: Strep sb4 08/12 15:04 Order name: Throat Culture EDNY 08/12 16:51 Order name: Troponin High Sensitivity; Complete Time: 18:10 sb4 08/12 13:37 Order name: XRAY Chest (1 view); Complete Time: 15:24 sb4 08/12 15:25 Order name: Chest W/ Con CT; Complete Time: 17:14 sb4 08/12 13:37 Order name: EKG; Complete Time: 13:38 sb4 08/12 13:37 Order name: Cardiac monitoring; Complete Time: 13:55 sb4 08/12 13:37 Order name: EKG - Nurse/Tech; Complete Time: 13:41 sb4 08/12 13:37 Order name: IV Saline Lock; Complete Time: 13:41 sb4 08/12 13:37 Order name: Labs collected and sent; Complete Time: 13:41 sb4 08/12 13:37 Order name: O2 Per Protocol; Complete Time: 13:43 sb4 08/12 13:37 Order name: O2 Sat Monitoring; Complete Time: 13:43 sb4 08/12 16:30 Order name: EKG - Nurse/Tech; Complete Time: 17:16 sb4 EC:40 Rate is 117 beats/min. Rhythm is regular, Sinus tachycardia. OR interval is normal at sb4 116 msec. QRS interval is normal at 92 msec. QT interval is normal at 366 msec. No Q waves. T waves are Normal. No ST changes noted. Clinical impression: Sinus tachycardia. Interpreted by me. Reviewed by me. 16:51 Rate is 63 beats/min. Rhythm is regular, Normal Sinus Rhythm. OR interval is normal at sb4 112 msec. QRS interval is normal at 108 msec. QT interval is normal at 392 msec. No Q waves. T waves are Normal. No ST changes noted. Clinical impression: Normal ECG. Interpreted by me. Reviewed by me. Administered Medications: 14:04 Drug: morphine IVP or IV 4 mg IVP once over 4 mins Route: IVP; Infused Over: 4 mins; ph Site: left antecubital; 14:28 Follow up: Response: No adverse reaction; Pain is unchanged, physician notified ph 14:04 Drug: Ondansetron IVP 4 mg IVP once; over 2 minutes Route: IVP; Site: left antecubital; ph 14:28 Follow up: Response: No adverse reaction ph 14:28 Drug: Ativan IVP 1 mg IVP once Route: IVP; Site: left antecubital; ph 17:38 Follow up: Response: No adverse reaction; Anxiety decreased ph 15:49 Drug: diphenhydrAMINE IVP 25 mg IVP once Route: IVP; Site: left antecubital; bp 17:38 Follow up: Response: No adverse reaction ph 17:38 Drug: NS 0.9% IV 1000 ml IV at 1 bolus Per protocol; 1000 mL bolus Route: IV; Rate: 1 ph bolus; Site: left antecubital; 19:02 Follow up: Response: No adverse reaction; IV Status: Completed infusion; IV Intake: ph 1000ml 17:38 Drug: Ketorolac IVP 30 mg IVP once Route: IVP; Site: left antecubital; ph 18:15 Follow up: Response: No adverse reaction ph Disposition Summary: 08/12/24 18:26 Discharge Ordered Notes: Location: Home sb4 Problem: new sb4 Symptoms: have improved sb4 Condition: Stable sb4 Diagnosis - Chest pain, unspecified sb4 - Anxiety disorder, unspecified sb4 - Pain in left shoulder sb4 Followup: sb4 - With: Emergency Department - When: As needed - Reason: Trouble breathing, Worsening of condition Discharge Instructions: - Discharge Summary Sheet sb4 - Nonspecific Chest Pain, Adult sb4 - Pleurodynia sb4 - Managing Anxiety, Adult sb4 Forms: - Work release form sb4 - Patient Portal Instructions sb4 - Leadership Thank You Letter sb4 Prescriptions: - Cyclobenzaprine 10 mg Oral Tablet - take 1 tablet ORAL route every 8 hours As needed; 30 tablet; Refills: 0, sb4 Product Selection Permitted Signatures: Dispatcher [employer] Sera Galvan RN RN ph Peltier, Brian, RN RN Tova Michaud PA-C PA-C sb4 Maryjane Castro RN RN cm10 Corrections: (The following items were deleted from the chart) 14:08 14:08 SARS-COV-2 Antigen Rapid+I.LAB.BRZ ordered. EDMS EDMS 14: 14:08 Influenza Screen (A \T\ B)+BA.LAB.BRZ ordered. EDMS EDMS 14: 14:08 Group A Streptococcus Rapid Sc+BA.LAB.BRZ ordered. EDMS EDMS 14:32 13:51 Respiratory: the patient does not display signs of respiratory distress, sb4 Respirations: shallow respirations, tachypnea, Breath sounds: are clear throughout, sb4
[2024-08-12 19:33] VITALS: TEMP 98.8
[2024-08-12 19:40] VITALS: BP 120/92; O2SAT 98
--- NOTE | 2024-08-13 16:59 | EKG ---
Test Date: 2024-08-12 Test Time: 16:48:55 Blending Tank Helper: PH MEASUREMENT RESULTS: Intervals: Rate: 63 [place]: 112 QRSD: 108 QT: 392 QTc: 401 [place]: P: 65 [place]: 112 QRS: 82 T: 74 INTERPRETIVE STATEMENTS: Normal sinus rhythm Moderate voltage criteria for LVH, may be normal variant Borderline ECG Compared to ECG 08/12/2024 13:31:55 Sinus tachycardia no longer present Atrial abnormality no longer present Early repolarization no longer present Electronically Signed On 08-13-24 16:55:01 CDT by Sean William
--- NOTE | 2024-08-13 16:59 | EKG ---
Test Date: 2024-08-12 Test Time: 13:31:55 Mammography Technologist: TIMOTHY MEASUREMENT RESULTS: Intervals: Rate: 117 [place]: 116 QRSD: 92 QT: 366 QTc: 510 [place]: P: 84 VA: 116 QRS: 85 T: -13 INTERPRETIVE STATEMENTS: Sinus tachycardia Biatrial enlargement Left ventricular hypertrophy with repolarization abnormality Abnormal ECG Compared to ECG 10/26/2023 16:16:26 Atrial abnormality now present Left ventricular hypertrophy now present Early repolarization now present Sinus rhythm no longer present T-wave abnormality no longer present Prolonged QT interval no longer present Electronically Signed On 08-13-24 16:55:11 CDT by Sean William
== END 2024-08-12 19:02 | disposition home or self-care (01) ==
LOC: ER 13:17
DX: R07.9 Chest pain, unspecified (principal); F41.9 Anxiety disorder, unspecified; M25.512 Pain in left shoulder; Z11.52 Encounter for screening for COVID-19
CPT/HCPCS: 96361; 93005 ×2; 87070; 85025; 80048; 36415; 83735; 85610; 85379; 80076; 87081; 84484 ×2; 83880; 87804 ×2; 71260; 71045; 96375; 96374; 99285; 87811; Q9967; J1200; J2405; J7030

== ENCOUNTER 2024-12-10 23:25 | Emergency (ER) | payer BC ==
[2024-12-11] MEDS ORDERED: ONDANSETRON 4 MG/2 ML VIAL ONE (00:03)
[2024-12-11] MEDS ORDERED: LORAZEPAM 1 MG TABLET ONE (00:03)
[2024-12-11 00:39] LABS: PT Prothrombin Time 10.9 SECONDS (9.4-12.5); PTT, Activated Partial Thromb 32.8 SECONDS (24.3-36.9); Protime INR 1.04
[2024-12-11 00:49] LABS: ALT/SGPT 29 U/L (16-61); AST/SGOT 22 U/L (15-37); Albumin 4.3 g/dL (3.4-5.0); Albumin/Globulin Ratio 1.3 (1.1-1.8); Alkaline Phosphatase 112 U/L (45-117); Anion Gap 11.1 mEq/L (5.0-15.0); BUN Blood Urea Nitrogen 12 mg/dL (7-18); Bicarbonate 23 mEq/L (21-32); Bilirubin Total 0.5 mg/dL (0.2-1.0); Globulin 3.3 g/dL (2.3-3.5); Glomerular Filtration Rate 123 ml/min (=/>90); Glucose Level 92 mg/dL (74-106); Potassium 4.1 mEq/L (3.5-5.1); Protein, Total 7.6 g/dL (6.4-8.2); Sodium Level 139 mEq/L (136-145)
[2024-12-11 00:50] LABS: Bilirubin Direct < 0.2 mg/dL (0-0.2); Bilirubin Indirect, Calculated 0.3 mg/dL (0.2-0.8)
[2024-12-11 00:54] LABS: Absolute Basophils 0.1 K/uL (0-0.5); Absolute Eosinophils 0.4 K/uL (0-0.5); Absolute Lymphocytes (CBC) 3.2 K/uL (0.7-4.9); Absolute Monocytes 0.7 K/uL (0.1-1.3); Absolute Neutrophil 5.7 K/uL (1.8-8.0); Basophils % 1.1 % (0-1.3); Hematocrit 45.5 % (39.6-49.0); Hemoglobin 15.9 g/dL (13.6-17.9); Lymphocytes % 31.6 % (15.3-44.8); MCH 30.9 pg (27.0-35.0); MCHC 34.9 g/dL (32.0-36.0); MCV 88.6 fL (80-100); MPV 9.9 fL (7.6-11.3); Monocytes % 6.5 % (3.3-12.3); Neutrophils % 56.8 % (41.7-73.7); Nucleated Red Blood Cells % 0.1 % (0-0); Platelets 293 thou/uL (152-406); RBC Red Blood Cell Count 5.14 M/uL (4.33-5.43); Red Cell Distribution Width 12.8 % (12.1-15.2)
[2024-12-11 01:01] LABS: Sqamous Epithelial None Seen /HPF (None Seen); Urine Bacteria None Seen /HPF (<20); Urine Culture Reflex Order NOT NEEDED; Urine RBC None Seen /HPF (None Seen); Urine WBC None Seen /HPF (<5)
[2024-12-11 01:03] LABS: Specific Gravity 1.022 (1.005-1.030); Urine Bilirubin NEGATIVE (Negative); Urine Blood Negative (Negative); Urine Clarity Extremely Turbid (Clear); Urine Color Yellow (Yellow); Urine Glucose NEGATIVE (Negative); Urine Ketones NEGATIVE (Negative); Urine Microscopic Reflex YN NO UMIC; Urine Nitrite NEGATIVE (Negative); Urine Protein TRACE (Negative); Urine Urobilinogen Normal (Normal)
[2024-12-11] MEDS ORDERED: NA CHLORIDE 0.9% 1,000 ML ONE (01:05)
[2024-12-11] MEDS ORDERED: METOCLOPRAMIDE 10 MG/2mL INJ ONE (01:05)
[2024-12-11 01:20] LABS: Barbiturates NEGATIVE (NEGATIVE); Benzodiazepines NEGATIVE (NEGATIVE); Cocaine NEGATIVE (NEGATIVE); METHAMPHETAM NEGATIVE (NEGATIVE); Methadone NEGATIVE (NEGATIVE); Opiates NEGATIVE (NEGATIVE); Phencyclidine NEGATIVE (NEGATIVE); THC Cannibis POSITIVE (NEGATIVE)
--- NOTE | 2024-12-11 05:55 | EDPHYS ---
Physician Documentation [facility] Name: Hari Rincon Age: 24 yrs Sex: Male : 2000 Arrival Date: 12/10/2024 Time: 23:25 Bed 16 Private MD: ED Physician Ricky Ray HPI: 12/10 23:33 This 24 yrs old Male presents to ER via Unassigned with complaints of sp4 Suicidal Ideation. 12/11 05:03 24-year-old male presents with report of all suicidal statements. Patient states that sp4 at home he had argument with his father. Patient states he is in a difficult situation at this time he is unemployed. He said a few things that he thinks may have been misconstrued as a suicidal statement. Patient at this time denies suicidal ideation or plan. Denies homicidal ideation or plan. Denied hallucinations or delusions.. Historical: - Allergies: 03:03 No Known Allergies; br2 - PMHx: 03:03 Anxiety; Kidney stone; br2 - PSHx: 03:03 Lithotripsy; br2 - Immunization history:: Adult Immunizations not up to date. - Infectious Disease History:: Denies. - Social history:: Smoking status: Patient denies any tobacco usage or history of. Patient uses alcohol, occasionally. - Family history:: not pertinent. ROS: 05:03 Constitutional: Negative for fever, chills, and weight loss, sp4 05:03 All other systems are negative, Exam: 05:03 Constitutional: This is a well developed, well nourished patient who is awake, alert, sp4 and in no acute distress. Head/Face: Normocephalic, atraumatic. Eyes: Pupils equal round and reactive to light, extra-ocular motions intact. Lids and lashes normal. Conjunctiva and sclera are not injected. Cornea within normal limits. Periorbital areas with no swelling, redness, or edema. ENT: Nares patent. No nasal discharge, no septal abnormalities noted. Tympanic membranes are normal and external auditory canals are clear. Oropharynx with no redness, swelling, or masses, exudates, or evidence of obstruction, uvula midline. Mucous membranes moist. Neck: Trachea midline, no thyromegaly or masses palpated, and no cervical lymphadenopathy. Supple, full range of motion without nuchal rigidity, or vertebral point tenderness. Chest/axilla: Normal chest wall appearance and motion. Nontender with no deformity. No lesions are appreciated. Cardiovascular: Regular rate and rhythm with a normal S1 and S2. No gallops, murmurs, or rubs. Normal PMI, no JVD. No pulse deficits. Respiratory: Lungs have equal breath sounds bilaterally, clear to auscultation and percussion. No rales, rhonchi or wheezes noted. No increased work of breathing, no retractions or nasal flaring. Abdomen/GI: Soft, with normal bowel sounds. No distension or tympany. No guarding or rebound. No evidence of tenderness throughout. Back: No spinal tenderness. No costovertebral tenderness. Skin: Warm, dry with normal turgor. Normal color with no rashes, no lesions, and no evidence of cellulitis. MS/ Extremity: Pulses equal, no cyanosis. Neurovascular intact. Full, normal range of motion. Neuro: Awake and alert, GCS 15, oriented to person, place, time, and situation. Cranial nerves II-XII grossly intact. Motor strength 5/5 in all extremities. Sensory grossly intact. Psych: Awake, alert, with orientation to person, place and time. Behavior, mood, and affect are within normal limits 05:03 ECG was reviewed by the Attending Physician. EKG at 0044 normal sinus rhythm, normal EKG. Vital Signs: 12/10 23:51 BP 157 / 99; Pulse 90; Resp 18; Pulse Ox 96% on R/A; Weight 72.57 kg; Height 5 ft. 9 br2 in. ; Pain 0/10; 12/11 06:04 BP 150 / 84; Pulse 84; Resp 18; Pulse Ox 96% ; br2 12/10 23:51 Body Mass Index 23.63 (72.57 kg, 175.26 cm) br2 12/10 23:51 Pain Scale: Adult br2 Chan Coma Score: 05:03 Eye Response: spontaneous(4). Motor Response: obeys commands(6). Verbal Response: sp4 oriented(5). Total: 15. MDM: 12/10 23:34 Medical Screening Exam initiated sp4 12/11 00:44 Differential diagnosis: drug withdrawal. acute psychotic break, depression, psychosis sp4 secondary to non-compliance. Data reviewed: vital signs, nurses notes, old medical records, lab test result(s). 05:55 ED course: Patient states that he is not suicidal. Has no ideation or plan. Patient is sp4 stable for discharge from the ER. 12/10 23:33 Order name: Acetaminophen; Complete Time: 00:55 sp4 12/10 23:33 Order name: Basic Metabolic Panel; Complete Time: 00:55 sp4 12/10 23:33 Order name: CBC with Diff; Complete Time: 01:09 sp4 12/10 23:33 Order name: ETOH Level; Complete Time: 00:55 sp4 12/10 23:33 Order name: Hepatic Function; Complete Time: 00:55 sp4 12/10 23:33 Order name: PT-INR; Complete Time: 00:55 sp4 12/10 23:33 Order name: Ptt, Activated; Complete Time: 00:55 sp4 12/10 23:33 Order name: Salicylate; Complete Time: 00:55 sp4 12/10 23:33 Order name: Urinalysis w/ reflexes; Complete Time: 01:09 sp4 12/10 23:33 Order name: Urine Drug Screen; Complete Time: 02:43 sp4 12/10 23:33 Order name: EKG; Complete Time: 23:34 sp4 12/10 23:33 Order name: EKG - Nurse/Tech; Complete Time: 01:09 4 12/10 23:33 Order name: IV Saline Lock; Complete Time: 00:37 4 12/10 23:33 Order name: Labs collected and sent; Complete Time: 00:37 4 12/10 23:33 Order name: Suicide Precautions; Complete Time: 00:37 sp4 12/10 23:33 Order name: Suicide Screening ([employer]); Complete Time: 00:43 sp4 EC:44 Rate is 76 beats/min. Rhythm is regular, Normal Sinus Rhythm. QRS [place] is Normal. CT sp4 interval is normal. QRS interval is normal. QT interval is normal. No Q waves. T waves are Normal. No ST changes noted. Clinical impression: No evidence of ischemia. Interpreted by me. Reviewed by me. Administered Medications: 00:34 Drug: Ondansetron IVP 8 mg IVP once; over 2 minutes Route: IVP; Site: left antecubital; br2 01:00 Follow up: Response: No adverse reaction; Vomiting decreased br2 01:09 Drug: metoCLOPramide IVP 10 mg IVP once; over 1 to 2 minutes Route: IVP; Site: left br2 antecubital; 01:40 Follow up: Response: No adverse reaction br2 01:09 Drug: NS 0.9% IV 1000 ml IV at 1 bolus Per protocol; to be given as a bolus over 60 br2 minutes Route: IV; Rate: 1 bolus; Site: left antecubital; 02:15 Follow up: IV Status: Completed infusion; IV Intake: 1000ml br2 06:10 Follow up: IV Status: Completed infusion; IV Intake: 1000ml aa10 06:10 Follow up: Response: No adverse reaction; Marked relief of symptoms aa10 01:44 Drug: LORazepam PO 2 mg PO once Route: PO; br2 02:15 Follow up: Response: No adverse reaction br2 Disposition Summary: 12/11/24 05:54 Discharge Ordered Notes: Location: Home sp4 Problem: new sp4 Symptoms: have improved sp4 Condition: Stable sp4 Diagnosis - Acute Emotional Upset sp4 - Cannabis use disorder sp4 Followup: sp4 - With: Cristian Smith MD - When: 7 - 10 days - Reason: Recheck today's complaints Discharge Instructions: - Discharge Summary Sheet sp4 - Managing Depression, Adult sp4 Forms: - Patient Portal Instructions sp4 Signatures: Dispatcher [employer] Ricky Salgado MD MD sp4 Linda Weathers RN RN br2 Michael Kaplan RN aa10
--- NOTE | 2024-12-11 05:55 | ER ---
Nurse's Notes [facility] Name: Hari Rincon Age: 24 yrs Sex: Male : 2000 Arrival Date: 12/10/2024 Time: 23:25 Bed 16 Private MD: Diagnosis: Acute Emotional Upset;Cannabis use disorder Presentation: 12/10 23:51 Chief complaint: Patient states: PT STATES HE AND HAS FATHER HAVE ISSUES WITH HIS br2 LIVING ARRANGEMENTS (PT LIVES WITH PARENTS) AND HIS FATHER SENT PT A TEXT STATING "YOU NEED TO FIND SOMEONE ELSE TO LIVE" . PT HAS AN [place] PER [place]. PER PD PT TOLD HIS SISTER "I'M TIRED OF LIVING I'M JUST TO KILL MYSELF, IT WOULD BE EASY, I'LL JUST GET A GUN AND KILL MYSELF. Coronavirus screen: Client denies travel out of the [place] in the last 14 days. Ebola Screen: Patient denies exposure to infectious person. 23:51 Method Of Arrival: Law Enforcement: [place] [facility] br2 23:51 Acuity: NANDO 3 br2 23:51 Initial Sepsis Screen: Does the patient meet any 2 criteria? No. Patient's initial br2 sepsis screen is negative. Does the patient have a suspected source of infection? No. Patient's initial sepsis screen is negative. Risk Assessment: Do you want to hurt yourself or someone else? Patient reports no desire to harm self or others. Triage Assessment: 12/11 03:03 General: Appears slender, Behavior is cooperative, anxious, crying. Pain: Denies pain. br2 Historical: - Allergies: 03:03 No Known Allergies; br2 - PMHx: 03:03 Anxiety; Kidney stone; br2 - PSHx: 03:03 Lithotripsy; br2 - Immunization history:: Adult Immunizations not up to date. - Infectious Disease History:: Denies. - Social history:: Smoking status: Patient denies any tobacco usage or history of. Patient uses alcohol, occasionally. - Family history:: not pertinent. Screenin/14 23:51 [facility] ED Fall Risk Assessment (Adult) History of falling in the last 3 months, br2 including since admission No falls in past 3 months (0 pts) Confusion or Disorientation No (0 pts) Intoxicated or Sedated No (0 pts) Impaired Gait No (0 pts) Mobility Assist Device Used No (0 pt) Altered Elimination No (0 pt) Score/Fall Risk Level 0 - 2 = Low Risk Oriented to surroundings. Abuse screen: Denies threats or abuse. Denies injuries from another. Nutritional screening: No deficits noted. Tuberculosis screening: No symptoms or risk factors identified. Assessment: 12/11 00:29 Reassessment: Patient personal items include: phone iphone 14 promax, 1 pair of aa10 shoe,one black hoodie,1 brown short, one brown wallet. 02:00 Reassessment: PT EVALUATED BY DR RAY AND HAS REMOVED PT FROM SI PRECAUTIONS. PT vc1 RESTING IN BED. 02:00 Reassessment: Patient and/or family updated on plan of care and expected duration. Pain br2 level reassessed. Patient is alert, oriented x 3, equal unlabored respirations, skin warm/dry/pink. PER PT WILL BE DISCHARGED THIS MORNING. 03:19 Reassessment: Patient and/or family updated on plan of care and expected duration. Pain br2 level reassessed. Patient is alert, oriented x 3, equal unlabored respirations, skin warm/dry/pink. Patient states feeling better. Patient states symptoms have improved. 05:38 Reassessment: SITTING ON SIDE OF BED EATING SANDWICH. br2 06:01 Reassessment: Patient and/or family updated on plan of care and expected duration. Pain br2 level reassessed. Patient is alert, oriented x 3, equal unlabored respirations, skin warm/dry/pink. Patient states feeling better. Patient states symptoms have improved. Psych: 12/10 23:51 [place] Suicide Severity Screening: In the past month, have you wished you were br2 or wished you could go to sleep and not wake up? Patient responds "No.". Subjective: Having thoughts of suicide. Denies suicidal plan. Objective:. Interventions: Removed personal items and placed in bag. Patient placed in hospital gown. Searched person for dangerous items. Urine collected and sent for urine drug test. Belonging list filled out. Safety Checks: Personal items have been removed. Door is open. Pt denies substance abuse. Commitment: Patient will be an involuntary commitment. LENNOX. 12/11 00:38 [place] Suicide Severity Screening: In the past month, have you wished you were aa10 or wished you could go to sleep and not wake up? "In the past month, have you actually had any thoughts of killing yourself?" Patient responds "yes." Based off the client's response additional [place] suicide severity screening questions to be further documented on paper forms. "In your lifetime, have you ever done anything, started to do anything, or prepared to do anything to end your life?" Patient responds "yes." Patient reports suicidal intent within 3 past months. Vital Signs: 12/10 23:51 BP 157 / 99; Pulse 90; Resp 18; Pulse Ox 96% on R/A; Weight 72.57 kg; Height 5 ft. 9 br2 in. ; Pain 0/10; 12/11 06:04 BP 150 / 84; Pulse 84; Resp 18; Pulse Ox 96% ; br2 12/10 23:51 Body Mass Index 23.63 (72.57 kg, 175.26 cm) br2 12/10 23:51 Pain Scale: Adult br2 [place] Coma Score: 05:03 Eye Response: spontaneous(4). Motor Response: obeys commands(6). Verbal Response: sp4 oriented(5). Total: 15. ED Course: 12/10 23:29 Patient arrived in ED. br2 23:33 Ricky Ray MD is Attending Physician. sp4 23:43 Michael Kaplan, KAITLIN is Primary Nurse. aa10 23:51 Patient has correct armband on for positive identification. Placed in gown. SI br2 PRECAUTIONS. Provided Education on: PLAN OF CARE. 12/11 00:35 Inserted saline lock: 18 gauge in left antecubital area, using aseptic technique. aa10 00:47 EKG done, by ED staff, reviewed by Ricky Ray MD. oe 03:03 Triage completed. br2 03:03 Arm band placed on. br2 05:54 Cristian Smith MD is Referral Physician. sp4 06:01 No provider procedures requiring assistance completed. IV discontinued, intact, br2 bleeding controlled, No redness/swelling at site. Pressure dressing applied. 06:09 IV discontinued. aa10 Administered Medications: 00:34 Drug: Ondansetron IVP 8 mg IVP once; over 2 minutes Route: IVP; Site: left antecubital; br2 01:00 Follow up: Response: No adverse reaction; Vomiting decreased br2 01:09 Drug: metoCLOPramide IVP 10 mg IVP once; over 1 to 2 minutes Route: IVP; Site: left br2 antecubital; 01:40 Follow up: Response: No adverse reaction br2 01:09 Drug: NS 0.9% IV 1000 ml IV at 1 bolus Per protocol; to be given as a bolus over 60 br2 minutes Route: IV; Rate: 1 bolus; Site: left antecubital; 02:15 Follow up: IV Status: Completed infusion; IV Intake: 1000ml br2 06:10 Follow up: IV Status: Completed infusion; IV Intake: 1000ml aa10 06:10 Follow up: Response: No adverse reaction; Marked relief of symptoms aa10 01:44 Drug: LORazepam PO 2 mg PO once Route: PO; br2 02:15 Follow up: Response: No adverse reaction br2 Medication: 06:01 VIS not applicable for this client. br2 Intake: 02:15 IV: 1000ml; Total: 1000ml. br2 06:10 IV: 1000ml; Total: 2000ml. aa10 Outcome: 05:54 Discharge ordered by . sp4 06:01 Discharged to home ambulatory, br2 06:01 Condition: improved 06:01 Discharge instructions given to patient, Instructed on discharge instructions, follow up and referral plans. Demonstrated understanding of instructions, follow-up care, 06:10 Patient left the ED. br2 Signatures: Tesfaye Dyer Vanessa, RN RN vc1 Ricky Ray MD MD sp4 Linda Weathers RN RN br2 Michael Kaplan RN RN aa10 Corrections: (The following items were deleted from the chart) 05:06 03:12 Reassessment: PT EVALUATED BY DR RAY AND HAS REMOVED PT FROM SI vc1 PRECAUTIONS. PT RESTING IN BED. br2
--- NOTE | 2024-12-12 11:53 | EKG ---
Test Date: 2024-12-11 Test Time: 00:44:16 Spiral Tube Winder Helper: RACHANA MEASUREMENT RESULTS: Intervals: Rate: 76 MT: 118 QRSD: 98 QT: 340 QTc: 382 [place]: P: 60 MT: 118 QRS: 74 T: 70 INTERPRETIVE STATEMENTS: Normal sinus rhythm Minimal voltage criteria for LVH, may be normal variant Early repolarization Borderline ECG Compared to ECG 08/16/2024 11:43:44 Left ventricular hypertrophy now present Early repolarization now present Sinus arrhythmia no longer present T-wave abnormality no longer present Possible ischemia no longer present Electronically Signed On 12-12-24 11:52:55 GIS ANALYST DEVELOPER by Bart Francis
[2024-12-13 01:59] VITALS: BP 150/84; O2SAT 96
== END 2024-12-11 06:10 | disposition home or self-care (01) ==
LOC: ER 23:25
DX: F43.0 Acute stress reaction (principal); F12.90 Cannabis use, unspecified, uncomplicated
CPT/HCPCS: 96361; 93005; 85025; 80048; 36415; 85610; 80076; 85730; 81003; 80307; 96375; 96374; 99285; 80143; 80179; 82077; J2765; J2405; J7030